=== PATIENT | male | born 1940 | race Caucasian/White ===

== ENCOUNTER → 2016-11-14 | Outpatient (CLI) | payer BC ==
--- NOTE | 2016-11-14 16:01 | DIAGNOSTIC IMAGING REPORT ---
RIGHT KNEE 3 VIEWS CLINICAL HISTORY: Right knee pain. FINDINGS: AP, crosstable lateral, and sunrise views of the right knee are obtained. No prior studies are available for comparison at the time of dictation. The skeletal structures are osteopenic. No fracture is seen. There is moderate tricompartmental degenerative joint space narrowing. This is greatest the medial and patellofemoral compartments. There are marginal osteophytes, degenerative beaking of the tibial spine, and large patellar enthesophytes. A small joint effusion is noted. Soft tissue edema is present around the knee. There is atherosclerotic calcification of the popliteal artery. IMPRESSION: 1. Soft tissue swelling and joint effusion. No fracture is seen. 2. Osteopenia and arthritic change as above. Electronically signed by: Colby Mcmahon M.D. 11/14/2016 3:59 PM Dictated Date/Time: 11/14/2016 3:58 PM
--- NOTE | 2016-11-14 16:01 | DIAGNOSTIC IMAGING REPORT ---
LEFT HAND MIN 3 VIEWS ROUTINE CLINICAL HISTORY: RHEUM ARTHRITIS pain COMPARISON: None DISCUSSION: Findings consistent with her erosive or rheumatoid change throughout the wrist and hand. A metallic foreign body adjacent to the distal aspect third metacarpal. This appears be a nonacute finding. Findings suggesting old trauma and associated deformity proximal interphalangeal joint fifth finger. Marginal erosive changes throughout There is no evidence for soft tissue swelling. IMPRESSION: Findings consistent with erosive rheumatoid arthritic changes throughout the hand and wrist. Electronically signed by: Jericho Dawn M.D. 11/14/2016 3:59 PM Dictated Date/Time: 11/14/2016 3:59 PM
--- NOTE | 2016-11-14 16:06 | DIAGNOSTIC IMAGING REPORT ---
RIGHT HAND MIN 3 VIEWS ROUTINE CLINICAL HISTORY: Rheumatoid arthritis COMPARISON STUDY: None. FINDINGS: Bone mineralization is intact. No fractures identified. Erosive changes seen at the wrist. Mild diffuse soft tissue swelling within the hand and wrist. There are also erosive changes seen at the second and third MCP joints with superimposed osteoarthritis. There is [id number]: Within the DIP and PIP joints with associated marginal osteophytes. This also favors osteoarthritis. There are a few small erosive changes within the DIP and PIP joints which may also represent areas of rheumatoid arthritis. No subluxations. IMPRESSION: 1. Multifocal periarticular erosions seen within the hand and wrist consistent with the patient's history of rheumatoid arthritis. 2. There is diffuse soft tissue swelling within the hand and wrist. 3. There are superimposed osteoarthritis within the hand and wrist. Electronically signed by: Eddie Orona M.D. 11/14/2016 4:05 PM Dictated Date/Time: 11/14/2016 3:59 PM
[2016-11-14 16:27] LABS: BASO % 0.4 %; BASO ABS # 0.03 K/uL (0-0.2); HEMATOCRIT 29.1 % (42-52); IG% 2.5 %; LYMPH % 14.5 %; LYMPH ABS # 1.21 K/uL (1.2-3.4); MEAN CELL VOLUME 85.1 fL (80-100); MEAN CORPUSCULAR HGB CONC 30.6 g/dl (32-36); MONO % 5.9 %; NEUT % 75.7 %; PLATELET COUNT 397 K/uL (130-400); RED BLOOD COUNT 3.42 M/uL (4.7-6.1); WHITE BLOOD COUNT 8.35 K/uL (4.8-10.8)
[2016-11-14 16:58] LABS: ALT/SGPT 23 U/L (12-78)
[2016-11-14 17:07] LABS: ALKALINE PHOSPHATASE 80 U/L (45-117); AST/SGOT 15 U/L (15-37)
[2016-11-14 17:11] LABS: ANISOCYTOSIS PRESENT; COMPLETE YES; POLYCHROMASIA 1+
== END | disposition home or self-care (01) ==
LOC: C.RAD1850 15:15
PROVIDERS: ATTEND Internal Medicine Rheumatology
DX: M06.9 Rheumatoid arthritis, unspecified (principal); M25.561 Pain in right knee; M79.643 Pain in unspecified hand; Z79.899 Other long term (current) drug therapy; M19.031 Primary osteoarthritis, right wrist; M19.041 Primary osteoarthritis, right hand; M85.80 Other specified disorders of bone density and structure, unspecified site; M79.89 Other specified soft tissue disorders; M25.461 Effusion, right knee

== ENCOUNTER 2018-04-30 12:22 | Inpatient (IN) | payer MEDICARE, OTHER ==
[~2018-04-30] VITALS: Ht 170.2 cm; Wt 101.8 kg
[~2018-04-30 12:22] MED LIST: AMLO5TAB3 PO; ASPECOTC PO; LISI20TA3 PO; PRED10TA PO
[2018-04-30] MEDS ORDERED: WARF3TAB6 PO (13:18)
[2018-04-30] MEDS ORDERED: DOCU-94 PO (13:18)
[2018-04-30] MEDS ORDERED: PRAV20TA PO (13:18)
[2018-04-30] MEDS ORDERED: SODI325T9 PO (13:18)
[2018-04-30] MEDS ORDERED: AMLO10TA3 PO (13:18)
[2018-04-30] MEDS ORDERED: LEFL20TA PO (13:18)
[2018-04-30] MEDS ORDERED: ACET-1256 PO (13:18)
[2018-04-30] MEDS ORDERED: ONDANSETRON INJ 2 MG/ML 2 ML VIAL IV STA (13:42)
[2018-04-30] MEDS ORDERED: MoRPHine SULFATE 10 MG/ML CARP/VIAL IV STA (13:42)
[2018-04-30] MEDS ORDERED: MoRPHine SULFATE 4 MG/ML 1 ML CARP\\VIAL ONE (14:24)
--- NOTE | 2018-04-30 14:29 | DIAGNOSTIC IMAGING REPORT ---
CHEST ONE VIEW PORTABLE HISTORY: 77 years-old Male sob eval for pna acute shortness of breath COMPARISON: Chest CT 03/16/2018 TECHNIQUE: Portable AP view of the chest FINDINGS: Cardiac silhouette is mildly enlarged. Calcification of the aorta. No pneumothorax or overt pulmonary edema. Calcified pleural plaques redemonstrated. Chronic mild blunting of the costophrenic angles without large pleural effusion. Patchy alveolar opacities about the right lung base. Degenerative changes of the shoulders and spine with chronic posttraumatic deformity of the distal left clavicle. IMPRESSION: 1. Patchy alveolar opacities of the right lung base are suspicious for pneumonia in the appropriate clinical setting. Follow-up imaging to document resolution is recommended. 2. Bilateral calcified pleural plaques. The above report was generated using voice recognition software. It may contain grammatical, syntax or spelling errors. Electronically signed by: Mahesh Abraham M.D. 04/30/2018 2:27 PM Dictated Date/Time: 04/30/2018 2:25 PM
[2018-04-30 14:41] LABS: HEMATOCRIT 29.8 % (42-52); HEMOGLOBIN 9.6 g/dL (14.0-18.0); MEAN CELL VOLUME 87.9 fL (80-100); MEAN CORPUSCULAR HEMOGLOBIN 28.3 pg (25-34); MEAN CORPUSCULAR HGB CONC 32.2 g/dl (32-36); MEAN PLATELET VOLUME 9.4 fL (7.4-10.4); PLATELET COUNT 362 K/uL (130-400); RED CELL DISTRIBUTION WIDTH CV 16.9 % (11.5-14.5); RED CELL DISTRIBUTION WIDTH SD 54.4 fL (36.4-46.3); WHITE BLOOD COUNT 16.13 K/uL (4.8-10.8)
[2018-04-30 15:04] LABS: ALBUMIN 1.6 gm/dl (3.4-5.0); CALCIUM 8.4 mg/dl (8.5-10.1); CREATININE 2.01 mg/dl (0.60-1.40); POTASSIUM 6.4 mmol/L (3.5-5.1)
[2018-04-30 15:07] LABS: TOTAL PROTEIN 6.8 gm/dl (6.4-8.2)
[2018-04-30 15:20] LABS: BASO % 0.2 %; BASO ABS # 0.03 K/uL (0-0.2); EOS % 0.1 %; EOS ABS # 0.01 K/uL (0-0.5); IG# 0.79 K/uL (0.00-0.02); LYMPH % 5.4 %; LYMPH ABS # 0.87 K/uL (1.2-3.4); MONO % 2.2 %; MONO ABS # 0.35 K/uL (0.11-0.59); NEUT % 87.2 %; NEUT ABS # 14.08 K/uL (1.4-6.5)
[2018-04-30] MEDS ORDERED: CALCIUM GLUCONATE 10% 10 ML VIAL IV STA (15:34)
[2018-04-30] MEDS ORDERED: NovoLIN-R INSULIN PER UNIT CHARGE IV STA (15:34)
[2018-04-30] MEDS ORDERED: ALBUTEROL 0.5% NEB SOLN 2.5 MG/0.5 ML VIAL INH STA (15:34)
[2018-04-30] MEDS ORDERED: DEXTROSE 50% 50 ML SYR IV STA (15:34)
--- NOTE | 2018-04-30 15:47 | DIAGNOSTIC IMAGING REPORT ---
ULTRASOUND R VENOUS DOPP LOWER EXT UNILAT CLINICAL HISTORY: Right leg swelling COMPARISON STUDY: No previous studies for comparison. FINDINGS: Real-time and color flow Doppler imaging were performed. Flow was seen within the femoral, popliteal and calf veins with no intraluminal thrombus demonstrated. The saphenous vein is patent. IMPRESSION: No evidence of right lower extremity DVT. Electronically signed by: Noe Shepard M.D. 04/30/2018 3:46 PM Dictated Date/Time: 04/30/2018 3:46 PM
[2018-04-30] MEDS ORDERED: PIPERACILLIN/TAZOBACTAM 4.5 GM/100ML D5W IV STA (15:49)
[2018-04-30 16:05] LABS: ISTAT IONIZED CALCIUM 0.98 mmol/l (1.12-1.32); ISTAT POTASSIUM 6.5 mEq/L (3.3-5.0)
[2018-04-30 16:17] LABS: INR 6.9 (0.9-1.1); PTT PATIENT 79.4 SECONDS (21.0-31.0)
[2018-04-30] MEDS ORDERED: SODIUM POLYST. SULF SUSP 15G/60ML PO STA (16:29)
[2018-04-30] MEDS ORDERED: VANCOMYCIN CONSULT ACTIVE PRN (16:29)
[2018-04-30] MEDS ORDERED: PHYTONADIONE INJ 10 MG in SODIUM CHLORIDE 0.9% 50ML 50 ML IV ONE (16:30)
[2018-04-30] MEDS ORDERED: POLYETHYLENE (MIRALAX) 17 GM PACK PO PRN ×2 (16:30→16:45)
[2018-04-30] MEDS ORDERED: ONDANSETRON INJ 2 MG/ML 2 ML VIAL IV PRN (16:30)
[2018-04-30] MEDS ORDERED: PHYTONADIONE 10 MG/ML AMP ONE ×2 (16:30→17:08)
[2018-04-30] MEDS ORDERED: MAGNESIUM HYDROXIDE SUSP 30 ML UDC PO PRN (16:30)
[2018-04-30] MEDS ORDERED: ALUMINUM/MAGNESIUM/SIMETH (MAALOX MAX) 30 ML UDC PO PRN (16:30)
[2018-04-30] MEDS ORDERED: ZOLPIDEM TARTRATE 5 MG TAB PO PRN (16:30)
[2018-04-30] MEDS ORDERED: PANTOprazole SOD 40 MG TAB PO STA (16:40)
[2018-04-30] MEDS ORDERED: DOCUSATE SODIUM 100 MG CAP PO PRN (16:45)
[2018-04-30] MEDS ORDERED: HydrALAZINE HCL 20 MG/ML VIAL IV. PRN (16:45)
--- NOTE | 2018-04-30 16:57 | History and Physical ---
History & Physical Date of Service Apr 30, 2018. History & Physical pna, hyperkalemia [id number]
[2018-04-30 17:06] VITALS: O2SAT 90; Ht 170.2 cm; Wt 101.8 kg
--- NOTE | 2018-04-30 17:16 | EMERGENCY ROOM VISIT NOTE ---
History Report prepared by Anyi: Beatriz Fermin Under the Supervision of: Dr. Al Erazo M.D. First contact with patient: 13:29 Chief Complaint: OTHER COMPLAINT Stated Complaint: KNEE PAIN History of Present Illness The patient is a 77 year old male who presents to the Emergency Room with complaints of persistent right knee pain that started 4-5 days ago. The patient rates his pain a 9/10 in severity. The patient states he has pain from his right knee downward. He denies any recent injury. He also has pain in his right wrist. The patient notes he has a history of rheumatoid arthritis. He states his knee and wrist pain are similar to the pain he normally has with his arthritis. The patient is on 10mg of Prednisone and Arava. He has taken Methotrexate before but was taken off of it. For the past 4-5 days he has been more short of breath with exertion, has chest congestion, a low grade fever of 99.2, poor appetite, and increased weakness. The patient reports he does not normally wear oxygen. For the last 48 hours he has had trouble ambulating. He denies chest pain. The patient was seen in the ED on March 16 and they found a possible tumor on his left lung. The daughter states they do not have any answers yet because he was supposed to go to [place] 2 days ago but she was unable to get him out of the house. The patient was put on Coumadin for possible Afib but he denies having any heart palpitations. He reports he has a history of blood clots in his lungs in 2011 with one in the left lung and one in the right. He denies a history of blood clots in his legs. The patient has bilateral leg swelling with the right one bigger than the left but reports this is normal for him for years. 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 He saw Dr. Alexander of [facility] and was told the 4x6 aneurysm needs to be repaired. Source of History: patient, family Onset: 4-5 days ago Position: knee (right) Symptom Intensity: 9/10 Timing: other (persistent) Modifying Factors (Worsening): movement Associated Symptoms: + fevers, + SOB, + weakness, No chest pain Note: Additional symptoms: bilateral leg swelling, poor appetite. Review of Systems See HPI for pertinent positives & negatives. A total of 10 systems reviewed and were otherwise negative. Past Medical & Surgical Medical Problems: (1) Heart disease (2) Hypertension (3) Kidney disease (4) pna, hyperkalemia (5) Pneumonia Family History Cancer Diabetes mellitus Heart disease Hypertension Lung disease Social History Smoking Status: Former Smoker Marital Status: Housing Status: lives alone Occupation Status: retired Current/Historical Medications Scheduled Amlodipine (Norvasc), 10 MG PO QAM Leflunomide (Arava), 20 MG PO QAM Lisinopril (Prinivil), 20 MG PO QAM Pravastatin (Pravachol ), 10 MG PO QAM Sodium Bicarbonate (Antacid) (Sodium Bicarbonate), 650 MG PO TID Warfarin Sod (Jantoven), 3 MG PO 2100 Scheduled PRN Acetaminophen (Tylenol), 1,000 MG PO Q8 PRN for Pain Docusate Sodium (Colace), 1 CAP PO BID PRN for Constipation Prednisone (Prednisone), 10 MG PO QAM PRN for . Allergies Coded Allergies: No Known Allergies (Unverified , 04/30/18) Physical Exam Vital Signs Date Time Temp Pulse Resp B/P (MAP) Pulse Ox O2 Delivery O2 Flow Rate FiO2 04/30/18 16:53 123 22 90 04/30/18 16:47 104/ 04/30/18 16:38 121 17 90 04/30/18 16:31 107/78 04/30/18 16:23 115 20 96 04/30/18 16:16 116/102 04/30/18 16:08 111 22 95 04/30/18 16:05 108/72 04/30/18 15:08 106 18 93 04/30/18 15:03 106 18 93 Nasal Cannula 2.0 04/30/18 15:02 103 18 93 Nasal Cannula 2.0 04/30/18 15:01 104 22 98/65 89 Room Air 04/30/18 15:01 98/65 04/30/18 15:00 105 18 91 04/30/18 15:00 108 19 98/65 88 Room Air 04/30/18 14:59 120/72 04/30/18 14:52 110 21 91 Nasal Cannula 2.0 04/30/18 14:37 108 04/30/18 14:33 108 19 107/68 95 Nasal Cannula 2.0 04/30/18 14:33 107/68 04/30/18 12:22 37.3 111 18 121/73 91 Room Air 04/30/18 12:22 37.3 111 18 91 Room Air Physical Exam Constitutional: Vital signs reviewed. Low O2 saturation. Eyes: Pupils are equal round reactive to light. Conjunctiva are noninjected. ENT: Pharynx is clear without erythema or exudate. Mucous membranes are moist. Neck supple without meningeal signs. Respiratory: Clear to auscultation bilaterally. Breath sounds are equal bilaterally. Cardiovascular: Regular rate and rhythm. No rubs or gallops. GI: Soft, nondistended and nontender. Bowel sounds are present. Musculoskeletal: Right leg diffuse swelling compared to left side, slight increased warmth to both wrists and hands and right knee with swelling, no erythema. Integumentary: No cyanosis. Neurological: The patient is awake and alert. No focal deficits. Psychiatric: Normal affect. Medical Decision & Procedures ER Provider Diagnostic Interpretation: Radiology results as stated below per my review and the radiologist's interpretation: CHEST ONE VIEW PORTABLE HISTORY: 77 years-old Male sob eval for pna acute shortness of breath COMPARISON: Chest CT 03/16/2018 TECHNIQUE: Portable AP view of the chest FINDINGS: Cardiac silhouette is mildly enlarged. Calcification of the aorta. No pneumothorax or overt pulmonary edema. Calcified pleural plaques redemonstrated. Chronic mild blunting of the costophrenic angles without large pleural effusion. Patchy alveolar opacities about the right lung base. Degenerative changes of the shoulders and spine with chronic posttraumatic deformity of the distal left clavicle. IMPRESSION: 1. Patchy alveolar opacities of the right lung base are suspicious for pneumonia in the appropriate clinical setting. Follow-up imaging to document resolution is recommended. 2. Bilateral calcified pleural plaques. The above report was generated using voice recognition software. It may contain grammatical, syntax or spelling errors. Electronically signed by: Mahesh Abraham M.D. 04/30/2018 2:27 PM Dictated Date/Time: 04/30/2018 2:25 PM ULTRASOUND R VENOUS DOPP LOWER EXT UNILAT CLINICAL HISTORY: Right leg swelling COMPARISON STUDY: No previous studies for comparison. FINDINGS: Real-time and color flow Doppler imaging were performed. Flow was seen within the femoral, popliteal and calf veins with no intraluminal thrombus demonstrated. The saphenous vein is patent. IMPRESSION: No evidence of right lower extremity DVT. Electronically signed by: Noe Shepard M.D. 04/30/2018 3:46 PM Dictated Date/Time: 04/30/2018 3:46 PM Laboratory Results 04/30/18 14:27 Red Blood Count 3.39, Mean Corpuscular Volume 87.9, Mean Corpuscular Hemoglobin 28.3, Mean Corpuscular Hemoglobin Concent 32.2, Mean Platelet Volume 9.4, Neutrophils (%) (Auto) 87.2, Lymphocytes (%) (Auto) 5.4, Monocytes (%) (Auto) 2.2, Eosinophils (%) (Auto) 0.1, Basophils (%) (Auto) 0.2, Neutrophils # (Auto) 14.08, Lymphocytes # (Auto) 0.87, Monocytes # (Auto) 0.35, Eosinophils # (Auto) 0.01, Basophils # (Auto) 0.03 Test 04/30/18 14:27 04/30/18 14:31 04/30/18 14:42 04/30/18 15:56 White Blood Count 16.13 K/uL (4.8-10.8) Red Blood Count 3.39 M/uL (4.7-6.1) Hemoglobin 9.6 g/dL (14.0-18.0) Hematocrit 29.8 % (42-52) Mean Corpuscular Volume 87.9 fL (80-100) Mean Corpuscular Hemoglobin 28.3 pg (25-34) Mean Corpuscular Hemoglobin Concent 32.2 g/dl (32-36) Platelet Count 362 K/uL (130-400) Mean Platelet Volume 9.4 fL (7.4-10.4) Neutrophils (%) (Auto) 87.2 % Lymphocytes (%) (Auto) 5.4 % Monocytes (%) (Auto) 2.2 % Eosinophils (%) (Auto) 0.1 % Basophils (%) (Auto) 0.2 % Neutrophils # (Auto) 14.08 K/uL (1.4-6.5) Lymphocytes # (Auto) 0.87 K/uL (1.2-3.4) Monocytes # (Auto) 0.35 K/uL (0.11-0.59) Eosinophils # (Auto) 0.01 K/uL (0-0.5) Basophils # (Auto) 0.03 K/uL (0-0.2) RDW Standard Deviation 54.4 fL (36.4-46.3) RDW Coefficient of Variation 16.9 % (11.5-14.5) Immature Granulocyte % (Auto) 4.9 % Immature Granulocyte # (Auto) 0.79 K/uL (0.00-0.02) Ovalocytes 1+ Echinocytes 1+ Est Creatinine Clear Calc Drug Dose 33.9 ml/min Total Bilirubin 0.6 mg/dl (0.2-1) Aspartate Amino Transf (AST/SGOT) 14 U/L (15-37) Alanine Aminotransferase (ALT/SGPT) 33 U/L (12-78) Alkaline Phosphatase 102 U/L (45-117) Total Protein 6.8 gm/dl (6.4-8.2) Albumin 1.6 gm/dl (3.4-5.0) Globulin 5.2 gm/dl (2.5-4.0) Albumin/Globulin Ratio 0.3 (0.9-2) Prothrombin Time 69.5 SECONDS (9.0-12.0) Prothromb Time International Ratio 6.9 (0.9-1.1) Activated Partial Thromboplast Time 79.4 SECONDS (21.0-31.0) Partial Thromboplastin Ratio 3.1 Bedside Troponin I < 0.030 ng/ml (0-0.045) Bedside Hemoglobin 9.2 g/dl (14.0-18.0) Bedside Hematocrit 27 % (42-52) Bedside Sodium 134 mEq/L (135-144) Bedside Potassium 6.5 mEq/L (3.3-5.0) Bedside Chloride 105 mEq/L (101-112) Bedside Total CO2 21 mEq/l (24-31) Bedside Blood Urea Nitrogen 60 mg/dl (7-18) Bedside Creatinine 2.0 mg/dl (0.6-1.3) Bedside Glucose (other) 120 mg/dl (70-99) Bedside Ionized Calcium (Berhane) 0.98 mmol/l (1.12-1.32) Test 04/30/18 16:38 Laboratory results as reviewed by me. Medications Administered Medications (Trade) Dose Ordered Sig/Sascha Route Start Time Stop Time Status Last Admin Dose Admin Ondansetron HCl (Zofran Inj) 4 mg NOW STAT IV 04/30/18 13:42 04/30/18 13:45 DC 04/30/18 14:25 4 MG Morphine Sulfate (MoRPHine SULFATE INJ) 4 mg STK-MED ONCE .ROUTE 04/30/18 14:24 04/30/18 14:25 DC 04/30/18 14:29 4 MG Insulin Human Regular (novoLIN-R U-100 PER UNIT) 10 units NOW STAT IV 04/30/18 15:34 04/30/18 15:36 DC 04/30/18 16:16 10 UNITS Dextrose (Dextrose 50% 50ML Syringe) 50 ml NOW STAT IV 04/30/18 15:34 04/30/18 15:36 DC 04/30/18 16:11 50 ML Calcium Gluconate (Calcium Gluconate 10%) 1,000 mg NOW STAT IV 04/30/18 15:34 04/30/18 15:36 DC 04/30/18 16:08 1,000 MG Albuterol Sulfate (Ventolin 0.5% 2.5MG/0.5ML Neb) 2.5 mg NOW STAT INH 04/30/18 15:34 04/30/18 15:36 DC 04/30/18 16:16 2.5 MG Piperacillin Sod/ Tazobactam Sod (Zosyn Iv) 4.5 gm NOW STAT IV 04/30/18 15:49 04/30/18 15:52 DC 04/30/18 16:41 4.5 GM ECG Per My Interpretation Indication: SOB/dyspnea Rate (beats per minute): 107 Rhythm: sinus tachycardia Findings: other (hyperacute T wave in lead 2 and lead 3, no PVC, no ST elevation) ED Course 1329: The patient was evaluated in room C12B. A complete history and physical exam was performed. 1342: Ordered Zofran Inj 4 mg IV, Morphine Sulfate 4 mg IV. 1424: Ordered Morphine Sulfate 4 mg .ROUTE. 1534: Ordered Albuterol Sulfate 2.5 mg INH, Calcium Gluconate 1000 mg IV, Dextrose 50 ml IV, Insulin Human Regular 10 units IV. 1535: When the patient went to ultrasound, they noticed lab showed a potassium of 6.4. The nurse was told to do an iStat. There was no hemolysis in ultrasound. The charge nurse states she tried call me earlier but my phone was busy so she did not let me now. 1538: I informed the family about what was going on with the patient at this time. 1542: Per the nurse, the patient's pulse ox dropped into the high 80s when taken off of O2. 1549: Ordered Zosyn Iv 4.5 gm IV. 1550: I spoke with Dr. Wakefield, [facility] Hospitalist. She agrees to evaluate the patient for further management. 1600: The iStat confirmed hyperkalemia and he is being given medications at this time. 1620: I informed the patient on his elevated INR. 1630: Ordered Phytonadione 10 mg .ROUTE, Phytonadione 10 mg/Sodium Chloride 51 ml @ 102 mls/hr Protocol IV. 1655: The patient repeat EKG indicated by hyperkalemia shows sinus tachycardia with a rate of 118, persistent peaked T waves in precordial leads, no QT prolongation. Medical Decision This is a 77-year-old male who presents with joint pain and shortness of breath with generalized weakness. Differential diagnosis includes rheumatoid arthritis , pneumonia, pleural effusion, acute coronary syndrome, pulmonary embolism. I did perform a limited focused review of portions of the patient's old chart on the electronic medical record. The patient was seen in February for stroke symptoms and was diagnosed with a right MCA stroke as well as several cerebral aneurysms and a pulmonary mass. He was transferred to [facility]. I did evaluate the patient as noted above. The patient is presenting with chief complaint of joint pain which she describes as a flare of his rheumatoid arthritis. He also notes that he has been increasingly weak and has had shortness of breath on exertion which is worse than normal for him. IV access was established. The patient was placed on a continuous patient monitor. I did order and personally review the patient's 12-lead EKG and chest x-ray as described above. He does have hyperacute T waves on twelve-lead EKG. His chest x-ray demonstrates a right lower lobe infiltrate. I did order and review the patient's blood work as noted in the electronic medical record. His INR is supratherapeutic at 6.9. His creatinine is actually decreased from normal but his potassium is 6.4. I did order a i-STAT to confirm this. He was then given IV calcium gluconate. He was also given IV insulin and glucose. He was given an albuterol nebulizer. Blood cultures were obtained and he was given Zosyn IV for his pneumonia. He was also placed on supplemental oxygen due to his hypoxemia. I did order a Doppler ultrasound of the right leg. I did review the images myself as well as the radiology report as described above. This did not show any evidence of DVT. I did reassess the patient. I did discuss the test results with the patient and his family. He was given vitamin K 10 mg IV because of his supratherapeutic INR. I did discuss the case with the hospitalist and correctional casework specialist. Medication Reconcilliation Current Medication List: was personally reviewed by me Blood Pressure Screening Patient's blood pressure: Normal blood pressure Consults Time Called: 1545 Consulting Physician: Dr. Wkaefield, [facility] Hospitalist Returned Call: [address] Wakefield [facility] Hospitalist. She agrees to evaluate the patient for further management. Impression Primary Impression: Hyperkalemia Additional Impressions: Hypoxemia Right lower lobe pneumonia Chronic kidney disease Chronic anemia Supratherapeutic INR Rheumatoid arthritis Critical Care I have personally spent 40 minutes of critical care time in the direct management of this patient. This includes bedside care, interpretation of diagnostic studies, and testing, discussion with consultants, patient, and family members, and other required patient management activities. This 40 minutes is in excess of all separately billable procedures. Scribe Attestation The scribe's documentation has been prepared under my direct and personally reviewed by me in its entirety. I confirm that the note above accurately reflects all work, treatment, procedures, and medical decision making performed by me. Departure Information Dispostion Being Evaluated By Hospitalist Referrals Emery Dash D.O. (PCP) Patient Instructions My [facility] Problem Qualifiers Additional Impressions: Right lower lobe pneumonia Pneumonia type: due to unspecified organism Qualified Codes: J18.1 - Lobar pneumonia, unspecified organism Chronic kidney disease Chronic kidney disease stage: unspecified stage Qualified Codes: N18.9 - Chronic kidney disease, unspecified Rheumatoid arthritis Rheumatoid arthritis location: multiple sites Rheumatoid factor presence: unspecified presence Qualified Codes: M06.9 - Rheumatoid arthritis, unspecified
[2018-04-30] MEDS ORDERED: PIPERACILL/TAZOBAC CONSULT ACTIVE PRN (17:24)
[2018-04-30] MEDS ORDERED: DOCUSATE SODIUM 100 MG CAP PO STA (17:28)
[2018-04-30 17:41] LABS: CALCIUM 9.2 mg/dl (8.5-10.1); CREATININE 1.97 mg/dl (0.60-1.40); POTASSIUM 6.2 mmol/L (3.5-5.1)
[2018-04-30] MEDS: MoRPHine SULFATE 4 MG/ML 1 ML CARP\\VIAL IV PRN (17:44)
[2018-04-30] MEDS ORDERED: ALBUT/IPRATROP 3MG/0.5MG NEB 3 ML VIAL INH STA (17:56)
[2018-04-30] MEDS ORDERED: INSULIN HUMAN REGULAR SC STA (17:56)
[2018-04-30 18:00] VITALS: BP 128/69; PULSE 118; TEMP 37.5; O2SAT 93
[2018-04-30] MEDS ORDERED: VANCOMYCIN IV 2,250 MG in SODIUM CHLORIDE 0.9% 500ML 500 ML IV ONE (18:00)
[2018-04-30] MEDS: SODIUM CHLORIDE 0.9% 1000ML 1,000 ML IV SCH (18:15)
[2018-04-30] MEDS ORDERED: CALCIUM GLUCONATE 10% 1,000 MG in SODIUM CHLORIDE 0.9% 50ML 50 ML IV ONE (18:15)
[2018-04-30] MEDS ORDERED: DEXTROSE 50% 50 ML SYR IV ONE (18:15)
[2018-04-30] MEDS ORDERED: INSULIN HUMAN REGULAR PER UNIT 10 UNITS in SYRINGE 9.9 ML IV ONE (18:15)
--- NOTE | 2018-04-30 18:31 | HISTORY & PHYSICAL EXAMINATION ---
DATE OF ADMISSION: 04/30/2018 This is level 3 inpatient admission. CHIEF COMPLAINT: Knee pain, cough, difficulty breathing and decreased appetite. HISTORY OF PRESENT ILLNESS: Patient is a 77-year-old white male with a significant past medical history of hypertension, rheumatoid disease, history of blood clot on Coumadin, coming to the hospital Emergency Department because of the above chief complaint. He reported about persistent right knee pain for 4-5 days, pain was 9/10. He has been having chronic right knee pain, following up with [facility], Dr. Ireland, Dr. Hensley, is on oral prednisone, he also reported right wrist pain. In addition to taking prednisone, he was taking Arava. He has taken methotrexate before but was taken off of it. Associated dyspnea on exertion for 4 or 5 days with chest congestion, lower-grade fever, poor appetite, increased weakness. Normally not wear oxygen. He was found to have possible lung tumors in February 2018, was referred to [facility]. Patient is on Coumadin for the Afib hx stroke prevention. Has history of blood clot in the lungs in 2011. In the Emergency Room, he was found to have a pneumonia, possible sepsis, severe hyperkalemia, chronic kidney failure. Because of hyperkalemia, he got medicines of nebulizer treatment, D50 and insulin. He was found to be hypoxic in the Emergency Room as well. Pulse ox was at 88% in room air. When I interviewed with the patient, he looked chronically ill looking, confirmed me the above information, mild fever, denied chills, mild cough and congestion, denied productive cough or hemoptysis, denied nausea, vomiting, abdominal pain. However, he has significant constipation. Denied dysuria, urgency and frequencies. Denied lower extremity swelling. Denied chest pain, palpitation. Denied facial droop, slurry speeches. However, he has history of CVA with left sided residual weakness. Skin has no rashes. PAST MEDICAL HISTORY: 1. Like I mentioned in the above which include a CVA with left sided residual weakness 2. Rheumatoid arthritis. 3. Pulmonary embolization in the lung. 4. AFib on Coumadin. 5. Hypertension. 6. Rheumatoid arthritis. 7. Dyslipidemia. PAST SURGICAL HISTORY: Otherwise unremarkable, SOCIAL HISTORY: Former smoker, quit a couple years ago. Lives alone. Patient is a , has 2 children at the bedside. FAMILY HISTORY: Includes cancer, diabetic, heart disease, hypertension, lung disease. MEDICATIONS: Taking at home include [id number] mg p.o. q.a.m., Arava 20 mg p.o. q.a.m., lisinopril 20 mg p.o. q.a.m., Pravachol 10 mg p.o. q.a.m., bicarbonate 650 mg p.o. t.i.d., warfarin 3 mg p.o. q. 9 p.m. As needed medications include Colace 1 tab p.o. b.i.d. p.r.n. for constipation, prednisone 10 mg p.o. q.a.m. p.r.n. for the pain, Tylenol 1000 mg p.o. q. 8-hour p.r.n. for the pain or fever. ALLERGIES: No known drug allergy. REVIEW OF SYSTEMS: Please see HPI, otherwise 14-point organ system review were negative. PHYSICAL EXAMINATION: VITAL SIGNS: Temperature is 37.3, pulse highest was up to 110. Respiratory rate 21. Blood pressure highest was up to 120/72. Pulse lowest at 88. GENERAL: Patient is a white male, chronically ill looking, awake, alert and orientated, no acute distress. HEAD: Normocephalic. EYES: Pupils equal, round, responds to light. EARS: Ear was normal. NOSE: Normal. NECK: Supple. Thyroid no enlargement. Trachea midline. HEART: Regular rhythm. S1, S2. LUNGS: Decreased breathing sounds. There were no wheezing, rhonchi or crackles. ABDOMEN: Soft, nontender. Bowel sound was positive. GENITOURINARY AND RECTAL: Deferred. BILATERAL LOWER EXTREMITIES: Bilateral CVA was nontender. Homans' sign was negative. There was no clubbing, no cyanosis. Left side decreased muscle strains, 5- in the left upper extremity and left lower extremities. PSYCHIATRY: Normal. SKIN: Has no rashes. LABORATORY STUDIES: WBC 16, hemoglobin 9, platelet 362. PT 69. INR 6.9. Sodium 134, potassium 6.5, chloride 105. BUN 60, creatinine 2.0. Blood glucose 120. AST 14, ALT 33, alkaline phosphate 103. Total protein 6.8, albumin 1.6. UA is pending. IMAGING STUDIES: Chest x-ray studies in the Emergency Room shows patchy alveolar opacities in the right lower lung, suspicious of pneumonia. Bilateral lower extremity has no DVT. EKG shows normal sinus tachycardia, no ST-T phase changes. ASSESSMENT AND PLAN: A 77-year-old white male with conditions as below: 1. Likely pneumonia 2. Severe hyperkalemia. 3. Chronic kidney disease stage III. 4. Mild tachycardia. 5. Hypertherapeutic INR. 6. History of pulmonary embolism. 7. History of atrial fibrillation, on Coumadin. 8. Rheumatoid arthritis, is on oral steroid. 9. Because of the patient's above conditions, will need a tele monitor. We will closely monitor of the potassium level. We will give Kayexalate 1 dose now, check a lab in 6 o'clock and we will treat for the hyperkalemia. Kayexalate will have for the hyperkalemia; however, we will order Colace and MiraLax for the constipation. Will need to have tele admission because of pneumonia and hyperkalemia. We will give vancomycin and Zosyn coverage because of patient on chronic prednisone for the treatment of rheumatoid arthritis, he possibly is immunocompromised. We will give hydrocortisone IV 100 at q. 8h which will help for the treatment of pneumonia and at the same time treatment for the right knee pain secondary to rheumatoid arthritis. 10. Like I mentioned, we will follow up potassium level for hyperkalemia. We will follow up renal functions for the chronic kidney disease stage III. Hold lisinopril for now because creatinine is more than 2. We will order hydralazine p.r.n. for accelerated hypertension. Blood cultures sent. We will continue to follow up. 11. Gastrointestinal and deep vein thrombosis prophylaxis is covered. Discussed with patient and family about the care plan. I answered all the questions. Patient is do not resuscitation. MTDD
[2018-04-30] MEDS: ALBUT/IPRATROP 3MG/0.5MG NEB 3 ML VIAL INH SCH (18:54)
[2018-04-30 18:55] VITALS: PULSE 118; O2SAT 90
[2018-04-30] MEDS ORDERED: MoRPHine SULFATE 4 MG/ML 1 ML CARP\\VIAL IV STA (19:43)
[2018-04-30 19:55] VITALS: BP 103/65; PULSE 119; TEMP 37.3; O2SAT 91
[2018-04-30] MEDS: DOCUSATE SODIUM 100 MG CAP PO SCH (20:54)
[2018-04-30] MEDS: HYDROCORTISONE IV 100 MG in SYRINGE 0 ML IV SCH (20:56)
[2018-04-30] MEDS: SODIUM BICARBONATE 650 MG TAB PO SCH (20:56)
[2018-04-30] MEDS ORDERED: HEPARIN SOD 5000 UNIT/0.5 ML CARP SQ SCH (21:00)
--- NOTE | 2018-04-30 21:03 | Pharmacy Progress Note ---
Pharmacy Abx Dose Short Note Date of Service Apr 30, 2018. Assessment & Plan Assessment 77 year old male receiving Vancomycin and Zosyn for treatment of possible pneumonia. Day # 1 of antimicrobial therapy. PMH of CKD stage 3, A.fib, HTN, RA, and h/o CVA. * Takes prednisone PRN, admitted with INR of 6.9 * Admitted in February with CVA * Blood cultures pending. * Unsure of renal baseline. Plan Vancomycin * Loading dose of 2250mg (~24mg/kg) x 1 * Goal trough level for pneumonia : 15 to 20 mcg/mL * Random level ordered for: 2 with am labs Zosyn * 4.5 gm given in ED * 3.375mg (EI) q 8 hours Pharmacy will continue to follow and will adjust dose/frequency as necessary. Thank you.
[2018-04-30 21:53] LABS: CALCIUM 9.1 mg/dl (8.5-10.1); CREATININE 2.03 mg/dl (0.60-1.40); POTASSIUM 6.6 mmol/L (3.5-5.1)
[2018-04-30] MEDS: PIPERACILL/TAZOBAC IV 3.375 GM in D5W 100ML IV SCH (22:35)
[2018-04-30] MEDS ORDERED: CALCIUM GLUCONATE 10% 1,000 MG in SODIUM CHLORIDE 0.9% 50ML 50 ML IV STA (23:28)
[2018-04-30 23:30] VITALS: BP 134/74; PULSE 121; TEMP 37.5; O2SAT 91
[2018-04-30] MEDS ORDERED: INSULIN HUMAN REGULAR IV ONE (23:45)
[2018-04-30] MEDS ORDERED: INSULIN HUMAN REGULAR PER UNIT 8 UNITS in SYRINGE 7.92 ML IV SCH (23:45)
[2018-04-30] MEDS ORDERED: FUROSEMIDE INJ 20 MG in SYRINGE 0 ML IV ONE (23:45)
[2018-04-30] MEDS ORDERED: DEXTROSE 50% 50 ML SYR IV SCH (23:45)
[2018-05-01] VITALS (10 sets, daily range): BP systolic 112–135; BP diastolic 67–88; PULSE 96–113; TEMP 36.3–37.1; O2SAT 91–97
[2018-05-01] MEDS: SODIUM CHLORIDE 0.9% 1000ML 1,000 ML IV SCH ×4 (04:05→21:21)
[2018-05-01] MEDS: ALBUT/IPRATROP 3MG/0.5MG NEB 3 ML VIAL INH SCH ×4 (06:53→19:36)
[2018-05-01 07:02] LABS: CALCIUM 8.3 mg/dl (8.5-10.1); CREATININE 2.11 mg/dl (0.60-1.40); POTASSIUM 5.5 mmol/L (3.5-5.1)
[2018-05-01] MEDS: HYDROCORTISONE IV 100 MG in SYRINGE 0 ML IV SCH ×3 (07:41→21:24)
[2018-05-01] MEDS: PIPERACILL/TAZOBAC IV 3.375 GM in D5W 100ML IV SCH (07:45)
[2018-05-01] MEDS: MoRPHine SULFATE 4 MG/ML 1 ML CARP\\VIAL IV PRN ×2 (07:45→13:59)
[2018-05-01] MEDS: LEFLUNOMIDE 10 MG TAB PO SCH (07:49)
[2018-05-01] MEDS: DOCUSATE SODIUM 100 MG CAP PO SCH ×2 (07:50→21:22)
[2018-05-01] MEDS: PRAVASTATIN SOD 10 MG TAB PO SCH (07:50)
[2018-05-01] MEDS: SODIUM BICARBONATE 650 MG TAB PO SCH ×3 (07:50→21:24)
[2018-05-01] MEDS: POLYETHYLENE (MIRALAX) 17 GM PACK PO SCH (07:50)
[2018-05-01] MEDS: AMLODIPINE BESYLATE 5 MG TAB PO SCH (07:50)
[2018-05-01] MEDS: PANTOprazole SOD 40 MG TAB PO SCH (07:52)
[2018-05-01] MEDS ORDERED: SODIUM POLYST. SULF SUSP 15G/60ML PO STA (08:20)
[2018-05-01] MEDS ORDERED: POLYETHYLENE (MIRALAX) 17 GM PACK PO STA (08:23)
--- NOTE | 2018-05-01 08:23 | Clinical Documentation Query ---
ERASMO Pan : CLINICAL DOCUMENTATION QUERY Patient is a 77 year old male admitted for evaluation and treatment of pneumonia. Documentation includes the following: "We will give vancomycin and Zosyn coverage because of patient on chronic prednisone for the treatment of rheumatoid arthritis, he possibly is immunocompromised". As appropriate, consider documentation as suggested below as this impacts accurate DRG assignment. Thank you. In your clinical opinion is this patient being managed for: ( x) Possible MRSA pneumonia ( ) Not Agree ( ) Other explanation of clinical findings (No explanation is considered a No Response) ( ) Unable to determine ( ) Need to Discuss (Phone CDS or qliq) (No discussion is considered a No Response) The medical record reflects the following clinical findings, treatment, and risk factors. Clinical Indicators: As above Treatment: IV Vancomycin, IV Zosyn Risk Factors: Immunocompromised. Prednisone therapy Please clarify and document your clinical opinion in the progress notes and discharge summary. Terms such as "probable", "suspected", "likely", "questionable", "possible", or "still to be ruled out" are acceptable. IF IN AGREEMENT, YOU MUST DOCUMENT ABOVE DIAGNOSTIC STATEMENT IN DAILY PROGRESS NOTES AND DISCHARGE SUMMARY. This document is not part of the patient's record. Thank You, Denis Vo, RN [phone]
[2018-05-01] MEDS ORDERED: POLYETHYLENE (MIRALAX) 17 GM PACK PO PRN (08:30)
[2018-05-01] MEDS: VANCOMYCIN IV 1,250 MG in SODIUM CHLORIDE 0.9% 250ML 250 ML IV SCH ×2 (09:41→21:36)
[2018-05-01 10:31] LABS: INR 1.1 (0.9-1.1)
[2018-05-01] MEDS ORDERED: WARFARIN SOD 3 MG TAB PO SCH (11:00)
--- NOTE | 2018-05-01 12:32 | Nephrology Consultation ---
Nephrology Consultation Date & Providers Date of Consultation: May 01, 2018. Primary Care Provider: Emery Dash D.O. Referring Provider: Reason for Consultation GIANCARLO / CKD History of Present Illness Mr. Davis is a 77 year old white male who is seen at the request of Dr. Brooks for evaluation of acute on chronic kidney injury. Medical records in the hospital EMR were reviewed today and are summarized as follows: Mr. Davis has CKD w/ baseline creatinine 1.5. He has not undergone outpatient nephrology in the past. His medical history is also significant for RA (Prednisone + Arava therapy), DVT and chronic atrial fibrillation on Warfarin therapy, cerebral aneurysms and possible lung mass. He presented to the ED for evaluation of progressive fatigue. Evaluation revealed the presence of a RLL pneumonia, GIANCARLO / CKD with serum creatinine 2.0 and hyperkalemia. Mr. aDvis has been admitted for IV antibiotic therapy and correction of hyperkalemia. Past Medical/Surgical History Medical: # RA managed by [facility] # Chronic atrial fibrillation - on Warfarin therapy # h/o DVT # Cerebral aneurysms Allergies Coded Allergies: No Known Allergies (Unverified , 04/30/18) Inpatient Medications Current Inpatient Medications Medications (Trade) Dose Ordered Sig/Sascha Route Start Time Stop Time Status Last Admin Dose Admin Sodium Chloride 1,000 ml @ 150 mls/hr Q6H40M IV 04/30/18 16:29 05/30/18 16:28 05/01/18 04:05 150 MLS/HR Acetaminophen (Tylenol Tab) 650 mg Q4H PRN PO 04/30/18 16:30 05/30/18 16:29 Al Hydrox/Mg Hydrox/Simethicone (Maalox Max Susp) 15 ml Q4H PRN PO 04/30/18 16:30 05/30/18 16:29 Magnesium Hydroxide (Milk Of Magnesia Susp) 30 ml Q12H PRN PO 04/30/18 16:30 05/30/18 16:29 Zolpidem Tartrate (Ambien Tab) 5 mg HSZ PRN PO 04/30/18 16:30 05/30/18 16:29 Ondansetron HCl (Zofran Inj) 4 mg Q6H PRN IV 04/30/18 16:30 05/30/18 16:29 Polyethylene (Miralax Powder Packet) 17 gm DAILY PRN PO 04/30/18 16:30 05/30/18 16:29 Vancomycin HCl (Consult) 1 ea UD PRN N/A 04/30/18 16:29 05/30/18 16:28 Hydrocortisone Sodium Succinate 100 mg/Syringe 2 ml @ 4 mls/min Q8 IV 04/30/18 22:00 05/30/18 21:59 05/01/18 07:41 4 MLS/MIN Miscellaneous Information (Consult) 1 ea UD PRN N/A 04/30/18 17:24 05/30/18 17:23 Amlodipine Besylate (Norvasc Tab) 10 mg QAM PO 05/01/18 09:00 05/31/18 08:59 05/01/18 07:50 10 MG Docusate Sodium (coLACE CAP) 100 mg BID PRN PO 04/30/18 16:45 05/30/18 16:44 Pravastatin Sodium (Pravachol Tab) 10 mg QAM PO 05/01/18 09:00 05/31/18 08:59 05/01/18 07:50 10 MG Leflunomide (Arava) 20 mg QAM PO 05/01/18 09:00 05/31/18 08:59 05/01/18 07:49 20 MG Sodium Bicarbonate (Sodium Bicarbonate Tab) 650 mg TID PO 04/30/18 21:00 05/30/18 20:59 05/01/18 07:50 650 MG Hydralazine HCl (HydrALAZINE INJ) 20 mg Q4 PRN IV. 04/30/18 16:45 05/30/18 16:44 Albuterol/ Ipratropium (Duoneb) 3 ml QIDR INH 04/30/18 20:00 05/30/18 19:59 05/01/18 11:10 3 ML Morphine Sulfate (MoRPHine SULFATE INJ) 4 mg Q6 PRN IV 04/30/18 16:45 05/14/18 16:44 05/01/18 07:45 4 MG Docusate Sodium (coLACE CAP) 100 mg BID PO 04/30/18 21:00 05/30/18 20:59 05/01/18 07:50 100 MG Polyethylene (Miralax Powder Packet) 17 gm DAILY PO 05/01/18 09:00 05/31/18 08:59 05/01/18 07:50 17 GM Pantoprazole Sodium (Protonix Tab) 40 mg QAM PO 05/01/18 09:00 05/04/18 09:01 05/01/18 07:52 40 MG Piperacillin Sod/ Tazobactam Sod 3.375 gm/Dextrose 115 ml @ 28.75 mls/ hr Q8H IV 04/30/18 22:00 05/07/18 15:59 05/01/18 07:45 28.75 MLS/HR Vancomycin HCl 1250 mg/Sodium Chloride 275 ml @ 125 mls/hr Q12H IV 05/01/18 10:00 05/08/18 09:59 05/01/18 09:41 125 MLS/HR Warfarin Sodium (Coumadin Tab) 3 mg DAILY@1600 PO 05/01/18 11:00 05/31/18 10:59 05/01/18 11:41 3 MG Family History Cancer Diabetes mellitus Heart disease Hypertension Lung disease Negative for CKD / ESRD Social History Smoking Status: Former Smoker Marital Status: Occupation: retired . Retired. Former smoker. Review of Systems Constitutional: No fever Respiratory: No cough, No sputum Cardiovascular: No chest pain Abdomen: No pain, No nausea, No vomiting Integumentary: No rash A complete review of systems was performed. Pertinent positives are noted above. All other systems are negative. Physical Exam Date Time Temp Pulse Resp B/P (MAP) Pulse Ox O2 Delivery O2 Flow Rate FiO2 05/01/18 11:51 36.7 96 18 113/73 (86) 91 Nasal Cannula 05/01/18 11:11 103 20 93 Nasal Cannula 3.0 05/01/18 08:00 Nasal Cannula 2.0 05/01/18 07:59 37.1 102 18 135/88 (104) 97 Nasal Cannula 05/01/18 06:53 100 20 95 Nasal Cannula 3.0 05/01/18 03:23 37.0 112 18 112/72 (85) 93 Nasal Cannula 3.0 04/30/18 23:30 37.5 121 22 134/74 (94) 91 Nasal Cannula 3.0 04/30/18 20:00 Nasal Cannula 2.0 04/30/18 19:55 37.3 119 21 103/65 (78) 91 Nasal Cannula 2.0 04/30/18 18:55 118 22 90 Nasal Cannula 2.0 04/30/18 18:00 Nasal Cannula 2.0 04/30/18 18:00 37.5 118 20 128/69 (88) 93 Nasal Cannula 2.0 04/30/18 17:33 112 18 121/74 93 04/30/18 17:28 115 20 91 04/30/18 17:28 115 20 91 04/30/18 17:16 121/74 04/30/18 17:16 121/74 04/30/18 17:13 112 19 93 04/30/18 17:06 90 Nasal Cannula 2.0 04/30/18 17:01 110/83 04/30/18 17:01 110/83 04/30/18 16:58 121 23 90 04/30/18 16:58 121 23 90 04/30/18 16:53 123 22 90 04/30/18 16:47 104/ 04/30/18 16:38 121 17 90 04/30/18 16:31 107/78 04/30/18 16:23 115 20 96 04/30/18 16:16 116/102 04/30/18 16:08 111 22 95 04/30/18 16:05 108/72 04/30/18 15:08 106 18 93 04/30/18 15:03 106 18 93 Nasal Cannula 2.0 04/30/18 15:02 103 18 93 Nasal Cannula 2.0 04/30/18 15:01 104 22 98/65 89 Room Air 04/30/18 15:01 98/65 04/30/18 15:00 105 18 91 04/30/18 15:00 108 19 98/65 88 Room Air 04/30/18 14:59 120/72 04/30/18 14:52 110 21 91 Nasal Cannula 2.0 04/30/18 14:37 108 04/30/18 14:33 108 19 107/68 95 Nasal Cannula 2.0 04/30/18 14:33 107/68 04/30/18 12:22 37.3 111 18 121/73 91 Room Air 04/30/18 12:22 37.3 111 18 91 Room Air General Appearance: no apparent distress Head: atraumatic Eyes: PERRL, EOMI Neck: no adenopathy Respiratory/Chest: + crackles (R base) Cardiovascular: regular rate, rhythm Abdomen/GI: normal bowel sounds, non tender, soft Extremities/Musculoskelatal: no calf tenderness, no pedal edema Neurologic/Psych: alert Laboratory Results Last 24 Hours Test 04/30/18 14:27 04/30/18 14:31 04/30/18 14:42 04/30/18 15:56 White Blood Count 16.13 K/uL Red Blood Count 3.39 M/uL Hemoglobin 9.6 g/dL Hematocrit 29.8 % Mean Corpuscular Volume 87.9 fL Mean Corpuscular Hemoglobin 28.3 pg Mean Corpuscular Hemoglobin Concent 32.2 g/dl Platelet Count 362 K/uL Mean Platelet Volume 9.4 fL Neutrophils (%) (Auto) 87.2 % Lymphocytes (%) (Auto) 5.4 % Monocytes (%) (Auto) 2.2 % Eosinophils (%) (Auto) 0.1 % Basophils (%) (Auto) 0.2 % Neutrophils # (Auto) 14.08 K/uL Lymphocytes # (Auto) 0.87 K/uL Monocytes # (Auto) 0.35 K/uL Eosinophils # (Auto) 0.01 K/uL Basophils # (Auto) 0.03 K/uL RDW Standard Deviation 54.4 fL RDW Coefficient of Variation 16.9 % Immature Granulocyte % (Auto) 4.9 % Immature Granulocyte # (Auto) 0.79 K/uL Ovalocytes 1+ Echinocytes 1+ Sodium Level 132 mmol/L Potassium Level 6.4 mmol/L Chloride Level 104 mmol/L Carbon Dioxide Level 20 mmol/L Anion Gap 8.0 mmol/L 16.0 mmol/L Blood Urea Nitrogen 71 mg/dl Creatinine 2.01 mg/dl Est Creatinine Clear Calc Drug Dose 33.9 ml/min Estimated GFR () 36.0 Estimated GFR (Non- 31.1 BUN/Creatinine Ratio 35.5 Random Glucose 122 mg/dl Calcium Level 8.4 mg/dl Total Bilirubin 0.6 mg/dl Aspartate Amino Transf (AST/SGOT) 14 U/L Alanine Aminotransferase (ALT/SGPT) 33 U/L Alkaline Phosphatase 102 U/L Total Protein 6.8 gm/dl Albumin 1.6 gm/dl Globulin 5.2 gm/dl Albumin/Globulin Ratio 0.3 Erythrocyte Sedimentation Rate 90 mm/hr Prothrombin Time 69.5 SECONDS Prothromb Time International Ratio 6.9 Activated Partial Thromboplast Time 79.4 SECONDS Partial Thromboplastin Ratio 3.1 C-Reactive Protein 35.20 mg/dl Procalcitonin 2.43 ng/ml Bedside Troponin I < 0.030 ng/ml Bedside Hemoglobin 9.2 g/dl Bedside Hematocrit 27 % Bedside Sodium 134 mEq/L Bedside Potassium 6.5 mEq/L Bedside Chloride 105 mEq/L Bedside Total CO2 21 mEq/l Bedside Blood Urea Nitrogen 60 mg/dl Bedside Creatinine 2.0 mg/dl Bedside Glucose (other) 120 mg/dl Bedside Ionized Calcium ([place]) 0.98 mmol/l Test 04/30/18 16:38 04/30/18 18:38 04/30/18 21:04 05/01/18 02:03 Sodium Level 133 mmol/L 134 mmol/L Potassium Level 6.2 mmol/L 6.6 mmol/L 5.6 mmol/L Chloride Level 105 mmol/L 106 mmol/L Carbon Dioxide Level 22 mmol/L 20 mmol/L Anion Gap 6.0 mmol/L 8.0 mmol/L Blood Urea Nitrogen 71 mg/dl 69 mg/dl Creatinine 1.97 mg/dl 2.03 mg/dl Est Creatinine Clear Calc Drug Dose 34.6 ml/min 33.6 ml/min Estimated GFR () 36.9 35.6 Estimated GFR (Non- 31.8 30.7 BUN/Creatinine Ratio 36.1 34.2 Random Glucose 215 mg/dl 138 mg/dl Calcium Level 9.2 mg/dl 9.1 mg/dl Phosphorus Level 4.0 mg/dl Magnesium Level 2.5 mg/dl Prealbumin 13.9 mg/dl Bedside Glucose 107 mg/dl Test 05/01/18 06:06 05/01/18 09:49 Sodium Level 135 mmol/L Potassium Level 5.5 mmol/L Chloride Level 108 mmol/L Carbon Dioxide Level 21 mmol/L Anion Gap 6.0 mmol/L Blood Urea Nitrogen 67 mg/dl Creatinine 2.11 mg/dl Est Creatinine Clear Calc Drug Dose 32.3 ml/min Estimated GFR () 34.0 Estimated GFR (Non- 29.3 BUN/Creatinine Ratio 31.9 Random Glucose 180 mg/dl Calcium Level 8.3 mg/dl Phosphorus Level 5.0 mg/dl Magnesium Level 2.5 mg/dl Random Vancomycin Level 18.0 mcg/ml Prothrombin Time 11.5 SECONDS Prothromb Time International Ratio 1.1 Impression (1) Acute kidney injury (2) Chronic kidney disease, stage III (moderate) (3) Hypertension (4) Hyperkalemia (5) Right lower lobe pneumonia (6) Rheumatoid arthritis Recommendations ACUTE KIDNEY INJURY: -- Hold Lisinopril -- Provide gentle hydration w/ 0.9 NS -- Patient is nonoliguric. Serum Potassium is trending down -- Will order urinalysis and renal US -- Monitor serial PRP CHRONIC KIDNEY DISEASE: -- Baseline creatinine 1.5 (2017 outpatient records) HYPERTENSION: -- Blood pressure is relatively low at this time. Hold JUAN inhibitor ID: -- On empiric IV Zosyn w/ dosing as per pharmacy -- Recommend holding Vancomycin unless MRSA +
[2018-05-01] MEDS ORDERED: NURSING VERBAL MED ORDER ONE (12:45)
[2018-05-01] MEDS ORDERED: SOD PHOSPHATE/SOD BIPHOSPHATE ENEMA 132 ML BTL PR STA (12:55)
[2018-05-01] MEDS ORDERED: BISACODYL 10 MG SUPP PR STA (12:55)
[2018-05-01] MEDS ORDERED: SOD PHOSPHATE/SOD BIPHOSPHATE ENEMA 132 ML BTL PR PRN (13:00)
[2018-05-01] MEDS ORDERED: BISACODYL 10 MG SUPP PR PRN (13:00)
--- NOTE | 2018-05-01 13:00 | Pharmacy Progress Note ---
Pharmacy Abx Dose Short Note Date of Service May 01, 2018. Assessment & Plan Item Value Date Time Random Vancomycin Level 18.0 mcg/ml 05/01/18 0606 Assessment 77 year old male receiving Vancomycin and Zosyn for treatment of pneumonia Day # 2 of antimicrobial therapy. Blood culture shows Gram + cocci Plan Vancomycin * Random level drawn at 0600 with a level of 18.0 mcg/mL- this was 10 hours after the initial dose * Patient's estimated Pharmacokinetics was ke=0.038 and t1/2=21 hours, but after assessing the random level this morning, the patient seems to have a half life closer to 8 hours * Based upon the random level of 18 mcg/mL, dose at 1250 mg IV every 12 hours * Goal trough level for Pneumonia : 15 to 20 mcg/mL * Trough level ordered for: 05/02/18 at 0930 Pharmacy will continue to follow and will adjust dose/frequency as necessary. Thank you.
--- NOTE | 2018-05-01 13:14 | Progress Note ---
Subjective Date of Service: May 01, 2018. Subjective Pt evaluation today including: conversation w/ patient, conversation w/ family , physical exam, chart review, lab review, review of studies, conversation w/ wardrobe consultant, review of inpatient medication list Still feeling tired, right knee pain, no bowel movement yet, generalized weakness, blood culture 2 out of 2 positive gram positive Problem List Medical Problems: (1) Acute right MCA stroke Status: Acute (2) Aneurysm, cerebral, nonruptured Status: Acute (3) CHI (closed head injury) Status: Acute (4) Chronic anemia Status: Acute (5) Chronic kidney disease Status: Acute (6) Chronic renal failure Status: Acute (7) Hyperkalemia Status: Acute (8) Hypoxemia Status: Acute (9) Pulmonary mass Status: Acute (10) Rheumatoid arthritis Status: Acute (11) Right lower lobe pneumonia Status: Acute (12) Scalp hematoma Status: Acute (13) Scalp laceration Status: Acute (14) Supratherapeutic INR Status: Acute Review of Systems Constitutional: + weakness, + fatigue, No fever, No chills, No sweats, No weight loss, No problem reported Eyes: No worsening of vision, No eye pain, No redness, No discharge, No diplopia ENT: No hearing loss, No unusual epistaxis, No nasal symptoms, No sore throat, No tinnitus, No dental problems, No trouble swallowing Respiratory: + cough, No sputum, No wheezing, No shortness of breath, No dyspnea on exertion, No dyspnea at rest, No hemoptysis Cardiac: No chest pain, No orthopnea, No PND, No edema, No claudication, No palpitations Abdomen: + constipation, No pain, No nausea, No vomiting, No diarrhea Musculoskeletal: + joint pain, No muscle pain, No swelling, No calf pain Male : No dysuria, No urinary frequency, No incontinence, No nocturia more than once/night, No slowing stream, No hematuria Neurologic: No memory loss, No paralysis, No weakness, No numbness/tingling, No vertigo, No balance problems Psychiatric: No depression symptoms, No anhedonism, No anxiety, No insomnia, No substance abuse Heme: No abnormal bleeding/bruising, No clotting problems, No swollen lymph nodes, No night sweats Endo: No fatigue, No excessive thirst, No excessive urination Skin: + problem reported (In bilateral elbow superficial skin breakdown no local signs of infection), No rash, No itch, No new/changing skin lesions, No color change, No bleeding Objective Vital Signs Date Time Temp Pulse Resp B/P (MAP) Pulse Ox O2 Delivery O2 Flow Rate FiO2 05/01/18 11:51 36.7 96 18 113/73 (86) 91 Nasal Cannula 05/01/18 11:11 103 20 93 Nasal Cannula 3.0 05/01/18 08:00 Nasal Cannula 2.0 05/01/18 07:59 37.1 102 18 135/88 (104) 97 Nasal Cannula 05/01/18 06:53 100 20 95 Nasal Cannula 3.0 05/01/18 03:23 37.0 112 18 112/72 (85) 93 Nasal Cannula 3.0 04/30/18 23:30 37.5 121 22 134/74 (94) 91 Nasal Cannula 3.0 04/30/18 20:00 Nasal Cannula 2.0 04/30/18 19:55 37.3 119 21 103/65 (78) 91 Nasal Cannula 2.0 04/30/18 18:55 118 22 90 Nasal Cannula 2.0 04/30/18 18:00 Nasal Cannula 2.0 04/30/18 18:00 37.5 118 20 128/69 (88) 93 Nasal Cannula 2.0 04/30/18 17:33 112 18 121/74 93 04/30/18 17:28 115 20 91 04/30/18 17:28 115 20 91 04/30/18 17:16 121/74 04/30/18 17:16 121/74 04/30/18 17:13 112 19 93 04/30/18 17:06 90 Nasal Cannula 2.0 04/30/18 17:01 110/83 04/30/18 17:01 110/83 04/30/18 16:58 121 23 90 04/30/18 16:58 121 23 90 04/30/18 16:53 123 22 90 04/30/18 16:47 104/ 04/30/18 16:38 121 17 90 04/30/18 16:31 107/78 04/30/18 16:23 115 20 96 04/30/18 16:16 116/102 04/30/18 16:08 111 22 95 04/30/18 16:05 108/72 04/30/18 15:08 106 18 93 04/30/18 15:03 106 18 93 Nasal Cannula 2.0 04/30/18 15:02 103 18 93 Nasal Cannula 2.0 04/30/18 15:01 104 22 98/65 89 Room Air 04/30/18 15:01 98/65 04/30/18 15:00 105 18 91 04/30/18 15:00 108 19 98/65 88 Room Air 04/30/18 14:59 120/72 04/30/18 14:52 110 21 91 Nasal Cannula 2.0 04/30/18 14:37 108 04/30/18 14:33 108 19 107/68 95 Nasal Cannula 2.0 04/30/18 14:33 107/68 Physical Exam General Appearance: WD/WN, no apparent distress, + pertinent finding (Looks tired,) Eyes: normal inspection, PERRL, EOMI, sclerae normal ENT: normal ENT inspection, hearing grossly normal, pharynx normal Neck: supple, no adenopathy, thyroid normal, no JVD, no carotid bruits, trachea midline Respiratory/Chest: chest non-tender, normal breath sounds, no respiratory distress, no accessory muscle use, + decreased breath sounds Cardiovascular: regular rate, rhythm, no edema, no gallop, no JVD, no murmur Abdomen: normal bowel sounds, non tender, soft, no organomegaly, no pulsatile mass Extremities: non-tender, normal inspection, no pedal edema, no calf tenderness , normal capillary refill, pelvis stable, + pertinent finding (Right knee mild tender, no swelling, no erythema, no limited range of motion, no fluid signs) Neurologic/Psychiatric: partner management consultant II-XII nml as tested, no motor/sensory deficits, alert, normal mood/affect, oriented x 3, + abnormal cerebellar tests Skin: normal color, warm/dry, no rash Lymphatic: no adenopathy Laboratory Results Last 24 Hours Test 04/30/18 14:27 04/30/18 14:31 04/30/18 14:42 04/30/18 15:56 White Blood Count 16.13 K/uL Red Blood Count 3.39 M/uL Hemoglobin 9.6 g/dL Hematocrit 29.8 % Mean Corpuscular Volume 87.9 fL Mean Corpuscular Hemoglobin 28.3 pg Mean Corpuscular Hemoglobin Concent 32.2 g/dl Platelet Count 362 K/uL Mean Platelet Volume 9.4 fL Neutrophils (%) (Auto) 87.2 % Lymphocytes (%) (Auto) 5.4 % Monocytes (%) (Auto) 2.2 % Eosinophils (%) (Auto) 0.1 % Basophils (%) (Auto) 0.2 % Neutrophils # (Auto) 14.08 K/uL Lymphocytes # (Auto) 0.87 K/uL Monocytes # (Auto) 0.35 K/uL Eosinophils # (Auto) 0.01 K/uL Basophils # (Auto) 0.03 K/uL RDW Standard Deviation 54.4 fL RDW Coefficient of Variation 16.9 % Immature Granulocyte % (Auto) 4.9 % Immature Granulocyte # (Auto) 0.79 K/uL Ovalocytes 1+ Echinocytes 1+ Sodium Level 132 mmol/L Potassium Level 6.4 mmol/L Chloride Level 104 mmol/L Carbon Dioxide Level 20 mmol/L Anion Gap 8.0 mmol/L 16.0 mmol/L Blood Urea Nitrogen 71 mg/dl Creatinine 2.01 mg/dl Est Creatinine Clear Calc Drug Dose 33.9 ml/min Estimated GFR () 36.0 Estimated GFR (Non- 31.1 BUN/Creatinine Ratio 35.5 Random Glucose 122 mg/dl Calcium Level 8.4 mg/dl Total Bilirubin 0.6 mg/dl Aspartate Amino Transf (AST/SGOT) 14 U/L Alanine Aminotransferase (ALT/SGPT) 33 U/L Alkaline Phosphatase 102 U/L Total Protein 6.8 gm/dl Albumin 1.6 gm/dl Globulin 5.2 gm/dl Albumin/Globulin Ratio 0.3 Erythrocyte Sedimentation Rate 90 mm/hr Prothrombin Time 69.5 SECONDS Prothromb Time International Ratio 6.9 Activated Partial Thromboplast Time 79.4 SECONDS Partial Thromboplastin Ratio 3.1 C-Reactive Protein 35.20 mg/dl Procalcitonin 2.43 ng/ml Bedside Troponin I < 0.030 ng/ml Bedside Hemoglobin 9.2 g/dl Bedside Hematocrit 27 % Bedside Sodium 134 mEq/L Bedside Potassium 6.5 mEq/L Bedside Chloride 105 mEq/L Bedside Total CO2 21 mEq/l Bedside Blood Urea Nitrogen 60 mg/dl Bedside Creatinine 2.0 mg/dl Bedside Glucose (other) 120 mg/dl Bedside Ionized Calcium ([place]) 0.98 mmol/l Test 04/30/18 16:38 8/2/18 18:38 04/30/18 21:04 05/01/18 02:03 Sodium Level 133 mmol/L 134 mmol/L Potassium Level 6.2 mmol/L 6.6 mmol/L 5.6 mmol/L Chloride Level 105 mmol/L 106 mmol/L Carbon Dioxide Level 22 mmol/L 20 mmol/L Anion Gap 6.0 mmol/L 8.0 mmol/L Blood Urea Nitrogen 71 mg/dl 69 mg/dl Creatinine 1.97 mg/dl 2.03 mg/dl Est Creatinine Clear Calc Drug Dose 34.6 ml/min 33.6 ml/min Estimated GFR () 36.9 35.6 Estimated GFR (Non- 31.8 30.7 BUN/Creatinine Ratio 36.1 34.2 Random Glucose 215 mg/dl 138 mg/dl Calcium Level 9.2 mg/dl 9.1 mg/dl Phosphorus Level 4.0 mg/dl Magnesium Level 2.5 mg/dl Prealbumin 13.9 mg/dl Bedside Glucose 107 mg/dl Test 05/01/18 06:06 05/01/18 09:49 05/01/18 12:20 05/01/18 12:55 Sodium Level 135 mmol/L Potassium Level 5.5 mmol/L Chloride Level 108 mmol/L Carbon Dioxide Level 21 mmol/L Anion Gap 6.0 mmol/L Blood Urea Nitrogen 67 mg/dl Creatinine 2.11 mg/dl Est Creatinine Clear Calc Drug Dose 32.3 ml/min Estimated GFR () 34.0 Estimated GFR (Non- 29.3 BUN/Creatinine Ratio 31.9 Random Glucose 180 mg/dl Calcium Level 8.3 mg/dl Phosphorus Level 5.0 mg/dl Magnesium Level 2.5 mg/dl Random Vancomycin Level 18.0 mcg/ml Prothrombin Time 11.5 SECONDS Prothromb Time International Ratio 1.1 Urine Color YELLOW Urine Appearance CLEAR Urine pH 5.0 Urine Specific Brogan 1.019 Urine Protein NEG Urine Glucose (UA) NEG Urine Ketones NEG Urine Occult Blood NEG Urine Nitrite NEG Urine Bilirubin NEG Urine Urobilinogen NEG Urine Leukocyte Esterase NEG Assessment and Plan 77-year-old white male admitted on April 30, 2018 with pneumonia possible sepsis and severe hyperkalemia, Possible hospital-acquired pneumonia patient stating [facility] and was discharged on April 05, 2018 Gram-positive bacteremia, 2 out of 2, possible from pneumonia Severe hyperkalemia on admission, improved after nebulizer treatment insulin, however patient has no bowel movement since admission Acute on chronic kidney disease stage III. Mild tachycardia. Hypertherapeutic INR is 6.9 upon admission, got 1 dose of vitamin K, and this morning is 1.1, restart oral Coumadin History of pulmonary embolism. History of atrial fibrillation, on Coumadin. Currently is sinus tachycardia, restarted Coumadin, do not feel the need to have bridging for anticoagulation Right knee pain, no obvious signs of infection, check x-ray, orthopedic consultation, pain control, topical Lidoderm ointment application hx of Rheumatoid arthritis, is on oral steroid prior to admission, continue hydrocortisone IV for now Severe constipation, will order suppository and enema cont tele Follow-up hyperkalemia, as ordered lab in 6000 Because of gram-positive bacteremia, likely from lung, continue vancomycin and discontinue Zosyn , infectious disease consultation requested Continue hydrocortisone IV abnormal renal function, retroperitoneal ultrasound for kidney, avoid renal offensive medication hydralazine p.r.n. for accelerated hypertension. Gastrointestinal and deep vein thrombosis prophylaxis is covered. Discussed with patient and family about her condition and care plan, multiple medical conditions prognosis is guarded Continued [facility] stay due to: multiple IV medications needed Discharge planning: uncertain
[2018-05-01] MEDS ORDERED: LIDOCAINE 4% CREAM 15 GM TUBE EXT PRN (13:15)
[2018-05-01] MEDS ORDERED: OXYCODONE HCL IR 5 MG TAB (IMMEDIATE RELEASE) PO PRN (13:15)
--- NOTE | 2018-05-01 13:46 | DIAGNOSTIC IMAGING REPORT ---
EXAMINATION: RENAL ULTRASOUND CLINICAL HISTORY: Chronic renal disease COMPARISON STUDY: CT scan performed March 16, 2018 FINDINGS: The right kidney measures 9.2 cm. The left kidney measures 10 cm. There is no evidence of hydronephrosis. There are 2 hypoechoic lower pole right renal lesions consistent with the patient's known cysts. The largest measures 27 mm. The left cyst described in the prior CT scan was not visualized. No bladder masses were visualized. Neither ureteral jet was identified. IMPRESSION : 1. Symmetric renal size and cortical thickness 2. No evidence of hydronephrosis 3. Right renal cysts Electronically signed by: Noe Shepard M.D. 05/01/2018 1:45 PM Dictated Date/Time: 05/01/2018 1:43 PM
--- NOTE | 2018-05-01 13:47 | DIAGNOSTIC IMAGING REPORT ---
R KNEE 3 VIEWS CLINICAL HISTORY: Right knee pain. History of trauma. COMPARISON: 11/14/2016 DISCUSSION: There are advanced osteoarthritic changes with marked medial and lateral joint space narrowing. Findings are progressive. There are no acute fractures. IMPRESSION: 1. No acute fractures 2. Progressive advanced osteoarthritic change Electronically signed by: Noe Shepard M.D. 05/01/2018 1:46 PM Dictated Date/Time: 05/01/2018 1:45 PM
[2018-05-01] MEDS: OXYCODONE HCL IR 5 MG TAB (IMMEDIATE RELEASE) PO PRN (14:15)
[2018-05-01 14:39] LABS: CREATININE 2.13 mg/dl (0.60-1.40); PHOSPHORUS 4.6 mg/dl (2.5-4.9); POTASSIUM 5.1 mmol/L (3.5-5.1)
--- NOTE | 2018-05-01 15:08 | Progress Note ---
Progress Note Date of Service May 01, 2018. Progress Note ID Consult Dictated #[id number] A/P: 1. GPC sepsis 2. CAP 3. Leukocytosis -Continue vanco -Follow cultures, will repeat -Suggest echo -will follow, thank you
--- NOTE | 2018-05-01 15:31 | INFECT. DISEASE CONSULTATION ---
DATE OF CONSULTATION: 05/01/2018 HISTORY OF PRESENT ILLNESS: This is a 77-year-old gentleman who was admitted to the hospital with a fever and shortness of breath. He does have a history of rheumatoid arthritis and is on medication for this. He is on chronic prednisone as well. In the ER, he did undergo a significant infectious workup and was found to have a right lower lobe infiltrate on x-ray. He was started on empiric antibiotics. He currently is on vancomycin. Blood cultures in the ER were obtained and are growing gram-positive cocci. The patient has been afebrile since admission. His sed rate is elevated at 90. His creatinine is elevated at 2.1. His white blood cell count is elevated at 16. He also was found to be hyperkalemic. His procalcitonin is elevated. No repeat blood cultures have been obtained. He is tolerating antibiotics well. He does have a nonproductive cough. He denies any purulent sputum or hemoptysis. He denies any pleuritic chest pain. He is currently on nasal cannula oxygen and does not normally need this at home. He denies any shortness of breath or wheezing. He denies any abdominal pain, nausea, vomiting or diarrhea. His family is present during my examination. REVIEW OF SYSTEMS: His remaining review of systems is reviewed and is unremarkable. PAST MEDICAL HISTORY: Significant for rheumatoid arthritis, history of CVA, hypertension, history of blood clots, recently diagnosed lung tumors which are in the process of being worked up, chronic kidney disease, hyperkalemia, history of PE and high cholesterol. PAST SURGICAL HISTORY: Unremarkable. FAMILY HISTORY: Noncontributory. SOCIAL HISTORY: Significant for history of tobacco use. He denies any alcohol or drug use. ALLERGIES: He has no known drug allergies. MEDICATIONS: Roxicodone, lidocaine cream, Dulcolax, Fleet enemas, Coumadin, vancomycin, Norvasc, Pravachol, Arava, MiraLax, Protonix, hydrocortisone, Colace, DuoNebs, morphine, hydralazine, Tylenol, Maalox, milk of magnesia, Ambien, Zofran, MiraLax. PHYSICAL EXAMINATION: VITAL SIGNS: He is afebrile, pulse 102, respiratory rate 18, blood pressure 113/73, oxygen saturation is 93% on 2 liters nasal cannula. GENERAL: He is awake, alert and oriented x3. He is in no acute distress. HEENT: Mucous membranes are moist. Extraocular muscles are intact. HEART: Regular. LUNGS: Decreased bilaterally. ABDOMEN: Soft, nontender, nondistended. There is no edema. SKIN: Without rash. LABORATORY STUDIES: CBC in the ER: White blood cell count 16.1, hemoglobin 9.6, platelets 362. Sed rate 90. Chemistry panel: Sodium 137, potassium 5.1, chloride 109, bicarbonate 20, BUN 68, creatinine 2.1, glucose 211. UA negative. Vancomycin level today is 18. Blood cultures from the 2nd are growing gram-positive cocci in 2/2 sets. MRSA swab is negative. Chest x-ray as above. A lower extremity ultrasound was unremarkable. ASSESSMENT AND PLAN: 1. Gram-positive septicemia. 2. Community acquired pneumonia. He will remain on antibiotics. Repeat blood cultures will be obtained. Final recommendations will be made when sensitivities are returned. An echocardiogram should be done to rule out endocarditis. We will follow along with you. Thank you for this consultation.
[2018-05-01] MEDS ORDERED: ETHYL CHLORIDE AER SPR 100 ML CAN EXT ONE (16:00)
--- NOTE | 2018-05-01 17:48 | ORTHOPEDIC CONSULTATION ---
DATE OF CONSULTATION: 05/01/2018 HISTORY OF PRESENT ILLNESS: This is a 77-year-old gentleman seen at the request of Dr. Jai Brooks for right knee pain superimposed on a new diagnosis of bacteremia/septicemia. Patient has persistent knee pain on the right side for approximately 4-5 days, pain 9/10. He admitted to riding his 4-ashton for several miles and has had a history of chronic knee pain. He has a history of rheumatoid arthritis and osteoarthritis in the right knee, and he has been under the care of Dr. Knox and Dr. Machuca. He is on oral prednisone. He also had right wrist pain. He was taking methotrexate at some point, but he was taken off it. He had dyspnea on exertion for 4-5 days with chest congestion, low grade fever, poor appetite, increased weakness, and then presented to [facility]. He was admitted to the hospital for multiple diagnoses including pneumonia, hyperkalemia, chronic kidney disease stage III, mild tachycardia among other diagnoses. He states that his knee pain has not significantly worsened now compared to before. He denies any fevers or chills. No nausea, vomiting, or chest pain. Right knee pain is moderate with motion, nonpainful at rest. PAST MEDICAL HISTORY: Hypertension, rheumatoid arthritis, DJD, DVT, on chronic Coumadin, degenerative arthritis, possible lung neoplasm, CVA with residual left weakness, chronic atrial fibrillation, dyslipidemia. PAST SURGICAL HISTORY: Pulmonary embolization. ALLERGIES: No known drug allergies. MEDICATIONS: Amlodipine 10 mg p.o. q.a.m., Arava 20 mg p.o. q.a.m., lisinopril 20 mg p.o. q.a.m., Pravachol 10 mg p.o. q.a.m., bicarbonate 650 mg p.o. t.i.d., warfarin 3 mg p.o. every 9 p.m., Colace 1 tablet p.o. b.i.d. p.r.n., prednisone 10 mg p.o. q.a.m., Tylenol 1000 mg p.o. q.8 h. p.r.n. SOCIAL HISTORY: Former smoker, quit 2-3 years ago. Lives alone. He is . 2 children. He is retired. PHYSICAL EXAMINATION: Exam of the right knee demonstrates skin warm, dry, and intact. Capillary refill less than 2 seconds. Dorsalis pedis and posterior tibial pulses are palpable. He has mild effusion of the right knee. He has diffuse tenderness to palpation of the right knee. He has pain with passive flexion and passive extension. Ligamentous exam is stable. No instability. Range of motion is 0 to approximately 45 degrees with discomfort in the right knee. IMAGING: Radiographs of the knee demonstrate severe degenerative changes with symmetric joint space loss, both medially and laterally consistent with rheumatoid arthritis, early marginal osteophytes, and subchondral sclerosis is noted. No significant effusion is noted. No obvious fractures. LABORATORY DATA: Reviewed. IMPRESSION: Right knee pain, mild right knee effusion, rheumatoid arthritis, degenerative joint disease, bacteremia/septicemia, possible septic arthritis, right knee. RECOMMENDATIONS: After examination and discussion with patient, explained to the patient that in the face of gram-positive cocci bacteremia with no clear identifiable source, his best interest is to aspirate the knee. Therefore, recommended aspiration of the right knee and then evaluation of fluid for specimen, aerobic and anaerobic, Gram stain, evaluation with cell count with manual differential, Lyme titer, and assessment for crystals. PROCEDURE NOTE: After obtaining verbal consent from the patient, sterilely prepped the right knee with Betadine and alcohol and using ethyl chloride as a skin refrigerant. Aspirated approximately 6 mL of purulent appearing thickened yellowish aspirate from the right knee using an 18-gauge needle and 60 mL syringe. A sterile Band-Aid was applied to the site. Patient tolerated the procedure well. The specimen was then sent to laboratory for cell count with manual differential, aerobic, anaerobic, Gram stain, sampling, assessment for crystal analysis, and Lyme titer. Patient will be made n.p.o. for arthroscopic irrigation and debridement of the right knee to be performed tomorrow. Discussed the care plan with the nurse at bedside and booked the patient with surgical scheduling. Thank you for the opportunity to consult in the care of this patient.
[2018-05-02] VITALS (12 sets, daily range): BP systolic 119–168; BP diastolic 69–92; PULSE 80–105; TEMP 36.6–36.8; O2SAT 91–96
[2018-05-02] MEDS: HYDROCORTISONE IV 100 MG in SYRINGE 0 ML IV SCH (05:04)
[2018-05-02] MEDS: SODIUM CHLORIDE 0.9% 1000ML 1,000 ML IV SCH ×4 (05:06→23:09)
[2018-05-02 07:00] LABS: INR 1.4 (0.9-1.1)
[2018-05-02] MEDS: ALBUT/IPRATROP 3MG/0.5MG NEB 3 ML VIAL INH SCH ×4 (07:03→19:05)
[2018-05-02 07:33] LABS: CALCIUM 8.2 mg/dl (8.5-10.1); CREATININE 1.72 mg/dl (0.60-1.40); POTASSIUM 3.8 mmol/L (3.5-5.1)
[2018-05-02 07:36] LABS: PHOSPHORUS 5.1 mg/dl (2.5-4.9)
[2018-05-02] MEDS: DOCUSATE SODIUM 100 MG CAP PO SCH ×2 (07:44→20:47)
[2018-05-02] MEDS: LEFLUNOMIDE 10 MG TAB PO SCH (07:44)
[2018-05-02] MEDS: POLYETHYLENE (MIRALAX) 17 GM PACK PO SCH (07:44)
[2018-05-02] MEDS: SODIUM BICARBONATE 650 MG TAB PO SCH ×3 (07:45→20:49)
[2018-05-02] MEDS: PANTOprazole SOD 40 MG TAB PO SCH (07:45)
[2018-05-02] MEDS: AMLODIPINE BESYLATE 5 MG TAB PO SCH (07:45)
[2018-05-02] MEDS: PRAVASTATIN SOD 10 MG TAB PO SCH (07:45)
[2018-05-02] MEDS ORDERED: CONSULT PHARMACY STA (08:02)
[2018-05-02 08:28] LABS: HEMATOCRIT 23.6 % (42-52); HEMOGLOBIN 7.5 g/dL (14.0-18.0); MEAN CELL VOLUME 88.4 fL (80-100); MEAN CORPUSCULAR HEMOGLOBIN 28.1 pg (25-34); MEAN CORPUSCULAR HGB CONC 31.8 g/dl (32-36); MEAN PLATELET VOLUME 9.5 fL (7.4-10.4); PLATELET COUNT 332 K/uL (130-400); RED CELL DISTRIBUTION WIDTH CV 16.6 % (11.5-14.5); RED CELL DISTRIBUTION WIDTH SD 53.3 fL (36.4-46.3); WHITE BLOOD COUNT 18.21 K/uL (4.8-10.8)
[2018-05-02] MEDS ORDERED: LEVOFLOXACIN CONSULT ACTIVE PRN (08:30)
[2018-05-02] MEDS: METOPROLOL TARTRATE 25 MG TAB PO SCH ×2 (08:45→20:48)
[2018-05-02] MEDS ORDERED: LEVOFLOXACIN 750MG / D5W IV SCH (09:00)
[2018-05-02 09:03] LABS: BASO % 0.2 %; BASO ABS # 0.04 K/uL (0-0.2); IG# 1.09 K/uL (0.00-0.02); LYMPH % 2.8 %; LYMPH ABS # 0.51 K/uL (1.2-3.4); MONO % 4.6 %; MONO ABS # 0.83 K/uL (0.11-0.59); NEUT % 86.4 %; NEUT ABS # 15.74 K/uL (1.4-6.5)
[2018-05-02] MEDS ORDERED: DEXAMETHASONE SOD INJ 4 MG/ML VIAL ONE (09:04)
[2018-05-02] MEDS ORDERED: ONDANSETRON INJ 2 MG/ML 2 ML VIAL ONE (09:04)
[2018-05-02] MEDS ORDERED: PROPOFOL IV EMULSION 10 MG/ML 20 ML VIAL ONE (09:04)
[2018-05-02] MEDS ORDERED: MIDAZOLAM HCL 1 MG/ML 2ML VIAL ONE (09:04)
[2018-05-02] MEDS ORDERED: FENTANYL CITRATE INJ 50 MCG/1 ML 2 ML VIAL ONE ×2 (09:04→12:11)
[2018-05-02] MEDS ORDERED: LIDOCAINE HCL 2% 2 ML VIAL (20MG/ML) ONE (09:04)
[2018-05-02] MEDS ORDERED: ATROPINE SULFATE 0.1 MG/ML 5ML SYR IV PRN (09:15)
[2018-05-02] MEDS ORDERED: EpHEDrine SULFATE INJ 50 MG/ML AMP IV PRN (09:15)
[2018-05-02] MEDS ORDERED: ONDANSETRON INJ 2 MG/ML 2 ML VIAL IV PRN (09:15)
[2018-05-02] MEDS ORDERED: VANCOMYCIN TROUGH ONE (09:30)
[2018-05-02] MEDS ORDERED: BACITRACIN 50000 UNIT VIAL ONE ×3 (09:47→11:31)
--- NOTE | 2018-05-02 10:37 | History & Physical Bridge Note ---
H&P Re-Evaluation Bridge Note: I have examined the patient, reviewed the History & Physical and in the interval since the performance of the History & Physical I have noted the following changes of clinical significance: No changes noted
--- NOTE | 2018-05-02 10:40 | Pharmacy Progress Note ---
Pharmacy Abx Dose Short Note Date of Service May 02, 2018. Assessment & Plan Assessment * 77 year old male receiving VANCOMYCIN + LEVOFLOXACIN for treatment of CAP, staph aureus bacteremia, possible endocarditis, in the setting of immunocompromise (DMARD + steroid use prior to admission for RA) * Day # 3 of antimicrobial therapy * Staph aureus in both sets of BLCX's drawn 04/30, sensitivities pending, repeat BLCX's from 05/01 are also growing GPC * CXR: read as RLL infiltrate * Renal fxn improving SCr 2.11 -->1.72, U.O. 1825cc last 24 hrs * Pt remains tachycardic but stable, no hypotension noted, sat well on 2L NC Plan Vancomycin * Trough level of 24.6 mcg/mL is supratherapeutic. This level was obtained after only 2 maintenance doses and is not reflective of steady-state. Prior doses hung according to schedule * Change to 1250 mg (12.7mg/kg) IV every 18 hours * Goal trough level for bacteremia/pulm infxn : 15 to 20 mcg/mL * Trough level ordered for: 05/04/18 w/ 3rd dose of new regimen Levofloxacin * Added today by hospitalist * eCrCl < 50cc/min, therefore continue 750mg IV Q 48 hrs for pulm indication * QTc 413 Pharmacy will continue to follow and will adjust dose/frequency as necessary. Thank you.
[2018-05-02] MEDS ORDERED: BUPIVACAINE/EPINEPHRINE 0.5% MPF 1:200,000 30 ML VIAL ONE (10:43)
--- NOTE | 2018-05-02 11:38 | Nephrology Progress Note ---
Nephrology Progress Note Date of Service May 02, 2018. Chief Complaint GIANCARLO / CKD Subjective Mr. Davis was seen & examined in his hospital room this morning. He reports that his R knee was painful yesterday. He underwent joint aspiration and purulent fluid was obtained. He is scheduled for Orthopedic wash out of his joint and echocardiogram today. Mr. Davis relates a h/o a lung nodule. He was to be seen at [facility] soon but now requests Thoracic Surgery evaluation during this hospitalization. Review of Systems Constitutional: No fever Cardiovascular: No chest pain Respiratory: No dyspnea at rest Abdomen: No pain, No nausea, No vomiting Extremities: + leg edema Musculoskeletal: + joint pain (R knee is swollen and painful) A complete review of systems was performed. Pertinent positives are noted above. All other systems are negative. Vital Signs Last 8 Hrs Date Time Temp Pulse Resp B/P (MAP) Pulse Ox O2 Delivery O2 Flow Rate FiO2 05/02/18 08:00 95 Room Air 05/02/18 07:47 36.6 101 18 167/83 (111) 94 Nasal Cannula 2.0 05/02/18 07:03 101 18 94 Nasal Cannula 2.0 05/02/18 04:11 36.7 105 18 168/79 (108) 93 Nasal Cannula 2.5 Last Recorded Weight Weight (Kilograms): 98.500 Physical Exam General Appearance: no apparent distress Head: atraumatic Eyes: PERRL, EOMI Neck: no adenopathy Respiratory/Chest: lungs clear, no respiratory distress Cardiovascular: regular rate, rhythm Abdomen/GI: normal bowel sounds, non tender, soft Extremities/Musculoskelatal: no calf tenderness, + pertinent finding (R knee is swollen and painful to palpation) Neurologic/Psych: alert, oriented x 3 Family History Cancer Diabetes mellitus Heart disease Hypertension Lung disease Negative for CKD / ESRD Social History Marital Status: Occupation: retired . Retired. Former smoker. Laboratory Results Past 24 Hours 05/02/18 06:32 Red Blood Count 2.67, Mean Corpuscular Volume 88.4, Mean Corpuscular Hemoglobin 28.1, Mean Corpuscular Hemoglobin Concent 31.8, Mean Platelet Volume 9.5, Neutrophils (%) (Auto) 86.4, Lymphocytes (%) (Auto) 2.8, Monocytes (%) (Auto) 4.6, Eosinophils (%) (Auto) 0.0, Basophils (%) (Auto) 0.2, Neutrophils # (Auto) 15.74, Lymphocytes # (Auto) 0.51, Monocytes # (Auto) 0.83, Eosinophils # (Auto) 0.00, Basophils # (Auto) 0.04 05/01/18 14:12 05/02/18 06:32 Test 05/01/18 12:20 05/01/18 14:12 05/01/18 16:15 05/02/18 06:32 Urine Color YELLOW Urine Appearance CLEAR (CLEAR) Urine pH 5.0 (4.5-7.5) Urine Specific Greig 1.019 (1.000-1.030) Urine Protein NEG (NEG) Urine Glucose (UA) NEG (NEG) Urine Ketones NEG (NEG) Urine Occult Blood NEG (NEG) Urine Nitrite NEG (NEG) Urine Bilirubin NEG (NEG) Urine Urobilinogen NEG (NEG) Urine Leukocyte Esterase NEG (NEG) Anion Gap 8.0 mmol/L (3-11) 10.0 mmol/L (3-11) Est Creatinine Clear Calc Drug Dose 32.0 ml/min 40.2 ml/min Estimated GFR () 33.6 43.5 Estimated GFR (Non- 29.0 37.5 BUN/Creatinine Ratio 32.0 (10-20) 39.3 (10-20) Calcium Level 8.0 mg/dl (8.5-10.1) 8.2 mg/dl (8.5-10.1) Phosphorus Level 4.6 mg/dl (2.5-4.9) 5.1 mg/dl (2.5-4.9) Magnesium Level 2.4 mg/dl (1.8-2.4) 2.4 mg/dl (1.8-2.4) Synovial Fluid Source KNEE Synovial Fluid Color PALE YELLOW Synovial Fluid Appearance TURBID Synovial Fluid WBC 3877 /uL (0-200) Synovial Fluid RBC < 3000 /uL Synovial Fluid Polynuclear WBCs % 96.2 % Synovial Fluid Mononuclear WBCs % 3.8 % Synovial Fluid Crystals White Blood Count 18.21 K/uL (4.8-10.8) Red Blood Count 2.67 M/uL (4.7-6.1) Hemoglobin 7.5 g/dL (14.0-18.0) Hematocrit 23.6 % (42-52) Mean Corpuscular Volume 88.4 fL (80-100) Mean Corpuscular Hemoglobin 28.1 pg (25-34) Mean Corpuscular Hemoglobin Concent 31.8 g/dl (32-36) Platelet Count 332 K/uL (130-400) Mean Platelet Volume 9.5 fL (7.4-10.4) Neutrophils (%) (Auto) 86.4 % Lymphocytes (%) (Auto) 2.8 % Monocytes (%) (Auto) 4.6 % Eosinophils (%) (Auto) 0.0 % Basophils (%) (Auto) 0.2 % Neutrophils # (Auto) 15.74 K/uL (1.4-6.5) Lymphocytes # (Auto) 0.51 K/uL (1.2-3.4) Monocytes # (Auto) 0.83 K/uL (0.11-0.59) Eosinophils # (Auto) 0.00 K/uL (0-0.5) Basophils # (Auto) 0.04 K/uL (0-0.2) RDW Standard Deviation 53.3 fL (36.4-46.3) RDW Coefficient of Variation 16.6 % (11.5-14.5) Immature Granulocyte % (Auto) 6.0 % Immature Granulocyte # (Auto) 1.09 K/uL (0.00-0.02) Hypochromasia PRESENT Echinocytes 1+ Prothrombin Time 14.2 SECONDS (9.0-12.0) Prothromb Time International Ratio 1.4 (0.9-1.1) Pro-B-Type Natriuretic Peptide 716 pg/ml (0-1800) Test 05/02/18 09:24 Vancomycin Level Trough 24.6 mcg/ml (SEE COMMENT) Allergies Coded Allergies: No Known Allergies (Unverified , 04/30/18) Medications Current Inpatient Medications Medications (Trade) Dose Ordered Sig/Sascha Route Start Time Stop Time Status Last Admin Dose Admin Sodium Chloride 1,000 ml @ 150 mls/hr Q6H40M IV 04/30/18 16:29 05/30/18 16:28 05/02/18 07:44 150 MLS/HR Acetaminophen (Tylenol Tab) 650 mg Q4H PRN PO 04/30/18 16:30 05/30/18 16:29 Al Hydrox/Mg Hydrox/Simethicone (Maalox Max Susp) 15 ml Q4H PRN PO 04/30/18 16:30 05/30/18 16:29 Magnesium Hydroxide (Milk Of Magnesia Susp) 30 ml Q12H PRN PO 04/30/18 16:30 05/30/18 16:29 Zolpidem Tartrate (Ambien Tab) 5 mg HSZ PRN PO 04/30/18 16:30 05/30/18 16:29 Ondansetron HCl (Zofran Inj) 4 mg Q6H PRN IV 04/30/18 16:30 05/30/18 16:29 Polyethylene (Miralax Powder Packet) 17 gm DAILY PRN PO 04/30/18 16:30 05/30/18 16:29 Vancomycin HCl (Consult) 1 ea UD PRN N/A 04/30/18 16:29 05/30/18 16:28 Amlodipine Besylate (Norvasc Tab) 10 mg QAM PO 05/01/18 09:00 05/31/18 08:59 05/02/18 07:45 10 MG Docusate Sodium (coLACE CAP) 100 mg BID PRN PO 04/30/18 16:45 05/30/18 16:44 Pravastatin Sodium (Pravachol Tab) 10 mg QAM PO 05/01/18 09:00 05/31/18 08:59 05/02/18 07:45 10 MG Leflunomide (Arava) 20 mg QAM PO 05/01/18 09:00 05/31/18 08:59 05/02/18 07:44 20 MG Sodium Bicarbonate (Sodium Bicarbonate Tab) 650 mg TID PO 04/30/18 21:00 05/30/18 20:59 05/02/18 07:45 650 MG Hydralazine HCl (HydrALAZINE INJ) 20 mg Q4 PRN IV. 04/30/18 16:45 05/30/18 16:44 Albuterol/ Ipratropium (Duoneb) 3 ml QIDR INH 04/30/18 20:00 05/30/18 19:59 05/02/18 07:03 3 ML Morphine Sulfate (MoRPHine SULFATE INJ) 4 mg Q6 PRN IV 04/30/18 16:45 05/14/18 16:44 83/18 13:59 4 MG Docusate Sodium (coLACE CAP) 100 mg BID PO 04/30/18 21:00 05/30/18 20:59 05/01/18 21:22 100 MG Polyethylene (Miralax Powder Packet) 17 gm DAILY PO 05/01/18 09:00 05/31/18 08:59 05/01/18 07:50 17 GM Pantoprazole Sodium (Protonix Tab) 40 mg QAM PO 05/01/18 09:00 05/04/18 09:01 05/02/18 07:45 40 MG Bisacodyl (Dulcolax Supp) 10 mg DAILY PRN NE 05/01/18 13:00 05/31/18 12:59 Sodium Biphosphate/ Sodium Phosphate (Fleet Enema) 132 ml DAILY PRN NE 05/01/18 13:00 05/31/18 12:59 05/02/18 05:00 132 ML Lidocaine (AneCream 4%) 1 appln Q12 PRN EXT 05/01/18 13:15 05/31/18 13:14 05/01/18 13:59 1 APPLN Oxycodone HCl (Roxicodone Immediate Rel Tab) `1-2 tabs for pain 1 tab ... Q4H PRN PO 05/01/18 14:00 05/15/18 13:59 05/01/18 14:15 10 MG Metoprolol Tartrate (Lopressor Tab) 12.5 mg BID PO 05/02/18 09:00 06/01/18 08:59 05/02/18 08:45 12.5 MG Hydrocortisone Sodium Succinate 50 mg/Syringe 1 ml @ 4 mls/min Q8 IV 05/02/18 14:00 06/01/18 13:59 Levofloxacin 750 mg/Prmx 150 ml @ 100 mls/hr Q48H IV 05/02/18 09:00 05/09/18 08:59 05/02/18 08:45 100 MLS/HR Levofloxacin (Consult) 1 ea UD PRN N/A 05/02/18 08:30 06/01/18 08:29 Fentanyl Citrate (Fentanyl Inj) 50 mcg Q5M PRN IV 05/02/18 09:15 05/02/18 13:15 Ondansetron HCl (Zofran Inj) 4 mg ONE PRN IV 05/02/18 09:15 05/02/18 13:15 Ephedrine Sulfate (EpHEDrine SULFATE INJ) 5 mg Q5M PRN IV 05/02/18 09:15 05/02/18 13:15 Atropine Sulfate (Atropine Sulfate 0.1mg/ml Inj) 0.5 mg Q1M PRN IV 05/02/18 09:15 05/02/18 13:15 Vancomycin HCl 1250 mg/Sodium Chloride 275 ml @ 125 mls/hr Q18H IV 05/02/18 16:00 05/08/18 09:59 Impression (1) Acute kidney injury (2) Chronic kidney disease, stage III (moderate) (3) Hypertension (4) Hyperkalemia (5) Right lower lobe pneumonia (6) Rheumatoid arthritis Recommendations ACUTE KIDNEY INJURY: -- Continue to hold Lisinopril -- Provide gentle hydration w/ 0.9 NS -- Patient is nonoliguric. -- Urinalysis is negative for blood or protein. Renal US was negative for obstruction -- Monitor serial PRP CHRONIC KIDNEY DISEASE: -- Baseline creatinine 1.5 (2017 outpatient records) HYPERTENSION: -- Blood pressure is acceptable. Will monitor ID: -- On empiric IV Zosyn & Vanco w/ dosing as per pharmacy -- Blood cultures + for Staph Aureus -- R knee washout scheduled for today -- Await TTE results OTHER: -- Will request consultation w/ Dr. Paul to eval lung nodule (Nonemergent - Friday)
--- NOTE | 2018-05-02 12:09 | [facility] Post Operative Brief Note ---
Immediate Operative Summary Operative Date May 02, 2018. Pre-Operative Diagnosis Right knee septic arthritis Post-Operative Diagnosis Right knee septic arthritis, lateral and medial meniscus tears, synovitis, partial anterior cruciate ligament tear Procedure(s) Performed Right Knee Arthroscopic Irrigation and Debridement, partial medial and lateral menisectomy, debridement ACL, synovectomy Surgeon Dr. Bertha Ellison Research Quality Assurance Specialist Surgeon(s) none Estimated Blood Loss 2 cc Findings Consistent with Post-Op Diagnosis Specimens none, as per surgeon, Aspirate collected at bedside 8/3 Drains HV x 2 Anesthesia Type General (with local) Complication(s) none Disposition Accompanied Pt To Recover: no Disposition: Recovery Room / PACU
[2018-05-02] MEDS: FENTANYL CITRATE INJ 50 MCG/1 ML 2 ML VIAL IV PRN ×4 (12:13→12:37)
--- NOTE | 2018-05-02 12:46 | Anesthesiology Progress Note ---
Anesthesia Post Op Note Date & Time May 02, 2018 at 12:46 Vital Signs Vital Signs Past 12 Hours Date Time Temp Pulse Resp B/P (MAP) Pulse Ox O2 Delivery O2 Flow Rate FiO2 05/02/18 12:35 96 15 139/79 96 Nasal Cannula 4 05/02/18 12:25 90 15 141/84 95 Oxymask 10 05/02/18 12:15 92 17 139/85 96 Oxymask 10 05/02/18 12:05 36.3 94 14 145/87 94 Oxymask 10 05/02/18 08:00 95 Room Air 05/02/18 07:47 36.6 101 18 167/83 (111) 94 Nasal Cannula 2.0 05/02/18 07:03 101 18 94 Nasal Cannula 2.0 05/02/18 04:11 36.7 105 18 168/79 (108) 93 Nasal Cannula 2.5 Notes Mental Status: alert / awake / arousable, participated in evaluation Pt Amnestic to Procedure: Yes Nausea / Vomiting: adequately controlled Pain: adequately controlled Airway Patency, RR, SpO2: stable & adequate BP & HR: stable & adequate Hydration State: stable & adequate Anesthetic Complications: no major complications apparent
[2018-05-02] MEDS: HYDROCORTISONE IV 50 MG in SYRINGE 0 ML IV SCH (13:32)
[2018-05-02] MEDS: MoRPHine SULFATE 4 MG/ML 1 ML CARP\\VIAL IV PRN (13:34)
--- NOTE | 2018-05-02 13:56 | ECHOCARDIOGRAM REPORT ---
*NOTICE TO RECEIVING DEMOCRAT AGENCY This information is strictly Confidential and protected under [place] law. [place] law prohibits you from making any further disclosure of this information unless further disclosure is expressly permitted by the written consent of the person to whom it pertains or is authorized by law. A general authorization for the release of medical or other information is not sufficient for this purpose. Hospital accepts no responsibility if the information is made available to any other person, INCLUDING THE PATIENT. Interpretation Summary * Name: DENIS PEÑA Study Date: 05/02/2018 09:27 AM BP: 167/83 mmHg * Patient Location: C.2E\S\E211\S\1 HR: 94 * : 1940 (M/d/yyyy) Gender: Male Height: 67 in * Age: 77 yrs Ethnicity: CA Weight: 217 lb * Ordering Physician: Jai Brooks * Referring Physician: Self, Referred * Performed By: Kierra Aviles RDCS * * Reason For Study: R/O ENDOCARDITIS * BSA: 2.1 m2 * -- Conclusions -- * 1. Normal LV size, mild concentric LVH. * 2. LVEF 55-60%. No regional wall motion abnormalities. * 3. Normal RV size and function. * 4. Grade I diastolic dysfunction. * 5. No significant valvular pathology. * 6. Normal estimated RA and PA pressures. * 7. No prior studies for comparison. Procedure Details * A complete two-dimensional transthoracic echocardiogram was performed (2D, M-mode, Doppler and color flow Doppler). Left Ventricle * The left ventricle is grossly normal size. * There is mild concentric left ventricular hypertrophy. * Ejection Fraction = 55-60%. * No regional wall motion abnormalities noted. Right Ventricle * The right ventricle is grossly normal size. * The right ventricular systolic function is normal as assessed by tricuspid annular plane systolic excursion (TAPSE) (normal >1.5 cm). Mitral Valve * The mitral valve leaflets appear thickened, but open well. * There is no mitral valve stenosis. * Significant mitral regurgitation is absent. Tricuspid Valve * There is trace tricuspid regurgitation. * Right ventricular systolic pressure is normal. Aortic Valve * The aortic valve opens well. * The aortic valve is trileaflet. * Aortic stenosis is absent. Pulmonic Valve * The pulmonary valve is not well seen, but the Doppler examination is normal without significant regurgitation or stenosis. * Pulmonic stenosis is absent. * There is no significant pulmonary regurgitation. Great Vessels * The aortic root and proximal ascending aorta are normal sized. * Normal inferior vena cava size and collapsability with sniff indicates a normal right atrial pressure of 3 mmHg Left Ventricular Diastolic Function * Grade I diastolic dysfunction, (abnormal relaxation pattern). MMode 2D Measurements and Calculations IVSd 1.4 cm IVSs 1.7 cm LVIDd 5.4 cm LVIDs 3.9 cm LVPWd 1.3 cm LVPWs 1.8 cm IVS/LVPW 1.0 FS 28.0 % EDV(Teich) 143.4 ml ESV(Teich) 66.5 ml EF(Teich) 53.7 % EDV(cubed) 160.5 ml ESV(cubed) 59.9 ml EF(cubed) 62.6 % % IVS thick 18.7 % % LVPW thick 36.5 % LV mass(C)d 321.7 grams LV mass(C)dI 153.7 grams/m\S\2 LV mass(C)s 288.9 grams LV mass(C)sI 138.0 grams/m\S\2 SV(Teich) 76.9 ml SI(Teich) 36.7 ml/m\S\2 SV(cubed) 100.5 ml SI(cubed) 48.0 ml/m\S\2 Ao root diam 3.7 cm Ao root area 11.0 cm\S\2 LA dimension 3.8 cm LA/Ao 1.0 LVAd ap4 30.8 cm\S\2 LVLd ap4 9.3 cm EDV(MOD-sp4) 85.3 ml EDV(sp4-el) 86.7 ml LVAs ap4 19.5 cm\S\2 LVLs ap4 8.4 cm ESV(MOD-sp4) 44.3 ml ESV(sp4-el) 38.5 ml EF(MOD-sp4) 48.1 % EF(sp4-el) 55.6 % LVAd ap2 29.0 cm\S\2 LVLd ap2 10.6 cm EDV(MOD-sp2) 68.4 ml EDV(sp2-el) 67.2 ml LVAs ap2 17.0 cm\S\2 LVLs ap2 8.9 cm ESV(MOD-sp2) 30.3 ml ESV(sp2-el) 27.5 ml EF(MOD-sp2) 55.7 % EF(sp2-el) 59.1 % LVLd %diff 12.7 % EDV(MOD-bp) 80.9 ml LVLs %diff 5.5 % ESV(MOD-bp) 37.4 ml EF(MOD-bp) 53.7 % SV(MOD-sp4) 41.0 ml SI(MOD-sp4) 19.6 ml/m\S\2 SV(MOD-sp2) 38.1 ml SI(MOD-sp2) 18.2 ml/m\S\2 SV(MOD-bp) 43.5 ml SI(MOD-bp) 20.8 ml/m\S\2 SV(sp4-el) 48.2 ml SI(sp4-el) 23.0 ml/m\S\2 SV(sp2-el) 39.7 ml SI(sp2-el) 19.0 ml/m\S\2 Doppler Measurements and Calculations MV E max israel 71.6 cm/sec MV A max israel 85.5 cm/sec MV E/A 0.84 MV dec time 0.21 sec Ao V2 max 124.3 cm/sec Ao max PG 6.2 mmHg Ao max PG (full) 2.4 mmHg LV V1 max PG 3.8 mmHg LV V1 max 97.5 cm/sec TR max israel 242.7 cm/sec
--- NOTE | 2018-05-02 14:43 | Progress Note ---
Subjective Date of Service: May 02, 2018. Subjective Pt evaluation today including: conversation w/ patient, conversation w/ family , physical exam, chart review, lab review, review of studies, conversation w/ work and family life consultant, review of inpatient medication list Possible septic right knee, S/P procedure of "Right Knee Arthroscopic Irrigation and Debridement, partial medial and lateral menisectomy, debridement ACL, synovectomy" Doing well, no complaints, denies fever and chill, has good urine output, however bilateral hands moderate swelling, Problem List Medical Problems: (1) Acute right MCA stroke Status: Acute (2) Aneurysm, cerebral, nonruptured Status: Acute (3) CHI (closed head injury) Status: Acute (4) Chronic anemia Status: Acute (5) Chronic kidney disease Status: Acute (6) Chronic renal failure Status: Acute (7) Hyperkalemia Status: Acute (8) Hypoxemia Status: Acute (9) Pulmonary mass Status: Acute (10) Rheumatoid arthritis Status: Acute (11) Right lower lobe pneumonia Status: Acute (12) Scalp hematoma Status: Acute (13) Scalp laceration Status: Acute (14) Supratherapeutic INR Status: Acute Review of Systems Constitutional: + weakness, + fatigue, No fever, No chills, No sweats, No weight loss, No problem reported Eyes: No worsening of vision, No eye pain, No redness, No discharge, No diplopia ENT: No hearing loss, No unusual epistaxis, No nasal symptoms, No sore throat, No tinnitus, No dental problems, No trouble swallowing Respiratory: No cough, No sputum, No wheezing, No shortness of breath, No dyspnea on exertion, No dyspnea at rest, No hemoptysis Cardiac: No chest pain, No orthopnea, No PND, No edema, No claudication, No palpitations Abdomen: No pain, No nausea, No vomiting, No diarrhea, No constipation Musculoskeletal: No joint pain, No muscle pain, No swelling, No calf pain Male : No dysuria, No urinary frequency, No incontinence, No nocturia more than once/night, No slowing stream, No hematuria Neurologic: No memory loss, No paralysis, No weakness, No numbness/tingling, No vertigo, No balance problems Psychiatric: No depression symptoms, No anhedonism, No anxiety, No insomnia, No substance abuse Heme: No abnormal bleeding/bruising, No clotting problems, No swollen lymph nodes, No night sweats Endo: No fatigue, No excessive thirst, No excessive urination Skin: No rash, No itch, No new/changing skin lesions, No color change, No bleeding Objective Vital Signs Date Time Temp Pulse Resp B/P (MAP) Pulse Ox O2 Delivery O2 Flow Rate FiO2 05/02/18 12:55 36.3 82 14 121/79 95 Nasal Cannula 4 05/02/18 12:45 82 12 141/78 94 Nasal Cannula 4 05/02/18 12:35 96 15 139/79 96 Nasal Cannula 4 05/02/18 12:25 90 15 141/84 95 Oxymask 10 05/02/18 12:15 92 17 139/85 96 Oxymask 10 05/02/18 12:05 36.3 94 14 145/87 94 Oxymask 10 05/02/18 08:00 95 Room Air 05/02/18 07:47 36.6 101 18 167/83 (111) 94 Nasal Cannula 2.0 05/02/18 07:03 101 18 94 Nasal Cannula 2.0 05/02/18 04:11 36.7 105 18 168/79 (108) 93 Nasal Cannula 2.5 05/02/18 00:29 36.8 102 18 142/92 (109) 94 Nasal Cannula 2.5 05/02/18 00:00 94 Nasal Cannula 2.0 05/01/18 20:01 36.3 113 18 122/67 (85) 91 05/01/18 20:00 94 Nasal Cannula 2.0 05/01/18 19:36 98 18 94 Nasal Cannula 2.0 05/01/18 16:20 36.6 100 18 125/72 (89) 91 Room Air Physical Exam General Appearance: WD/WN, no apparent distress, + obese Eyes: normal inspection, PERRL, EOMI, sclerae normal ENT: normal ENT inspection, hearing grossly normal, pharynx normal Neck: supple, no adenopathy, thyroid normal, no JVD, no carotid bruits, trachea midline Respiratory/Chest: chest non-tender, lungs clear, normal breath sounds, no respiratory distress, no accessory muscle use Cardiovascular: regular rate, rhythm, no edema, no gallop, no JVD, no murmur Abdomen: normal bowel sounds, non tender, soft, no organomegaly, no pulsatile mass Extremities: normal range of motion, non-tender, normal inspection, no pedal edema, no calf tenderness, normal capillary refill, pelvis stable, + swelling ( Bilateral hand swelling), + pertinent finding Neurologic/Psychiatric: pct II-XII nml as tested, no motor/sensory deficits, alert, normal mood/affect, oriented x 3 Skin: normal color, warm/dry, no rash Lymphatic: no adenopathy Laboratory Results Last 24 Hours Test 05/01/18 16:15 05/02/18 06:32 05/02/18 09:24 Synovial Fluid Source KNEE Synovial Fluid Color PALE YELLOW Synovial Fluid Appearance TURBID Synovial Fluid WBC 3877 /uL Synovial Fluid RBC < 3000 /uL Synovial Fluid Polynuclear WBCs % 96.2 % Synovial Fluid Mononuclear WBCs % 3.8 % Synovial Fluid Crystals White Blood Count 18.21 K/uL Red Blood Count 2.67 M/uL Hemoglobin 7.5 g/dL Hematocrit 23.6 % Mean Corpuscular Volume 88.4 fL Mean Corpuscular Hemoglobin 28.1 pg Mean Corpuscular Hemoglobin Concent 31.8 g/dl Platelet Count 332 K/uL Mean Platelet Volume 9.5 fL Neutrophils (%) (Auto) 86.4 % Lymphocytes (%) (Auto) 2.8 % Monocytes (%) (Auto) 4.6 % Eosinophils (%) (Auto) 0.0 % Basophils (%) (Auto) 0.2 % Neutrophils # (Auto) 15.74 K/uL Lymphocytes # (Auto) 0.51 K/uL Monocytes # (Auto) 0.83 K/uL Eosinophils # (Auto) 0.00 K/uL Basophils # (Auto) 0.04 K/uL RDW Standard Deviation 53.3 fL RDW Coefficient of Variation 16.6 % Immature Granulocyte % (Auto) 6.0 % Immature Granulocyte # (Auto) 1.09 K/uL Hypochromasia PRESENT Echinocytes 1+ Prothrombin Time 14.2 SECONDS Prothromb Time International Ratio 1.4 Sodium Level 142 mmol/L Potassium Level 3.8 mmol/L Chloride Level 110 mmol/L Carbon Dioxide Level 22 mmol/L Anion Gap 10.0 mmol/L Blood Urea Nitrogen 68 mg/dl Creatinine 1.72 mg/dl Est Creatinine Clear Calc Drug Dose 40.2 ml/min Estimated GFR () 43.5 Estimated GFR (Non- 37.5 BUN/Creatinine Ratio 39.3 Random Glucose 175 mg/dl Calcium Level 8.2 mg/dl Phosphorus Level 5.1 mg/dl Magnesium Level 2.4 mg/dl Pro-B-Type Natriuretic Peptide 716 pg/ml Vancomycin Level Trough 24.6 mcg/ml Assessment and Plan 77-year-old white male admitted on April 30, 2018 with pneumonia possible sepsis and severe hyperkalemia, Possible hospital-acquired pneumonia patient stating [facility] and was discharged on April 05, 2018 Right knee septic arthritis, lateral and medial meniscus tears, synovitis, partial anterior cruciate ligament tear s/p Right Knee Arthroscopic Irrigation and Debridement, partial medial and lateral menisectomy, debridement ACL, synovectomy by Dr. Bertha Ellison Gram-positive bacteremia, 2 out of 2, likely from septic knee, aspiration of fluid positive for gram-positive cocci as well, possible MRSA, continue vancomycin, repeat cultures still positive need to repeat in 2 days again Severe hyperkalemia on admission, resolved Possible pneumonia upon admission, patient currently on Neb, and Levaquin Acute on chronic kidney disease stage III. Improving with IV fluid Mild tachycardia. Resolved Hypertherapeutic INR is 6.9 upon admission, got 1 dose of vitamin K, and this morning is 1.1, restarted oral Coumadin, today's INR is 1.4, continue current dose of Coumadin History of pulmonary embolism. History of atrial fibrillation, on Coumadin. Currently is sinus tachycardia, restarted Coumadin, do not feel the need to have bridging for anticoagulation, INR 1.4 today hx of Rheumatoid arthritis, is on oral steroid prior to admission, has been on hydrocortisone IV, will tapering Severe constipation, will order suppository and enema cont tele Follow-up culture and sensitivity, adjust antibiotic if needed, echo was done per recommendation from infectious disease, Continue supportive care, Discussed with patient and family about her condition and care plan, multiple medical conditions prognosis is guarded Continued [facility] stay due to: multiple IV medications needed Discharge planning: uncertain
--- NOTE | 2018-05-02 14:46 | OPERATIVE REPORT ---
DATE OF OPERATION: 05/02/2018 PREOPERATIVE DIAGNOSIS: Right knee septic arthritis. POSTOPERATIVE DIAGNOSES: 1. Right knee septic arthritis 2. Medial meniscus tear. 3. Lateral meniscus tear. 4. Partial tear of the anterior cruciate ligament. 5. Synovitis. PROCEDURES: 1. Right knee arthroscopic irrigation and debridement. 2. Partial medial meniscectomy 3. Partial lateral meniscectomy. 4. Debridement of the ACL. 5. Synovectomy of the knee. SURGEON: Mehrdad Ellison DO ACRYLIC FABRICATOR: None. ANESTHESIA: General LMA with local. SPECIMENS: None obtained today; however, aspirate obtained at bedside yesterday and resulted. DRAINS: Hemovac x2. COMPLICATIONS: None. BLOOD LOSS: 2 mL active. PERTINENT HISTORY: This is a 77-year-old gentleman with a several week history of slightly worsening right knee pain. He presented to [facility] for sepsis and possible pulmonary infection, pneumonia. The medical service requested orthopedic consultation due to the right knee pain. He had an aspiration of the right knee which resulted in a slightly elevated white count, positive for gouty crystals, and gram positive cocci in clusters with a milky yellow consistency. The patient was scheduled for surgery as indicated. All potential risks, benefits, complications, alternatives, rehab, potential for incomplete relief of symptoms, need for further surgery, DVT, PE, , persistent pain, swelling, scarring, weakness, neurovascular injury, wound complications, need for further surgery and possible loss of function were discussed with the patient. The patient decided to proceed with the procedure as indicated. DESCRIPTION OF PROCEDURE: The patient was taken to operative suite, placed supine on the operating room table. I reviewed consent and identification of proper operative site. The patient was anesthetized, LMA was placed. Tourniquet was placed high on the right thigh over cast padding. Right lower extremity was then sterilely prepped and draped in usual fashion, elevated and the tourniquet was inflated to 350 mmHg. There was no exsanguination performed due to the infection. Next, the 11 blade scalpel was used to make an incision in inferolateral aspect of the right knee followed by placement of blunt trocar and sleeve, camera and inflow. On direct visualization, the superomedial portal was established with an 11 blade scalpel incision followed by placement of a blunt trocar sleeve and outflow. Next, sequential diagnostic arthroscopy commenced at the suprapatellar pouch noting significant hypertrophic synovitis with a murky fluid. After this was irrigated clear, significant synovitis was noted throughout the knee. There was also noted to be degenerative arthritis in all 3 compartments. The medial gutter was noted to have no loose bodies; however synovitis was noted. The medial joint space noted to have a grade 3-4 chondromalacia and uniform symmetric loss of joint space. There was noted to be a significant medial meniscus tear with a moderate sized flap. Next, an 11 blade scalpel, incision was made for a medial portal placement and then a 4.5 mm sucker shaver was introduced to perform a partial medial meniscectomy. Irrigation was also performed. The irrigant solution was loaded with bacitracin. The probe was inserted and probed the remaining medial meniscus for stability and it was noted to be stable. Next, attention then directed toward the ACL and PCL. There was noted to be partial tear of the ACL degenerative type with some fibrillation and flaps. A 4.5 mm sucker shaver was then used to debride the ACL. Approximately 65% of the ACL was intact. PCL was noted to be intact. Next, attention then directed toward the lateral compartment, was noted to be tear of the posterior horn and body of the lateral meniscus. A 4.5 mm sucker shaver was then used to perform a partial lateral meniscectomy. Synovectomy was also performed in this compartment and was also noted to be symmetric grade 3-4 chondromalacia of the femur and the tibia. Next, attention then directed toward the lateral gutter. Significant synovitis was noted. No loose bodies. Synovectomy was performed in the lateral gutter. Synovectomy was then performed in the suprapatellar pouch and also in the medial gutter. Once this was completed, a total of 5 x3 L bag with bacitracin had been used to lavage the joint. No evidence of purulent fluid collection. The 10-Danish Hemovac drains x2 were placed in the joint under direct visualization using the arthroscope exiting the superolateral aspect of the knee. Next, the arthroscope was removed. All excess fluid was expressed from the joint and the portal sites were closed using interrupted 3-0 Prolene. The joint was injected with approximately 15 mL of 0.5% Marcaine with epinephrine and then a sterile compressive dressing was applied overwrapped with a double Adam wrap. The tourniquet was released, the patient was awakened and taken to recovery in stable condition. I attest to the content of the Intraoperative Record and any orders documented therein. Any exception s are noted below.
[2018-05-02] MEDS: OXYCODONE HCL IR 5 MG TAB (IMMEDIATE RELEASE) PO PRN (15:37)
[2018-05-02] MEDS: VANCOMYCIN IV 1,250 MG in SODIUM CHLORIDE 0.9% 250ML 250 ML IV SCH (15:37)
[2018-05-03] VITALS (11 sets, daily range): BP systolic 125–162; BP diastolic 68–85; PULSE 86–96; TEMP 36.8–37.1; O2SAT 91–97
[2018-05-03] MEDS: HYDROCORTISONE IV 50 MG in SYRINGE 0 ML IV SCH ×4 (01:31→21:22)
[2018-05-03] MEDS: OXYCODONE HCL IR 5 MG TAB (IMMEDIATE RELEASE) PO PRN ×3 (01:35→21:17)
[2018-05-03 05:44] LABS: HEMATOCRIT 23.6 % (42-52); HEMOGLOBIN 7.7 g/dL (14.0-18.0); MEAN CELL VOLUME 89.4 fL (80-100); MEAN CORPUSCULAR HEMOGLOBIN 29.2 pg (25-34); MEAN CORPUSCULAR HGB CONC 32.6 g/dl (32-36); PLATELET COUNT 300 K/uL (130-400); RED CELL DISTRIBUTION WIDTH CV 16.6 % (11.5-14.5); RED CELL DISTRIBUTION WIDTH SD 53.9 fL (36.4-46.3)
[2018-05-03 06:08] LABS: CALCIUM 7.8 mg/dl (8.5-10.1); CREATININE 1.55 mg/dl (0.60-1.40); POTASSIUM 3.8 mmol/L (3.5-5.1)
[2018-05-03 06:28] LABS: BASO % 0.2 %; BASO ABS # 0.03 K/uL (0-0.2); EOS % 0.1 %; EOS ABS # 0.01 K/uL (0-0.5); IG# 1.02 K/uL (0.00-0.02); LYMPH % 5.1 %; LYMPH ABS # 0.72 K/uL (1.2-3.4); MONO ABS # 0.84 K/uL (0.11-0.59); NEUT % 81.4 %; NEUT ABS # 11.48 K/uL (1.4-6.5)
[2018-05-03] MEDS: ALBUT/IPRATROP 3MG/0.5MG NEB 3 ML VIAL INH SCH ×4 (07:09→19:08)
[2018-05-03] MEDS: POLYETHYLENE (MIRALAX) 17 GM PACK PO SCH (07:54)
[2018-05-03] MEDS: LEFLUNOMIDE 10 MG TAB PO SCH (08:03)
[2018-05-03] MEDS: DOCUSATE SODIUM 100 MG CAP PO SCH ×2 (08:03→21:00)
[2018-05-03] MEDS: METOPROLOL TARTRATE 25 MG TAB PO SCH ×2 (08:04→21:20)
[2018-05-03] MEDS: AMLODIPINE BESYLATE 5 MG TAB PO SCH (08:05)
[2018-05-03] MEDS: SODIUM BICARBONATE 650 MG TAB PO SCH ×3 (08:05→21:18)
[2018-05-03] MEDS: PANTOprazole SOD 40 MG TAB PO SCH (08:05)
[2018-05-03] MEDS: PRAVASTATIN SOD 10 MG TAB PO SCH (08:05)
[2018-05-03] MEDS: VANCOMYCIN IV 1,250 MG in SODIUM CHLORIDE 0.9% 250ML 250 ML IV SCH (09:07)
[2018-05-03] MEDS: MoRPHine SULFATE 4 MG/ML 1 ML CARP\\VIAL IV PRN ×2 (09:08→14:02)
--- NOTE | 2018-05-03 10:49 | Nephrology Progress Note ---
Nephrology Progress Note Date of Service May 03, 2018. Chief Complaint GIANCARLO / CKD Subjective Mr. Davis was seen & examined in his hospital room this morning. He complains of R knee discomfort but denies fever, angina or dyspnea. Review of Systems Constitutional: No fever Cardiovascular: No chest pain Respiratory: No dyspnea at rest Abdomen: No pain, No nausea, No vomiting Endocrine: + fatigue A complete review of systems was performed. Pertinent positives are noted above. All other systems are negative. Vital Signs Last 8 Hrs Date Time Temp Pulse Resp B/P (MAP) Pulse Ox O2 Delivery O2 Flow Rate FiO2 05/03/18 08:00 94 Room Air 05/03/18 07:50 37.1 94 18 155/78 (103) 97 05/03/18 07:09 92 18 92 Room Air 05/03/18 03:49 36.8 93 19 149/85 (106) 95 Room Air Last Recorded Weight Weight (Kilograms): 200.000 Physical Exam General Appearance: no apparent distress Head: atraumatic Eyes: PERRL, EOMI Neck: no adenopathy Respiratory/Chest: lungs clear, no respiratory distress Cardiovascular: regular rate, rhythm Abdomen/GI: normal bowel sounds, non tender, soft Extremities/Musculoskelatal: + pertinent finding (R knee w/ surgical dressing and drain in place) Neurologic/Psych: alert, oriented x 3 Family History Cancer Diabetes mellitus Heart disease Hypertension Lung disease Negative for CKD / ESRD Social History Marital Status: Occupation: retired . Retired. Former smoker. Laboratory Results Past 24 Hours 05/03/18 05:11 Red Blood Count 2.64, Mean Corpuscular Volume 89.4, Mean Corpuscular Hemoglobin 29.2, Mean Corpuscular Hemoglobin Concent 32.6, Mean Platelet Volume 9.0, Neutrophils (%) (Auto) 81.4, Lymphocytes (%) (Auto) 5.1, Monocytes (%) (Auto) 6.0, Eosinophils (%) (Auto) 0.1, Basophils (%) (Auto) 0.2, Neutrophils # (Auto) 11.48, Lymphocytes # (Auto) 0.72, Monocytes # (Auto) 0.84, Eosinophils # (Auto) 0.01, Basophils # (Auto) 0.03 05/03/18 05:11 Test 05/03/18 05:11 05/03/18 07:52 White Blood Count 14.10 K/uL (4.8-10.8) Red Blood Count 2.64 M/uL (4.7-6.1) Hemoglobin 7.7 g/dL (14.0-18.0) Hematocrit 23.6 % (42-52) Mean Corpuscular Volume 89.4 fL (80-100) Mean Corpuscular Hemoglobin 29.2 pg (25-34) Mean Corpuscular Hemoglobin Concent 32.6 g/dl (32-36) Platelet Count 300 K/uL (130-400) Mean Platelet Volume 9.0 fL (7.4-10.4) Neutrophils (%) (Auto) 81.4 % Lymphocytes (%) (Auto) 5.1 % Monocytes (%) (Auto) 6.0 % Eosinophils (%) (Auto) 0.1 % Basophils (%) (Auto) 0.2 % Neutrophils # (Auto) 11.48 K/uL (1.4-6.5) Lymphocytes # (Auto) 0.72 K/uL (1.2-3.4) Monocytes # (Auto) 0.84 K/uL (0.11-0.59) Eosinophils # (Auto) 0.01 K/uL (0-0.5) Basophils # (Auto) 0.03 K/uL (0-0.2) RDW Standard Deviation 53.9 fL (36.4-46.3) RDW Coefficient of Variation 16.6 % (11.5-14.5) Immature Granulocyte % (Auto) 7.2 % Immature Granulocyte # (Auto) 1.02 K/uL (0.00-0.02) Tear Drop Cells 1+ Echinocytes 1+ Anion Gap 8.0 mmol/L (3-11) Est Creatinine Clear Calc Drug Dose 44.6 ml/min Estimated GFR () 49.3 Estimated GFR (Non- 42.5 BUN/Creatinine Ratio 35.2 (10-20) Calcium Level 7.8 mg/dl (8.5-10.1) Prothrombin Time 20.8 SECONDS (9.0-12.0) Prothromb Time International Ratio 2.0 (0.9-1.1) Allergies Coded Allergies: No Known Allergies (Unverified , 04/30/18) Medications Current Inpatient Medications Medications (Trade) Dose Ordered Sig/Sascha Route Start Time Stop Time Status Last Admin Dose Admin Acetaminophen (Tylenol Tab) 650 mg Q4H PRN PO 04/30/18 16:30 05/30/18 16:29 Al Hydrox/Mg Hydrox/Simethicone (Maalox Max Susp) 15 ml Q4H PRN PO 04/30/18 16:30 05/30/18 16:29 Magnesium Hydroxide (Milk Of Magnesia Susp) 30 ml Q12H PRN PO 04/30/18 16:30 05/30/18 16:29 Zolpidem Tartrate (Ambien Tab) 5 mg HSZ PRN PO 04/30/18 16:30 05/30/18 16:29 Ondansetron HCl (Zofran Inj) 4 mg Q6H PRN IV 04/30/18 16:30 05/30/18 16:29 Polyethylene (Miralax Powder Packet) 17 gm DAILY PRN PO 04/30/18 16:30 05/30/18 16:29 Amlodipine Besylate (Norvasc Tab) 10 mg QAM PO 05/01/18 09:00 05/31/18 08:59 05/03/18 08:05 10 MG Docusate Sodium (coLACE CAP) 100 mg BID PRN PO 04/30/18 16:45 05/30/18 16:44 Pravastatin Sodium (Pravachol Tab) 10 mg QAM PO 05/01/18 09:00 05/31/18 08:59 05/03/18 08:05 10 MG Leflunomide (Arava) 20 mg QAM PO 05/01/18 09:00 05/31/18 08:59 05/03/18 08:03 20 MG Sodium Bicarbonate (Sodium Bicarbonate Tab) 650 mg TID PO 04/30/18 21:00 05/30/18 20:59 05/03/18 08:05 650 MG Hydralazine HCl (HydrALAZINE INJ) 20 mg Q4 PRN IV. 04/30/18 16:45 05/30/18 16:44 Albuterol/ Ipratropium (Duoneb) 3 ml QIDR INH 04/30/18 20:00 05/30/18 19:59 05/03/18 07:09 3 ML Morphine Sulfate (MoRPHine SULFATE INJ) 4 mg Q6 PRN IV 04/30/18 16:45 05/14/18 16:44 05/03/18 09:08 4 MG Docusate Sodium (coLACE CAP) 100 mg BID PO 04/30/18 21:00 05/30/18 20:59 05/03/18 08:03 100 MG Polyethylene (Miralax Powder Packet) 17 gm DAILY PO 05/01/18 09:00 05/31/18 08:59 05/01/18 07:50 17 GM Pantoprazole Sodium (Protonix Tab) 40 mg QAM PO 05/01/18 09:00 05/04/18 09:01 05/03/18 08:05 40 MG Bisacodyl (Dulcolax Supp) 10 mg DAILY PRN MN 05/01/18 13:00 05/31/18 12:59 Sodium Biphosphate/ Sodium Phosphate (Fleet Enema) 132 ml DAILY PRN MN 05/01/18 13:00 05/31/18 12:59 05/02/18 05:00 132 ML Lidocaine (AneCream 4%) 1 appln Q12 PRN EXT 05/01/18 13:15 05/31/18 13:14 05/01/18 13:59 1 APPLN Oxycodone HCl (Roxicodone Immediate Rel Tab) `1-2 tabs for pain 1 tab ... Q4H PRN PO 05/01/18 14:00 05/15/18 13:59 05/03/18 09:08 10 MG Metoprolol Tartrate (Lopressor Tab) 12.5 mg BID PO 05/02/18 09:00 06/01/18 08:59 05/03/18 08:04 12.5 MG Hydrocortisone Sodium Succinate 50 mg/Syringe 1 ml @ 4 mls/min Q8 IV 05/02/18 14:00 06/01/18 13:59 05/03/18 06:14 4 MLS/MIN Warfarin Sodium (Coumadin Tab) 3 mg DAILY@1600 PO 05/03/18 16:00 06/02/18 15:59 Ceftriaxone Sodium 1 gm/ Dextrose 50 ml @ 100 mls/hr Q24H IV 05/03/18 14:00 05/13/18 13:59 Levofloxacin (Levaquin Tab) 750 mg Q2D@11 PO 05/04/18 11:00 8/13/18 10:59 Impression (1) Acute kidney injury (2) Chronic kidney disease, stage III (moderate) (3) Hypertension (4) Hyperkalemia (5) Right lower lobe pneumonia (6) Rheumatoid arthritis Recommendations ACUTE KIDNEY INJURY: -- Resolved. -- Heplock IVF. Encourage oral hydration. -- Monitor PRP CHRONIC KIDNEY DISEASE: -- Baseline creatinine 1.5 (2017 outpatient records) HYPERTENSION: -- Blood pressure is acceptable. Will monitor. Continue to hold Lisinopril ID: -- On empiric IV Rocephin & Levaquin w/ dosing as per pharmacy -- Blood cultures + for Staph Aureus -- R knee washout performed 05/02/18 -- TTE report reviewed: No valvular abnormality OTHER: -- Will request consultation w/ Dr. Paul to evaluate lung nodule ( Nonemergent - Friday)
--- NOTE | 2018-05-03 11:10 | Orthopedic Progress Note ---
Orthopedic Progress Note Date of Service May 03, 2018. Subjective Post OP Day: 1 Reports: feeling well, complaints (right knee pain off and on), Denies: chest pain, SOB, nausea / vomiting, light headedness, calf pain Additional Notes: States the knee feels a "a little rough" today but somewhat better than yesterday. Objective calves soft nontender, N/V intact, dressing C/D/I, A&O x3, toes mobile, hemovac drainage (60ml latest shift) Date Time Temp Pulse Resp B/P (MAP) Pulse Ox O2 Delivery O2 Flow Rate FiO2 05/03/18 08:00 94 Room Air 05/03/18 07:50 37.1 94 18 155/78 (103) 97 05/03/18 07:09 92 18 92 Room Air 05/03/18 03:49 36.8 93 19 149/85 (106) 95 Room Air 05/02/18 23:09 36.8 91 18 139/73 (95) 92 Room Air 05/02/18 20:00 91 Room Air 2.0 05/02/18 19:15 36.7 102 18 119/69 (86) 91 Room Air 05/02/18 19:05 80 18 95 Room Air 05/02/18 15:45 36.7 91 18 127/70 (89) 94 Nasal Cannula 2.0 05/02/18 15:15 99 18 96 Nasal Cannula 4.0 05/02/18 12:55 36.3 82 14 121/79 95 Nasal Cannula 4 05/02/18 12:45 82 12 141/78 94 Nasal Cannula 4 05/02/18 12:35 96 15 139/79 96 Nasal Cannula 4 05/02/18 12:25 90 15 141/84 95 Oxymask 10 05/02/18 12:15 92 17 139/85 96 Oxymask 10 05/02/18 12:05 36.3 94 14 145/87 94 Oxymask 10 Laboratory Results 24 Hours: Test 05/03/18 05:11 05/03/18 07:52 White Blood Count 14.10 K/uL Red Blood Count 2.64 M/uL Hemoglobin 7.7 g/dL Hematocrit 23.6 % Mean Corpuscular Volume 89.4 fL Mean Corpuscular Hemoglobin 29.2 pg Mean Corpuscular Hemoglobin Concent 32.6 g/dl Platelet Count 300 K/uL Mean Platelet Volume 9.0 fL Neutrophils (%) (Auto) 81.4 % Lymphocytes (%) (Auto) 5.1 % Monocytes (%) (Auto) 6.0 % Eosinophils (%) (Auto) 0.1 % Basophils (%) (Auto) 0.2 % Neutrophils # (Auto) 11.48 K/uL Lymphocytes # (Auto) 0.72 K/uL Monocytes # (Auto) 0.84 K/uL Eosinophils # (Auto) 0.01 K/uL Basophils # (Auto) 0.03 K/uL Prothromb Time International Ratio 2.0 Prothrombin Time 20.8 SECONDS Assessment & Plan Assessment: POD 1 s/p I&D Right Septic Knee Plan: PT/OT - WBAT RLE; Gentle ROM as tolerated. Continue IV antibx as per ID/Med Team Plan for dressing change possibly tomorrow. If wound drainage remains high, may leave the drain in an additional day. Inhouse Planning Pain Management: Morphine, Oxy IR DVT Prophylaxis: TEDs, SCDs, Coumadin
--- NOTE | 2018-05-03 12:08 | Progress Note ---
Subjective Date of Service: May 03, 2018. Subjective Pt evaluation today including: conversation w/ patient, conversation w/ family , physical exam, chart review, lab review, review of studies, conversation w/ reporting consultant, review of inpatient medication list POD 1 s/p I&D Right Septic Knee, was out of bed to chair, no dizziness, pain fairly controlled, patient is eating lunch now, Problem List Medical Problems: (1) Acute right MCA stroke Status: Acute (2) Aneurysm, cerebral, nonruptured Status: Acute (3) CHI (closed head injury) Status: Acute (4) Chronic anemia Status: Acute (5) Chronic kidney disease Status: Acute (6) Chronic renal failure Status: Acute (7) Hyperkalemia Status: Acute (8) Hypoxemia Status: Acute (9) Pulmonary mass Status: Acute (10) Rheumatoid arthritis Status: Acute (11) Right lower lobe pneumonia Status: Acute (12) Scalp hematoma Status: Acute (13) Scalp laceration Status: Acute (14) Supratherapeutic INR Status: Acute Review of Systems Constitutional: + weakness, + fatigue, No fever, No chills, No sweats, No weight loss, No problem reported Eyes: No worsening of vision, No eye pain, No redness, No discharge, No diplopia ENT: No hearing loss, No unusual epistaxis, No nasal symptoms, No sore throat, No tinnitus, No dental problems, No trouble swallowing Respiratory: No cough, No sputum, No wheezing, No shortness of breath, No dyspnea on exertion, No dyspnea at rest, No hemoptysis Cardiac: No chest pain, No orthopnea, No PND, No edema, No claudication, No palpitations Abdomen: No pain, No nausea, No vomiting, No diarrhea, No constipation Musculoskeletal: + joint pain, No muscle pain, No swelling, No calf pain Male : No dysuria, No urinary frequency, No incontinence, No nocturia more than once/night, No slowing stream, No hematuria Neurologic: No memory loss, No paralysis, No weakness, No numbness/tingling, No vertigo, No balance problems Psychiatric: No depression symptoms, No anhedonism, No anxiety, No insomnia, No substance abuse Heme: No abnormal bleeding/bruising, No clotting problems, No swollen lymph nodes, No night sweats Endo: No fatigue, No excessive thirst, No excessive urination Skin: No rash, No itch, No new/changing skin lesions, No color change, No bleeding Objective Vital Signs Date Time Temp Pulse Resp B/P (MAP) Pulse Ox O2 Delivery O2 Flow Rate FiO2 05/03/18 11:12 86 18 92 Room Air 05/03/18 08:00 94 Room Air 05/03/18 07:50 37.1 94 18 155/78 (103) 97 05/03/18 07:09 92 18 92 Room Air 05/03/18 03:49 36.8 93 19 149/85 (106) 95 Room Air 05/02/18 23:09 36.8 91 18 139/73 (95) 92 Room Air 05/02/18 20:00 91 Room Air 2.0 05/02/18 19:15 36.7 102 18 119/69 (86) 91 Room Air 05/02/18 19:05 80 18 95 Room Air 05/02/18 15:45 36.7 91 18 127/70 (89) 94 Nasal Cannula 2.0 05/02/18 15:15 99 18 96 Nasal Cannula 4.0 05/02/18 12:55 36.3 82 14 121/79 95 Nasal Cannula 4 05/02/18 12:45 82 12 141/78 94 Nasal Cannula 4 05/02/18 12:35 96 15 139/79 96 Nasal Cannula 4 05/02/18 12:25 90 15 141/84 95 Oxymask 10 05/02/18 12:15 92 17 139/85 96 Oxymask 10 05/02/18 12:05 36.3 94 14 145/87 94 Oxymask 10 Physical Exam General Appearance: WD/WN, no apparent distress, + obese Eyes: normal inspection, PERRL, EOMI, sclerae normal ENT: normal ENT inspection, hearing grossly normal, pharynx normal Neck: supple, no adenopathy, thyroid normal, no JVD, no carotid bruits, trachea midline Respiratory/Chest: chest non-tender, normal breath sounds, no respiratory distress, no accessory muscle use, + decreased breath sounds Cardiovascular: regular rate, rhythm, no edema, no gallop, no JVD, no murmur Abdomen: normal bowel sounds, non tender, soft, no organomegaly, no pulsatile mass Extremities: normal range of motion, non-tender, normal inspection, no pedal edema, no calf tenderness, normal capillary refill, pelvis stable, + swelling ( Bilateral lower extremity swelling 1+, bilateral hand swelling 1+) Neurologic/Psychiatric: contact lens assistant II-XII nml as tested, no motor/sensory deficits, alert, normal mood/affect, oriented x 3 Skin: normal color, warm/dry, no rash Lymphatic: no adenopathy Laboratory Results Last 24 Hours Test 05/03/18 05:11 05/03/18 07:52 White Blood Count 14.10 K/uL Red Blood Count 2.64 M/uL Hemoglobin 7.7 g/dL Hematocrit 23.6 % Mean Corpuscular Volume 89.4 fL Mean Corpuscular Hemoglobin 29.2 pg Mean Corpuscular Hemoglobin Concent 32.6 g/dl Platelet Count 300 K/uL Mean Platelet Volume 9.0 fL Neutrophils (%) (Auto) 81.4 % Lymphocytes (%) (Auto) 5.1 % Monocytes (%) (Auto) 6.0 % Eosinophils (%) (Auto) 0.1 % Basophils (%) (Auto) 0.2 % Neutrophils # (Auto) 11.48 K/uL Lymphocytes # (Auto) 0.72 K/uL Monocytes # (Auto) 0.84 K/uL Eosinophils # (Auto) 0.01 K/uL Basophils # (Auto) 0.03 K/uL RDW Standard Deviation 53.9 fL RDW Coefficient of Variation 16.6 % Immature Granulocyte % (Auto) 7.2 % Immature Granulocyte # (Auto) 1.02 K/uL Tear Drop Cells 1+ Echinocytes 1+ Sodium Level 143 mmol/L Potassium Level 3.8 mmol/L Chloride Level 110 mmol/L Carbon Dioxide Level 25 mmol/L Anion Gap 8.0 mmol/L Blood Urea Nitrogen 55 mg/dl Creatinine 1.55 mg/dl Est Creatinine Clear Calc Drug Dose 44.6 ml/min Estimated GFR () 49.3 Estimated GFR (Non- 42.5 BUN/Creatinine Ratio 35.2 Random Glucose 165 mg/dl Calcium Level 7.8 mg/dl Prothrombin Time 20.8 SECONDS Prothromb Time International Ratio 2.0 Assessment and Plan 77-year-old white male admitted on April 30, 2018 with pneumonia possible sepsis , bacteremia possible from right knee infection, and severe hyperkalemia, Possible hospital-acquired pneumonia [facility] and was discharged on April 05, 2018 Right knee septic arthritis, lateral and medial meniscus tears, synovitis, partial anterior cruciate ligament tear s/p Right Knee Arthroscopic Irrigation and Debridement, partial medial and lateral menisectomy, debridement ACL, synovectomy by Dr. Bertha Ellison POD 1 PT/OT - WBAT RLE; Gentle ROM as tolerated. Aspiration culture and blood culture is consistent which is MSSA, dressing change possibly tomorrow. MSSA bacteremia, 2 out of 2, which is in the same identity as from the culture of aspiration of fluid positive, discontinue vancomycin, repeat cultures sent Is on Rocephin IV after discussed with infectious disease, f/u infectious disease input for the length of IV antibiotic for septic arthritis and MSSA bacteremia, may need a PICC line, Severe hyperkalemia on admission, resolved Possible pneumonia upon admission, patient currently on Neb, and Levaquin, 4/7 days Levaquin, Acute on chronic kidney disease stage III. Improving with IV fluid, stopped IV fluid because bilateral lower extremity and bilateral hands mild swelling Mild tachycardia. Resolved Hypertherapeutic INR is 6.9 upon admission, got 1 dose of vitamin K, and this morning is 1.1, restarted oral Coumadin, today's INR is 2, continue current dose of Coumadin History of pulmonary embolism. History of atrial fibrillation, on Coumadin. Currently is sinus tachycardia, restarted Coumadin, do not feel the need to have bridging for anticoagulation hx of Rheumatoid arthritis, is on oral steroid prior to admission, has been on hydrocortisone IV, continue tapering Severe constipation, will order suppository and enema Has been on telemetry, send him to [facility], Patient needs rehab, possible able to discharge to rehab soon if figure out in the names of IV antibiotics, repeated blood culture negative Continued [facility] stay due to: multiple IV medications needed Discharge planning: rehab hospital
[2018-05-03] MEDS: CEFTRIAXONE SOD INJ 1 GM in DEXTROSE 5% ADD-VANTAGE 50ML 50 ML IV SCH (14:25)
[2018-05-03] MEDS: WARFARIN SOD 1 MG TAB PO SCH (16:19)
[2018-05-04] VITALS (7 sets, daily range): BP systolic 143–157; BP diastolic 78–85; PULSE 81–93; TEMP 36.9–37.3; O2SAT 92–95
[2018-05-04] MEDS: OXYCODONE HCL IR 5 MG TAB (IMMEDIATE RELEASE) PO PRN ×4 (03:10→17:44)
[2018-05-04] MEDS ORDERED: VANCOMYCIN CONSULT ACTIVE PRN (03:15)
[2018-05-04] MEDS ORDERED: VANCOMYCIN TROUGH ONE (03:30)
[2018-05-04 04:01] LABS: INR 2.4 (0.9-1.1)
[2018-05-04 04:14] LABS: CALCIUM 7.7 mg/dl (8.5-10.1); CREATININE 1.46 mg/dl (0.60-1.40); PHOSPHORUS 3.1 mg/dl (2.5-4.9); POTASSIUM 4.1 mmol/L (3.5-5.1)
[2018-05-04] MEDS ORDERED: VANCOMYCIN IV 1,250 MG in SODIUM CHLORIDE 0.9% 250ML 250 ML IV SCH (05:00)
[2018-05-04] MEDS: HYDROCORTISONE IV 50 MG in SYRINGE 0 ML IV SCH ×4 (05:01→21:56)
--- NOTE | 2018-05-04 05:05 | Pharmacy Progress Note ---
Pharmacy Abx Dose Progress Nt Date of Service May 04, 2018. Pharmacy Dosing Scope The patient is currently receiving the following antimicrobial agents per Pharmacy consult: Vancomycin 1250mg IV every 18 hours This patients Vancomycin was discontinued yesterday but re-started this AM by Dr. Walter. Coincidently the timing was prior to the plan previously to check a trough level almost to the minute. I ordered a stat random which returned therapeutic and I restarted the old order at 1250mg IV every 18 hours. Objective Height (Feet): 5 Height (Inches): 7.00 Weight (Kilograms): 200.000 Vital Signs (Past 12Hrs) Vital Signs Past 12 Hours Date Time Temp Pulse Resp B/P (MAP) Pulse Ox O2 Delivery O2 Flow Rate FiO2 05/04/18 00:05 Room Air 05/03/18 22:45 37.0 91 16 162/85 (110) 92 Room Air 05/03/18 19:08 94 14 91 Room Air Lab Results (24Hrs) Laboratory Tests (24 Hours) Test 05/03/18 05:11 White Blood Count 14.10 K/uL (4.8-10.8) H Red Blood Count 2.64 M/uL (4.7-6.1) L Hemoglobin 7.7 g/dL (14.0-18.0) L Hematocrit 23.6 % (42-52) L Mean Corpuscular Volume 89.4 fL (80-100) Mean Corpuscular Hemoglobin 29.2 pg (25-34) Mean Corpuscular Hemoglobin Concent 32.6 g/dl (32-36) Platelet Count 300 K/uL (130-400) Mean Platelet Volume 9.0 fL (7.4-10.4) Neutrophils (%) (Auto) 81.4 % Lymphocytes (%) (Auto) 5.1 % Monocytes (%) (Auto) 6.0 % Eosinophils (%) (Auto) 0.1 % Basophils (%) (Auto) 0.2 % Neutrophils # (Auto) 11.48 K/uL (1.4-6.5) H Lymphocytes # (Auto) 0.72 K/uL (1.2-3.4) L Monocytes # (Auto) 0.84 K/uL (0.11-0.59) H Eosinophils # (Auto) 0.01 K/uL (0-0.5) Basophils # (Auto) 0.03 K/uL (0-0.2) Micro Results Date/Time Source Procedure Growth Status 05/03/18 08:12 Blood Blood Culture Pending Received 05/03/18 08:10 Blood Blood Culture - Preliminary Gram Positive Cocci Resulted 05/01/18 15:39 Blood Blood Culture - Preliminary Staphylococcus Aureus Resulted 05/01/18 15:31 Blood Blood Culture - Final Staphylococcus Aureus Complete 04/30/18 16:38 Blood Blood Culture - Final Staphylococcus Aureus Complete 04/30/18 16:34 Blood Blood Culture - Final Staphylococcus Aureus Complete 05/01/18 09:30 Nasal MRSA DNA Surveillance Screen - Final Specimen Negative for MRSA by DNA Probe Complete 05/01/18 16:15 Aspirate - Other Knee Right Gram Stain - Final Resulted 05/01/18 16:15 Bacterial Culture - Preliminary Staphylococcus Aureus Resulted Risk Factors for Resistance * Immunocompromised (chronic steroid therapy, chemotherapy, immunomodulators) Assessment & Plan Assessment 77 year old male receiving Vancomycin for a septic knee (continuation) Day # 5 of antimicrobial therapy Plan Vancomycin IV * Trough (random) level of 17.3 mcg/mL is therapeutic * Continue dose of 1250 mg IV every 18 hours * Goal trough level : 15 to 20 mcg/mL * I did not order the next trough level as Vancomycin had recently been discontinued on day shift Pharmacy will continue to follow and will adjust dose/frequency as necessary. Thank you.
[2018-05-04] MEDS: ALBUT/IPRATROP 3MG/0.5MG NEB 3 ML VIAL INH SCH ×4 (07:28→18:54)
--- NOTE | 2018-05-04 08:10 | Anesthesiology Progress Note ---
Anesthesia Post Op Note Date & Time May 04, 2018 at 08:09 Vital Signs Vital Signs Past 12 Hours Date Time Temp Pulse Resp B/P (MAP) Pulse Ox O2 Delivery O2 Flow Rate FiO2 05/04/18 07:39 Room Air 05/04/18 07:28 83 16 95 Room Air 05/04/18 06:49 37.2 81 18 157/78 (104) 93 Room Air 05/04/18 00:05 Room Air 05/03/18 22:45 37.0 91 16 162/85 (110) 92 Room Air Notes Mental Status: alert / awake / arousable, participated in evaluation Pt Amnestic to Procedure: Yes Nausea / Vomiting: adequately controlled Pain: adequately controlled Airway Patency, RR, SpO2: stable & adequate BP & HR: stable & adequate Hydration State: stable & adequate Anesthetic Complications: no major complications apparent
--- NOTE | 2018-05-04 08:14 | Medical Consult ---
Consultation Note Date of Service May 04, 2018. Consultation Note Consult Dictated #[id number]
[2018-05-04] MEDS: POLYETHYLENE (MIRALAX) 17 GM PACK PO SCH (08:35)
[2018-05-04] MEDS: DOCUSATE SODIUM 100 MG CAP PO SCH ×2 (08:35→20:59)
[2018-05-04] MEDS: PANTOprazole SOD 40 MG TAB PO SCH (08:35)
[2018-05-04] MEDS: METOPROLOL TARTRATE 25 MG TAB PO SCH ×2 (08:35→21:03)
[2018-05-04] MEDS: AMLODIPINE BESYLATE 5 MG TAB PO SCH (08:35)
[2018-05-04] MEDS: SODIUM BICARBONATE 650 MG TAB PO SCH ×3 (08:36→21:01)
[2018-05-04] MEDS: PRAVASTATIN SOD 10 MG TAB PO SCH (08:36)
[2018-05-04] MEDS: LEFLUNOMIDE 10 MG TAB PO SCH (08:36)
[2018-05-04] MEDS: MoRPHine SULFATE 4 MG/ML 1 ML CARP\\VIAL IV PRN ×3 (08:41→20:58)
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
--- NOTE | 2018-05-04 09:53 | Nephrology Progress Note ---
Nephrology Progress Note Date of Service May 04, 2018. Chief Complaint GIANCARLO / CKD Subjective Mr. Davis was seen & examined in his hospital room this morning. He complains of R knee discomfort due to his recent surgery but otherwise voices no new medical concerns. Review of Systems Constitutional: No fever Cardiovascular: No chest pain Respiratory: No dyspnea at rest Abdomen: No pain, No vomiting, No diarrhea Extremities: + problem reported (R knee discomfort due to recent surgery) A complete review of systems was performed. Pertinent positives are noted above. All other systems are negative. Vital Signs Last 8 Hrs Date Time Temp Pulse Resp B/P (MAP) Pulse Ox O2 Delivery O2 Flow Rate FiO2 05/04/18 07:39 Room Air 05/04/18 07:28 83 16 95 Room Air 05/04/18 06:49 37.2 81 18 157/78 (104) 93 Room Air Last Recorded Weight Weight (Kilograms): 200.000 Physical Exam General Appearance: no apparent distress Head: normocephalic, atraumatic Eyes: PERRL, EOMI Neck: no adenopathy Respiratory/Chest: lungs clear, no respiratory distress Cardiovascular: regular rate, rhythm, no murmur Abdomen/GI: normal bowel sounds, non tender, soft Extremities/Musculoskelatal: + pertinent finding (R knee w/ jessica bandage and drain in place) Neurologic/Psych: alert, oriented x 3 Family History Cancer Diabetes mellitus Heart disease Hypertension Lung disease Negative for CKD / ESRD Social History Marital Status: Occupation: retired . Retired. Former smoker. Laboratory Results Past 24 Hours 05/04/18 03:38 Test 05/04/18 03:38 Prothrombin Time 24.7 SECONDS (9.0-12.0) Prothromb Time International Ratio 2.4 (0.9-1.1) Anion Gap 8.0 mmol/L (3-11) Est Creatinine Clear Calc Drug Dose 71.7 ml/min Estimated GFR () 53.0 Estimated GFR (Non- 45.7 BUN/Creatinine Ratio 28.5 (10-20) Calcium Level 7.7 mg/dl (8.5-10.1) Phosphorus Level 3.1 mg/dl (2.5-4.9) Magnesium Level 2.2 mg/dl (1.8-2.4) Random Vancomycin Level 17.3 mcg/ml Allergies Coded Allergies: No Known Allergies (Unverified , 04/30/18) Medications Current Inpatient Medications Medications (Trade) Dose Ordered Sig/Sascha Route Start Time Stop Time Status Last Admin Dose Admin Acetaminophen (Tylenol Tab) 650 mg Q4H PRN PO 04/30/18 16:30 05/30/18 16:29 Al Hydrox/Mg Hydrox/Simethicone (Maalox Max Susp) 15 ml Q4H PRN PO 04/30/18 16:30 05/30/18 16:29 Magnesium Hydroxide (Milk Of Magnesia Susp) 30 ml Q12H PRN PO 04/30/18 16:30 05/30/18 16:29 Zolpidem Tartrate (Ambien Tab) 5 mg HSZ PRN PO 04/30/18 16:30 05/30/18 16:29 Ondansetron HCl (Zofran Inj) 4 mg Q6H PRN IV 04/30/18 16:30 05/30/18 16:29 Polyethylene (Miralax Powder Packet) 17 gm DAILY PRN PO 04/30/18 16:30 05/30/18 16:29 Amlodipine Besylate (Norvasc Tab) 10 mg QAM PO 05/01/18 09:00 05/31/18 08:59 05/04/18 08:35 10 MG Docusate Sodium (coLACE CAP) 100 mg BID PRN PO 04/30/18 16:45 05/30/18 16:44 Pravastatin Sodium (Pravachol Tab) 10 mg QAM PO 05/01/18 09:00 05/31/18 08:59 05/04/18 08:36 10 MG Leflunomide (Arava) 20 mg QAM PO 05/01/18 09:00 05/31/18 08:59 05/04/18 08:36 20 MG Sodium Bicarbonate (Sodium Bicarbonate Tab) 650 mg TID PO 04/30/18 21:00 05/30/18 20:59 05/04/18 08:36 650 MG Hydralazine HCl (HydrALAZINE INJ) 20 mg Q4 PRN IV. 04/30/18 16:45 05/30/18 16:44 Albuterol/ Ipratropium (Duoneb) 3 ml QIDR INH 04/30/18 20:00 05/30/18 19:59 05/04/18 07:28 3 ML Morphine Sulfate (MoRPHine SULFATE INJ) 4 mg Q6 PRN IV 04/30/18 16:45 05/14/18 16:44 05/04/18 08:41 4 MG Docusate Sodium (coLACE CAP) 100 mg BID PO 04/30/18 21:00 05/30/18 20:59 05/03/18 08:03 100 MG Polyethylene (Miralax Powder Packet) 17 gm DAILY PO 05/01/18 09:00 05/31/18 08:59 05/01/18 07:50 17 GM Bisacodyl (Dulcolax Supp) 10 mg DAILY PRN DC 05/01/18 13:00 05/31/18 12:59 Sodium Biphosphate/ Sodium Phosphate (Fleet Enema) 132 ml DAILY PRN DC 05/01/18 13:00 05/31/18 12:59 05/02/18 05:00 132 ML Lidocaine (AneCream 4%) 1 appln Q12 PRN EXT 05/01/18 13:15 05/31/18 13:14 05/01/18 13:59 1 APPLN Oxycodone HCl (Roxicodone Immediate Rel Tab) `1-2 tabs for pain 1 tab ... Q4H PRN PO 05/01/18 14:00 05/15/18 13:59 05/04/18 07:35 10 MG Metoprolol Tartrate (Lopressor Tab) 12.5 mg BID PO 05/02/18 09:00 06/01/18 08:59 05/04/18 08:35 12.5 MG Hydrocortisone Sodium Succinate 50 mg/Syringe 1 ml @ 4 mls/min Q8 IV 05/02/18 14:00 06/01/18 13:59 05/04/18 05:01 4 MLS/MIN Warfarin Sodium (Coumadin Tab) 3 mg DAILY@1600 PO 05/03/18 16:00 06/02/18 15:59 05/03/18 16:19 3 MG Ceftriaxone Sodium 1 gm/ Dextrose 50 ml @ 100 mls/hr Q24H IV 05/03/18 14:00 05/13/18 13:59 05/03/18 14:25 100 MLS/HR Levofloxacin (Levaquin Tab) 750 mg Q2D@11 PO 05/04/18 11:00 05/11/18 10:59 Vancomycin HCl 1250 mg/Sodium Chloride 275 ml @ 125 mls/hr Q18H IV 05/04/18 05:00 06/15/18 04:59 05/04/18 05:01 125 MLS/HR Vancomycin HCl (Consult) 1 ea UD PRN N/A 05/04/18 03:15 06/03/18 03:14 Impression (1) Acute kidney injury (2) Chronic kidney disease, stage III (moderate) (3) Hypertension (4) Hyperkalemia (5) Right lower lobe pneumonia (6) Rheumatoid arthritis Recommendations ACUTE KIDNEY INJURY: -- Resolved. -- Encourage oral hydration. -- Monitor PRP CHRONIC KIDNEY DISEASE: -- Baseline creatinine 1.5 (2017 outpatient records) HYPERTENSION: -- Blood pressure is acceptable at this time. Consider resuming low dose Lisinopril as outpatient ID: -- On empiric IV Rocephin & Levaquin w/ dosing as per pharmacy -- Blood cultures + for Staph Aureus -- R knee washout performed 05/02/18 -- TTE report reviewed: No valvular abnormality OTHER: -- Dr. Paul to assess lung nodule No further Nephrology evaluation indicated at this time. Will sign off. Please call if further assistance is needed.
--- NOTE | 2018-05-04 09:57 | Progress Note ---
Subjective Date of Service: May 04, 2018. Subjective pt undergoing ct chest at time of my exam. off of floor, workup in progress for lung mass. Remains with + blood cultures, 04/30, 05/01, 05/03. on mulitple abx. also found to have septic arthritis knee, s/p washout. cultures with MSSA. Blood cultures all MSSA. Echo negative. afebrile. Remains with leukocytosis but somewhat improved. creat improving. afebrile. Problem List Medical Problems: (1) Acute right MCA stroke Status: Acute (2) Aneurysm, cerebral, nonruptured Status: Acute (3) CHI (closed head injury) Status: Acute (4) Chronic anemia Status: Acute (5) Chronic kidney disease Status: Acute (6) Chronic renal failure Status: Acute (7) Hyperkalemia Status: Acute (8) Hypoxemia Status: Acute (9) Pulmonary mass Status: Acute (10) Rheumatoid arthritis Status: Acute (11) Right lower lobe pneumonia Status: Acute (12) Scalp hematoma Status: Acute (13) Scalp laceration Status: Acute (14) Supratherapeutic INR Status: Acute Objective Vital Signs Date Time Temp Pulse Resp B/P (MAP) Pulse Ox O2 Delivery O2 Flow Rate FiO2 05/04/18 07:39 Room Air 05/04/18 07:28 83 16 95 Room Air 05/04/18 06:49 37.2 81 18 157/78 (104) 93 Room Air 05/04/18 00:05 Room Air 05/03/18 22:45 37.0 91 16 162/85 (110) 92 Room Air 05/03/18 19:08 94 14 91 Room Air 05/03/18 15:56 88 18 94 Room Air 05/03/18 15:27 Room Air 05/03/18 15:10 36.9 96 18 125/85 (98) 92 Room Air 05/03/18 14:22 Room Air 05/03/18 14:10 37.0 93 18 144/69 (94) 92 Room Air 05/03/18 11:59 37.0 86 18 132/68 (89) 92 Room Air 05/03/18 11:12 86 18 92 Room Air Laboratory Results Item Value Date Time Synovial Fluid WBC 3877 /uL H 05/01/18 1615 Synovial Fluid Polynuclear WBCs % 96.2 % 05/01/18 1615 Blood Culture - Preliminary Resulted 05/03/18 0812 Blood Gram Positive Cocci Blood Culture - Preliminary Resulted 05/03/18 0810 Blood Gram Positive Cocci Blood Culture - Preliminary Resulted 05/01/18 1539 Blood Staphylococcus Aureus Blood Culture - Final Complete 05/01/18 1531 Blood Staphylococcus Aureus Blood Culture - Final Complete 04/30/18 1638 Blood Staphylococcus Aureus Blood Culture - Final Complete 04/30/18 1634 Blood Staphylococcus Aureus Last 24 Hours Test 05/04/18 03:38 Prothrombin Time 24.7 SECONDS Prothromb Time International Ratio 2.4 Sodium Level 142 mmol/L Potassium Level 4.1 mmol/L Chloride Level 110 mmol/L Carbon Dioxide Level 24 mmol/L Anion Gap 8.0 mmol/L Blood Urea Nitrogen 42 mg/dl Creatinine 1.46 mg/dl Est Creatinine Clear Calc Drug Dose 71.7 ml/min Estimated GFR () 53.0 Estimated GFR (Non- 45.7 BUN/Creatinine Ratio 28.5 Random Glucose 173 mg/dl Calcium Level 7.7 mg/dl Phosphorus Level 3.1 mg/dl Magnesium Level 2.2 mg/dl Random Vancomycin Level 17.3 mcg/ml Assessment and Plan (1) MSSA (methicillin susceptible Staphylococcus aureus) septicemia Assessment & Plan: pt will continue with rocpehin, stop additional abx. repeat cultures. await ct chest findings (2) Septic arthritis Continued [facility] stay due to: multiple IV medications needed Discharge planning: rehab hospital
--- NOTE | 2018-05-04 10:01 | DIAGNOSTIC IMAGING REPORT ---
CT SCAN OF THE CHEST WITHOUT IV CONTRAST CLINICAL HISTORY: Lung mass. COMPARISON STUDY: Chest x-ray dated 04/30/2018. Chest CT dated 03/16/2018. TECHNIQUE: CT scan of the thorax was performed from the thoracic inlet to the upper abdomen. Images are reviewed in the axial, sagittal, and coronal planes. IV contrast was not administered for this examination as per the referring clinician. A dose lowering technique was utilized adhering to the principles of ALARA. CT DOSE: 527.03 mGy.cm FINDINGS: Thyroid: Imaged portions of the thyroid gland are normal in size and attenuation. Thoracic aorta: There is mild atherosclerotic calcification of the thoracic aorta, which is normal in caliber and demonstrates bovine variant arch anatomy. Heart: The heart is enlarged and without pericardial effusion. The coronary arteries are densely calcified. There is diminished attenuation of the cardiac blood pool as compared to the myocardium suggesting anemia. Lungs and pleural spaces: Evaluation of the lung parenchyma is degraded by motion artifact. Mild emphysema is noted. There is an approximately 6 x 5 x 4 cm focus of masslike consolidation at the posterior left apex seen on image #61. There is an additional nodular component which arises inferiorly from this lesion seen on image #98 which measures 2.3 x 1.1 cm. This has modestly increased in size from 03/16/2018, and the appearance is highly concerning for neoplasm. A 1.8 cm focus of nodularity is seen at the medial right lung base on image #213. Bilateral calcified pleural plaques are unchanged and suggest asbestos-related pleural disease. There is a small right pleural effusion with patchy consolidation at the right lung base. The trachea is clear. Secretions are noted within the mainstem bronchi. Mediastinum: There is no mediastinal lymphadenopathy. Bety: Not well assessed without IV contrast. Axillae: There is no axillary lymphadenopathy. Upper abdomen: A tiny hiatal hernia is noted. A 9 mm low-attenuation nodule in the right adrenal gland meets CT criteria for a fat-containing adenoma. Skeletal structures: The skeletal structures are osteopenic. No lytic or blastic bony lesions are seen. Arthritic change is seen in both shoulders, noting calcified joint bodies on the right. IMPRESSION: 1. There is an approximately 6 x 5 x 4 cm focus of masslike consolidation at the posterior left apex with a small satellite nodule. This has modestly increased in size from 03/16/2018, and this lesion is highly concerning for neoplasm. Consider bronchoscopy for further assessment. An infectious/inflammatory process would be expected to have changed from the prior examination. 2. There is a small right pleural effusion. Patchy consolidation and nodularity at the right lung base is nonspecific and may be on an infectious/inflammatory basis. This is new from 03/16/2018. Clinical correlation will be required and attention at follow-up is recommended. 3. 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 4. No mediastinal adenopathy is identified. 5. Cardiomegaly. 6. Additional findings as above. Electronically signed by: Colby Mcmahon M.D. 05/04/2018 10:00 AM Dictated Date/Time: 05/04/2018 9:47 AM
[2018-05-04] MEDS ORDERED: LEVOFLOXACIN 750 MG TAB PO SCH (11:00)
[2018-05-04] MEDS: CEFTRIAXONE SOD INJ 1 GM in DEXTROSE 5% ADD-VANTAGE 50ML 50 ML IV SCH ×2 (13:36→14:50)
--- NOTE | 2018-05-04 15:07 | Orthopedic Progress Note ---
Orthopedic Progress Note Date of Service May 04, 2018. Subjective Post OP Day: 2 Reports: feeling well Additional Notes: continues to have knee pain but is comfortable at rest. States putting weight on the LE does cause him discomfort. No other complaints. Objective Pt looks better overall compared to the last few days. Dressings are C/D/I . Moving the right toes and ankle without discomfort. Drain continues to put out small amounts of drainage. 40 cc today so far. Date Time Temp Pulse Resp B/P (MAP) Pulse Ox O2 Delivery O2 Flow Rate FiO2 05/04/18 14:46 37.3 89 17 143/80 (101) 92 Room Air 05/04/18 11:07 87 16 93 Room Air 05/04/18 07:39 Room Air 05/04/18 07:28 83 16 95 Room Air 05/04/18 06:49 37.2 81 18 157/78 (104) 93 Room Air 05/04/18 00:05 Room Air 05/03/18 22:45 37.0 91 16 162/85 (110) 92 Room Air 05/03/18 19:08 94 14 91 Room Air 05/03/18 15:56 88 18 94 Room Air 05/03/18 15:27 Room Air 05/03/18 15:10 36.9 96 18 125/85 (98) 92 Room Air Laboratory Results 24 Hours: Test 05/04/18 03:38 Prothromb Time International Ratio 2.4 Prothrombin Time 24.7 SECONDS Additional Notes: RUN DATE: 05/04/18 [facility] [address] LAB PAGE 1 RUN TIME: 1209 Specimen Inquiry PATIENT: DENIS PEÑA LOC: AR U # : [id number] AGE/SX: 77/M ROOM: [facility] REG : 04/30/[address]: Al Salgado M : 1940 BED: 2 DIS : STATUS: ADM IN TLOC: SPEC #: [id number] BE: 05/01/18 STATUS: RES REQ #: [id number] RECD: 05/01/[address] [facility] [address]: Mehrdad Ellison D.O. SOURCE: ASP-OTHER ENTR: 05/01/[address] [facility] DR: Tyler Sethi MD SPDESC: KNEE RIGHT Emery Dash D.O. Donelan, Stephen M., M.D. Lin, Daniel Y., MD , PhD Marily Wakefield MD ORDERED: AER/LENORE CULTSMR COMMENTS: Has Specimen Been Obtained/Collected? Y Procedure Result Verified Site GRAM STAIN Final 05/01/18-1728 RESULT MANY POLYS MODERATE GRAM POSITIVE COCCI IN CLUSTERS OR AER/LENORE CULT Preliminary 05/04/18-1209 Organism 1 STAPHYLOCOCCUS AUREUS QUANITY FEW SENS SENSITIVITY TO FOLLOW ANAS NO ANAEROBES ISOLATED. 1. STAPHYLOCOCCUS AUREUS Target Route Dose RX AB Cost M.I.C. IQ ------ ----- ------ -- ------ -------- - ------ TRIMET/SULFA S <=0.5/ 9.5 * OXACILLIN S 0.5 VANCOMYCIN S 2 ERYTHROMYCIN S <=0.5 TETRACYCLINE S <=4 CLINDAMYCIN S <=0.5 DAPTOMYCIN S 1 S = SENSITIVE I = INTERMEDIATE R = RESISTANT Assessment & Plan Assessment: POD 2 s/p I&D Right Septic Knee Plan: PT/OT - WBAT RLE; Gentle ROM as tolerated. Continue IV antibx as per ID/Med Team Keep dressing/drain intact until tomorrow. Inhouse Planning Pain Management: Morphine, Oxy IR DVT Prophylaxis: TEDs, SCDs, Coumadin
[2018-05-04] MEDS: ACETAMINOPHEN 325 MG TAB PO PRN (15:45)
[2018-05-04] MEDS: WARFARIN SOD 1 MG TAB PO SCH (15:46)
--- NOTE | 2018-05-04 17:35 | Progress Note ---
Subjective Date of Service: May 04, 2018. Subjective pt has no complaints, daughter is at the bedside and questions answered, 25 minutes spent counselling patient and daughter Problem List Medical Problems: (1) Acute right MCA stroke Status: Acute (2) Aneurysm, cerebral, nonruptured Status: Acute (3) CHI (closed head injury) Status: Acute (4) Chronic anemia Status: Acute (5) Chronic kidney disease Status: Acute (6) Chronic renal failure Status: Acute (7) Hyperkalemia Status: Acute (8) Hypoxemia Status: Acute (9) Pulmonary mass Status: Acute (10) Rheumatoid arthritis Status: Acute (11) Right lower lobe pneumonia Status: Acute (12) Scalp hematoma Status: Acute (13) Scalp laceration Status: Acute (14) Supratherapeutic INR Status: Acute Review of Systems Constitutional: + weakness, + fatigue, No fever, No chills Respiratory: No cough, No shortness of breath Cardiac: + edema, No chest pain, No orthopnea Abdomen: No pain, No nausea, No vomiting, No diarrhea Psychiatric: + depression symptoms, No anxiety Objective Vital Signs Date Time Temp Pulse Resp B/P (MAP) Pulse Ox O2 Delivery O2 Flow Rate FiO2 05/04/18 15:29 Room Air 05/04/18 15:23 85 16 93 Room Air 05/04/18 14:46 37.3 89 17 143/80 (101) 92 Room Air 05/04/18 11:07 87 16 93 Room Air 05/04/18 07:39 Room Air 05/04/18 07:28 83 16 95 Room Air 05/04/18 06:49 37.2 81 18 157/78 (104) 93 Room Air 05/04/18 00:05 Room Air 05/03/18 22:45 37.0 91 16 162/85 (110) 92 Room Air 05/03/18 19:08 94 14 91 Room Air Physical Exam General Appearance: WD/WN, + mild distress Eyes: normal inspection, sclerae normal Neck: supple, trachea midline Respiratory/Chest: chest non-tender, lungs clear, normal breath sounds Cardiovascular: + systolic murmur, + irregularly irregular Abdomen: normal bowel sounds, soft Laboratory Results Last 24 Hours Test 05/04/18 03:38 Prothrombin Time 24.7 SECONDS Prothromb Time International Ratio 2.4 Sodium Level 142 mmol/L Potassium Level 4.1 mmol/L Chloride Level 110 mmol/L Carbon Dioxide Level 24 mmol/L Anion Gap 8.0 mmol/L Blood Urea Nitrogen 42 mg/dl Creatinine 1.46 mg/dl Est Creatinine Clear Calc Drug Dose 71.7 ml/min Estimated GFR () 53.0 Estimated GFR (Non- 45.7 BUN/Creatinine Ratio 28.5 Random Glucose 173 mg/dl Calcium Level 7.7 mg/dl Phosphorus Level 3.1 mg/dl Magnesium Level 2.2 mg/dl Random Vancomycin Level 17.3 mcg/ml Assessment and Plan 77-year-old white male admitted on April 30, 2018 with pneumonia possible sepsis , bacteremia possible from right knee infection, and severe hyperkalemia, Possible hospital-acquired pneumonia patient stating [facility] and was discharged on April 05, 2018 Knee and blood cultures are concerning for MSSA, will require 6 weeks of Iv antibiotics once blood cultures are negative will insert PICC line Right knee septic arthritis, lateral and medial meniscus tears, synovitis, partial anterior cruciate ligament tear s/p Right Knee Arthroscopic Irrigation and Debridement, partial medial and lateral menisectomy, debridement ACL, synovectomy by Dr. Bertha Ellison 05/02 WBAT RLE; Gentle ROM as tolerated. MSSA bacteremia, 2 out of 2, which is in the same identity as from the culture of aspiration of fluid positive, discontinue vancomycin, repeat cultures sent Is on Rocephin IV after discussed with infectious disease, f/u infectious disease input for the length of IV antibiotic for septic arthritis and MSSA bacteremia Severe hyperkalemia on admission, resolved Lung Mass with history of previous, Possible pneumonia upon admission, was seen by Ct surgery, Repeat Ct of chest shows some increase since 03/16, Dr Paul will organize care once antibiotic treatment administered and gain tissue biopsy Acute on chronic kidney disease stage III. Improving Coumadin coaulopahty with INR is 6.9 upon admission, s/p 1 dose of vitamin K, restarted oral Coumadin, With history of pulmonary embolism/afib . History of atrial fibrillation, on Coumadin. hx of Rheumatoid arthritis, is on oral steroid prior to admission, has been on hydrocortisone IV, resume po Severe constipation, will order suppository and enema Continued [facility] stay due to: multiple IV medications needed Discharge planning: rehab hospital
--- NOTE | 2018-05-04 19:38 | SURGICAL CONSULTATION ---
DATE OF CONSULTATION: 05/04/2018 Mr. Davis was seen today in consultation. Ms. Davis has a complicated history including a recent cerebrovascular accident. He also has a mass, which was noted in his left upper lobe. I am quite concerned about the appearance of this mass. I believe this probably does represent a malignancy. He had a CT scan performed on 03/16/2018 when he had his cerebrovascular accident. Today, he had a repeat CT scan and this mass-like area in the left apex appears to be not only larger, but there is also an area what appeared to be a small satellite lesion. He really does not have much in the way of lymphadenopathy. The patient presented with a septic arthritis of his right knee. He has been treated with antibiotics and has defervesced. Dr. Ellison took him to the operating room 48 hours ago and performed an arthroscopic irrigation and debridement with partial meniscectomy with debridement of the ACL and synovectomy. It should be noted the patient was septicemic with methicillin-sensitive Staph aureus in his blood, which is similar to the right knee aspirate and are both pansensitive. Unfortunately, another set of blood cultures done 24 hours ago was still positive, although he appears to have defervesced. His is on room air. He did have a mild temperature elevation to 37.3 today. It should be noted that his white count upon presentation was as high as 18,210, which is down to 14,100 yesterday. I discussed his case with Dr. Salgado. 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 He is a complicated patient with a methicillin-sensitive septicemia with septic right knee joint. In addition, he has had a recent cerebrovascular accident. It has been unclear to me exactly what happened in [place] when he was transferred down. He still has some weakness on his left side, but states he is much better. I will discuss this with anesthesia, but I would like to perform an endobronchial ultrasound as well as a navigational bronchoscopy to biopsy these areas. It appears to me that the patient may be resectable, but we still have some workup to do and he has to recover from the recent insults that he has suffered. We will continue to follow along.
[2018-05-05] VITALS (10 sets, daily range): BP systolic 153–162; BP diastolic 78–82; PULSE 80–90; TEMP 36.9–37.1; O2SAT 90–96
[2018-05-05] MEDS: HYDROCORTISONE IV 50 MG in SYRINGE 0 ML IV SCH ×3 (05:31→22:19)
[2018-05-05] MEDS: ALBUT/IPRATROP 3MG/0.5MG NEB 3 ML VIAL INH SCH ×4 (07:13→19:08)
[2018-05-05 07:56] LABS: CALCIUM 8.1 mg/dl (8.5-10.1); CREATININE 1.47 mg/dl (0.60-1.40); POTASSIUM 3.8 mmol/L (3.5-5.1)
--- NOTE | 2018-05-05 08:12 | Progress Note ---
Subjective Date of Service: May 05, 2018. Subjective this pt has no complaints and looks improved, the pt kandace is at bedside and all questions answered Problem List Medical Problems: (1) Acute right MCA stroke Status: Acute (2) Aneurysm, cerebral, nonruptured Status: Acute (3) CHI (closed head injury) Status: Acute (4) Chronic anemia Status: Acute (5) Chronic kidney disease Status: Acute (6) Chronic renal failure Status: Acute (7) Hyperkalemia Status: Acute (8) Hypoxemia Status: Acute (9) Pulmonary mass Status: Acute (10) Rheumatoid arthritis Status: Acute (11) Right lower lobe pneumonia Status: Acute (12) Scalp hematoma Status: Acute (13) Scalp laceration Status: Acute (14) Supratherapeutic INR Status: Acute Review of Systems Constitutional: + weakness, + fatigue, No fever, No chills Respiratory: No cough, No shortness of breath, No dyspnea on exertion Cardiac: No chest pain, No edema Abdomen: No pain, No nausea, No vomiting, No diarrhea Musculoskeletal: No joint pain, No muscle pain Neurologic: + paralysis, + weakness Psychiatric: No depression symptoms, No anhedonism Objective Vital Signs Date Time Temp Pulse Resp B/P (MAP) Pulse Ox O2 Delivery O2 Flow Rate FiO2 05/05/18 07:53 36.9 90 20 162/82 (108) 91 Room Air 05/05/18 07:15 85 16 90 Room Air 05/05/18 00:25 Room Air 05/04/18 23:02 36.9 93 17 150/85 (106) 94 Room Air 05/04/18 18:54 88 16 95 Room Air 05/04/18 15:29 Room Air 05/04/18 15:23 85 16 93 Room Air 05/04/18 14:46 37.3 89 17 143/80 (101) 92 Room Air 05/04/18 11:07 87 16 93 Room Air Physical Exam General Appearance: WD/WN, + mild distress Eyes: normal inspection, sclerae normal Neck: supple, no JVD, no carotid bruits Respiratory/Chest: chest non-tender, lungs clear Cardiovascular: + systolic murmur, + irregularly irregular Abdomen: normal bowel sounds, non tender, soft Neurologic/Psychiatric: alert, oriented x 3 Laboratory Results Last 24 Hours Test 05/05/18 06:41 Sodium Level 141 mmol/L Potassium Level 3.8 mmol/L Chloride Level 106 mmol/L Carbon Dioxide Level 28 mmol/L Anion Gap 7.0 mmol/L Blood Urea Nitrogen 42 mg/dl Creatinine 1.47 mg/dl Est Creatinine Clear Calc Drug Dose 71.2 ml/min Estimated GFR () 52.6 Estimated GFR (Non- 45.4 BUN/Creatinine Ratio 28.2 Random Glucose 129 mg/dl Calcium Level 8.1 mg/dl Assessment and Plan 77-year-old white male admitted on April 30, 2018 with pneumonia possible sepsis , bacteremia possible from right knee infection, and severe hyperkalemia, Possible hospital-acquired pneumonia patient stating [facility] and was discharged on April 05, 2018 Knee and blood cultures are concerning for MSSA, will require 6 weeks of Iv antibiotics once blood cultures are negative will insert PICC line Right knee septic arthritis, lateral and medial meniscus tears, synovitis, partial anterior cruciate ligament tear s/p Right Knee Arthroscopic Irrigation and Debridement, partial medial and lateral meniscectomy, debridement ACL, synovectomy by Dr. Bertha Ellison 05/02 WBAT RLE; Gentle ROM as tolerated. MSSA bacteremia, blood cultures and culture of aspiration of fluid positive, , repeat cultures sent once again Is on Rocephin IV after discussed with infectious disease, infectious disease input feels 6 week total length of IV antibiotic for septic arthritis and MSSA bacteremia, however will need negative cultures to have picc line placed Severe hyperkalemia on admission, resolved Lung Mass with history of previous, Possible pneumonia upon admission, was seen by Ct surgery, Repeat Ct of chest shows some increase since 03/16, Dr Paul will consider bronchoscopy this week to gain tissue biopsy Acute on chronic kidney disease stage III. Continues to be improving Coumadin coagulopathy with INR is 6.9 upon admission, s/p 1 dose of vitamin K, restarted oral Coumadin, With history of pulmonary embolism/afib, now will have ro reduce dose and follow INr . History of atrial fibrillation, on Coumadin. seem to be having paroxysmal runs of afib but is rate controlled and asymptomatic hx of Rheumatoid arthritis, is on oral steroid prior to admission, has been on hydrocortisone IV, resume po Severe constipation, suppository and enema Continued [facility] stay due to: multiple IV medications needed Discharge planning: rehab hospital
[2018-05-05] MEDS: DOCUSATE SODIUM 100 MG CAP PO SCH ×2 (08:46→21:00)
[2018-05-05] MEDS: POLYETHYLENE (MIRALAX) 17 GM PACK PO SCH ×2 (08:46→21:00)
[2018-05-05] MEDS: OXYCODONE HCL IR 5 MG TAB (IMMEDIATE RELEASE) PO PRN ×3 (08:47→18:01)
[2018-05-05] MEDS: METOPROLOL TARTRATE 25 MG TAB PO SCH ×2 (08:48→22:22)
[2018-05-05] MEDS: PRAVASTATIN SOD 10 MG TAB PO SCH (08:49)
[2018-05-05] MEDS: LEFLUNOMIDE 10 MG TAB PO SCH (08:49)
[2018-05-05] MEDS: AMLODIPINE BESYLATE 5 MG TAB PO SCH (08:49)
[2018-05-05] MEDS: SODIUM BICARBONATE 650 MG TAB PO SCH ×3 (08:50→22:19)
--- NOTE | 2018-05-05 10:50 | Orthopedic Progress Note ---
Orthopedic Progress Note Date of Service May 05, 2018. Subjective Post OP Day: 3 Reports: feeling well Additional Notes: Knee pain is about the same. No new complaints. Objective calves soft nontender, N/V intact, A&O x3, toes mobile dressings removed, drain taken out. Small amount of yellow serous drainage after drain removed. No erythema. No overt swelling. Wounds benign. Able to do gentle ROM with the knee with mild pain. Date Time Temp Pulse Resp B/P (MAP) Pulse Ox O2 Delivery O2 Flow Rate FiO2 05/05/18 08:34 91 Room Air 05/05/18 07:53 36.9 90 20 162/82 (108) 91 Room Air 05/05/18 07:15 85 16 90 Room Air 05/05/18 00:25 Room Air 05/04/18 23:02 36.9 93 17 150/85 (106) 94 Room Air 05/04/18 18:54 88 16 95 Room Air 05/04/18 15:29 Room Air 05/04/18 15:23 85 16 93 Room Air 05/04/18 14:46 37.3 89 17 143/80 (101) 92 Room Air 05/04/18 11:07 87 16 93 Room Air Assessment & Plan Assessment: POD 3 s/p I&D Right Septic Knee Plan: PT/OT - WBAT RLE; Gentle ROM as tolerated. Continue IV antibx as per ID/Med Team No further surgery at this time. As per Med Service. Inhouse Planning Pain Management: Morphine, Oxy IR DVT Prophylaxis: TEDs, SCDs, Coumadin
--- NOTE | 2018-05-05 10:54 | Consultant Recommendations ---
Swimming Coach Recommendations Date of Service May 05, 2018. Swimming Coach Recommendations ACTIVITY RECOMMENDATIONS: * You may walk on the leg with or without crutches as comfort permits. * Bending of the knee should start at once. * Do not shower for 48 hours following surgery. SPECIAL CARE INSTRUCTIONS: * You may cleanse the skin adjacent to the small wounds with soap and water at the time of the first dressing change. * The application of an ice bag to the front and sides of the knee will decrease swelling and discomfort for the first 48 hours. * The small incisions may be sore and develop bruising. This bruising does not require any special care. SPECIAL PRECAUTIONS: * If you experience unusual pain unrelieved by prescriptions, temperature elevation (100 degrees F. or above) or progressive swelling or bleeding, you should contact our office at for further evaluation. * You may have been prescribed pain medication. If you experience nausea and/or fine skin rash, discontinue this medication and contact our office at for an alternate medication. DRESSING: * Dressing should be comfortable and absorb any leakage of fluid and/or blood. * The dressing may become moist or bloodstained. Change regularly if this happens. * Once the wounds are dry, bandaids can be placed over the small surgical incisions. * Bandaids may be used over next several days as needed and can be discontinued when there is not further drainage from the wounds. FOLLOW UP VISIT: If appointment is not already scheduled: Please call [facility] [place] to make a follow-up appointment with Dr Ellison in 10-14 days from the day of your surgery at .
[2018-05-05] MEDS: ACETAMINOPHEN 325 MG TAB PO PRN ×2 (12:25→16:46)
--- NOTE | 2018-05-05 13:05 | Progress Note ---
Subjective Date of Service: May 05, 2018. Subjective Pt evaluation today including: conversation w/ patient, conversation w/ family , physical exam, chart review, lab review, conversation w/ agricultural consultant pt seen in followup, family at bedside, scheduled for lung biopsy once infection cleared per family secondary to new lesions. no cough or sob. fever resolved. tolerating abx, all blood cultures remain + MSSA. + knee pain, improving. no n/v/d. eating lunch on my exam. all remaining ros reviewed and are negative. Problem List Medical Problems: (1) Acute right MCA stroke Status: Acute (2) Aneurysm, cerebral, nonruptured Status: Acute (3) CHI (closed head injury) Status: Acute (4) Chronic anemia Status: Acute (5) Chronic kidney disease Status: Acute (6) Chronic renal failure Status: Acute (7) Hyperkalemia Status: Acute (8) Hypoxemia Status: Acute (9) Pulmonary mass Status: Acute (10) Rheumatoid arthritis Status: Acute (11) Right lower lobe pneumonia Status: Acute (12) Scalp hematoma Status: Acute (13) Scalp laceration Status: Acute (14) Supratherapeutic INR Status: Acute Objective Vital Signs Date Time Temp Pulse Resp B/P (MAP) Pulse Ox O2 Delivery O2 Flow Rate FiO2 05/05/18 12:32 37.1 82 20 95 Room Air 05/05/18 11:05 81 16 91 Room Air 05/05/18 08:34 91 Room Air 05/05/18 07:53 36.9 90 20 162/82 (108) 91 Room Air 05/05/18 07:15 85 16 90 Room Air 05/05/18 00:25 Room Air 05/04/18 23:02 36.9 93 17 150/85 (106) 94 Room Air 05/04/18 18:54 88 16 95 Room Air 05/04/18 15:29 Room Air 05/04/18 15:23 85 16 93 Room Air 05/04/18 14:46 37.3 89 17 143/80 (101) 92 Room Air Physical Exam General Appearance: WD/WN, no apparent distress Eyes: normal inspection, EOMI Neck: supple Respiratory/Chest: lungs clear, normal breath sounds, no respiratory distress Cardiovascular: regular rate, rhythm, no edema Abdomen: non tender, soft Extremities: non-tender, no pedal edema Neurologic/Psychiatric: alert, oriented x 3 Skin: normal color Comments: right knee dressing c/d/i, non tender Laboratory Results Item Value Date Time Blood Culture - Preliminary Resulted 05/04/18 1003 Blood Gram Positive Cocci Last 24 Hours Test 05/05/18 06:41 Sodium Level 141 mmol/L Potassium Level 3.8 mmol/L Chloride Level 106 mmol/L Carbon Dioxide Level 28 mmol/L Anion Gap 7.0 mmol/L Blood Urea Nitrogen 42 mg/dl Creatinine 1.47 mg/dl Est Creatinine Clear Calc Drug Dose 71.2 ml/min Estimated GFR () 52.6 Estimated GFR (Non- 45.4 BUN/Creatinine Ratio 28.2 Random Glucose 129 mg/dl Calcium Level 8.1 mg/dl Assessment and Plan (1) MSSA (methicillin susceptible Staphylococcus aureus) septicemia Assessment & Plan: pt will continue with rocpehin, . repeat cultures - remain + await biopsy findings. (2) Septic arthritis Continued [facility] stay due to: multiple IV medications needed Discharge planning: rehab hospital
[2018-05-05] MEDS: CEFTRIAXONE SOD INJ 1 GM in DEXTROSE 5% ADD-VANTAGE 50ML 50 ML IV SCH (13:28)
--- NOTE | 2018-05-05 14:02 | SURGERY PROGRESS NOTE ---
DATE: 05/05/2018 Mr. Davis was seen today with his daughter and family. He is sitting up in a chair. He continues to be awake and alert. He really has had no fevers, with temperature of 37.1; however, his blood cultures continue to be positive and that is concerning. Dr. Gates is following. At this point, I explained to the family that we would like to proceed with a bronchoscopy; however, I need him to be more stable than he is now. I would like for him to have negative blood cultures. We explained that I think we are probably dealing with a malignant process in his left upper lobe, but at this point, he needs to get over this acute process before we proceed with anything definitive. SEVERIANO
[2018-05-05] MEDS: WARFARIN SOD 2.5 MG TAB PO SCH (17:57)
[2018-05-06] VITALS (8 sets, daily range): BP systolic 117–158; BP diastolic 68–84; PULSE 76–91; TEMP 36.6–37; O2SAT 93–97
[2018-05-06] MEDS: OXYCODONE HCL IR 5 MG TAB (IMMEDIATE RELEASE) PO PRN ×2 (05:42→13:37)
[2018-05-06] MEDS: HYDROCORTISONE IV 50 MG in SYRINGE 0 ML IV SCH ×3 (05:42→22:27)
[2018-05-06 06:38] LABS: INR 2.4 (0.9-1.1)
--- NOTE | 2018-05-06 07:47 | DIAGNOSTIC IMAGING REPORT ---
TWO VIEW CHEST CLINICAL HISTORY: Lung mass. FINDINGS: AP and lateral chest radiographs are compared to study dated 04/30/2018 and correlated with chest CT dated 05/04/2018. The AP views degraded by patient rotation. The heart is enlarged and there is atherosclerotic calcification of the thoracic aorta. The pulmonary vasculature is noncongested. Calcified pleural plaques are similar to previous. A left apical pulmonary lesion has not significant changed, and measures at least 5 cm. Chronic interstitial thickening is unchanged. No pleural effusion is seen. There is no pneumothorax. The skeletal structures are osteopenic. The bony thorax appears intact. IMPRESSION: 1. A left apical pulmonary lesion is unchanged from previous and measures at least 5 cm. This remains highly concerning for neoplasm. 2. Calcified pleural plaques are similar to previous. 3. No new focus of airspace consolidation or pleural effusion is identified. Electronically signed by: Colby Mcmahon M.D. 05/06/2018 7:46 AM Dictated Date/Time: 05/06/2018 7:44 AM
[2018-05-06] MEDS: ALBUT/IPRATROP 3MG/0.5MG NEB 3 ML VIAL INH SCH ×4 (08:00→19:49)
[2018-05-06] MEDS: DOCUSATE SODIUM 100 MG CAP PO SCH ×2 (09:00→20:56)
[2018-05-06] MEDS: POLYETHYLENE (MIRALAX) 17 GM PACK PO SCH ×2 (09:00→20:55)
--- NOTE | 2018-05-06 09:50 | Orthopedic Progress Note ---
Orthopedic Progress Note Date of Service May 06, 2018. Subjective Post OP Day: 4 Reports: feeling well, pain controlled w PO medications, Denies: complaints, chest pain, SOB, nausea / vomiting, light headedness, calf pain Objective calves soft nontender, N/V intact, capillary refill less than 2 sec., dressing C /D/I, incision C/D/I, A&O x3, toes mobile portals c/d/i, no drainage, no erythema. sutures in tact. Neg homans, no calf tenderness. Date Time Temp Pulse Resp B/P (MAP) Pulse Ox O2 Delivery O2 Flow Rate FiO2 05/06/18 08:30 93 Room Air 05/06/18 07:10 36.6 76 16 158/84 (108) 93 Room Air 05/05/18 22:52 37.0 89 16 156/81 (106) 96 Room Air 05/05/18 22:15 84 155/79 (104) 05/05/18 19:30 Room Air 05/05/18 19:09 85 16 93 Room Air 05/05/18 15:20 Room Air 05/05/18 15:04 80 16 92 Room Air 05/05/18 14:56 36.9 86 17 153/78 (103) 94 Room Air 05/05/18 12:32 37.1 82 20 95 Room Air 05/05/18 11:05 81 16 91 Room Air Laboratory Results 24 Hours: Test 05/06/18 05:24 Prothromb Time International Ratio 2.4 Prothrombin Time 24.8 SECONDS Assessment & Plan Assessment: POD 4 s/p I&D Right Septic Knee Plan: PT/OT - WBAT RLE; Gentle ROM as tolerated. Continue IV antibx as per ID/Med Team No further surgery at this time. As per Med Service. Disposition rehab likely. Ortho will sign off, please see ortho D/C instructions, thank you. Inhouse Planning Pain Management: Morphine, Oxy IR DVT Prophylaxis: TEDs, SCDs, Coumadin
[2018-05-06] MEDS: SODIUM BICARBONATE 650 MG TAB PO SCH ×3 (09:59→20:55)
[2018-05-06] MEDS: AMLODIPINE BESYLATE 5 MG TAB PO SCH (09:59)
[2018-05-06] MEDS: PRAVASTATIN SOD 10 MG TAB PO SCH (10:00)
[2018-05-06] MEDS: LEFLUNOMIDE 10 MG TAB PO SCH (10:00)
[2018-05-06] MEDS: METOPROLOL TARTRATE 25 MG TAB PO SCH ×2 (10:00→20:55)
[2018-05-06] MEDS: CEFTRIAXONE SOD INJ 1 GM in DEXTROSE 5% ADD-VANTAGE 50ML 50 ML IV SCH (13:16)
--- NOTE | 2018-05-06 13:56 | Progress Note ---
Subjective Date of Service: May 06, 2018. Subjective Pt evaluation today including: conversation w/ patient, physical exam, chart review, lab review pt seen in followup, tolerating abx. repeat blood cultures pending. still with some knee pain ,no f/c. no cough . sob. awaiting bronch with biopsy, concerned for lung malignancy. no abd pain, no n/v/d. all remaining ros reviewed and are negative. Problem List Medical Problems: (1) Acute right MCA stroke Status: Acute (2) Aneurysm, cerebral, nonruptured Status: Acute (3) CHI (closed head injury) Status: Acute (4) Chronic anemia Status: Acute (5) Chronic kidney disease Status: Acute (6) Chronic renal failure Status: Acute (7) Hyperkalemia Status: Acute (8) Hypoxemia Status: Acute (9) Pulmonary mass Status: Acute (10) Rheumatoid arthritis Status: Acute (11) Right lower lobe pneumonia Status: Acute (12) Scalp hematoma Status: Acute (13) Scalp laceration Status: Acute (14) Supratherapeutic INR Status: Acute Objective Vital Signs Date Time Temp Pulse Resp B/P (MAP) Pulse Ox O2 Delivery O2 Flow Rate FiO2 05/06/18 11:13 90 18 93 Room Air 05/06/18 08:30 93 Room Air 05/06/18 08:00 Room Air 05/06/18 07:10 36.6 76 16 158/84 (108) 93 Room Air 05/05/18 22:52 37.0 89 16 156/81 (106) 96 Room Air 05/05/18 22:15 84 155/79 (104) 05/05/18 19:30 Room Air 05/05/18 19:09 85 16 93 Room Air 05/05/18 15:20 Room Air 05/05/18 15:04 80 16 92 Room Air 05/05/18 14:56 36.9 86 17 153/78 (103) 94 Room Air Physical Exam General Appearance: WD/WN, no apparent distress Eyes: normal inspection, EOMI Neck: supple Respiratory/Chest: normal breath sounds, no respiratory distress Cardiovascular: regular rate, rhythm, no edema Abdomen: non tender, soft Extremities: non-tender, no pedal edema Neurologic/Psychiatric: alert, oriented x 3 Skin: normal color Laboratory Results Item Value Date Time Blood Culture - Preliminary Resulted 05/04/18 1003 Blood Staphylococcus Aureus Last 24 Hours Test 8/8/18 05:24 Prothrombin Time 24.8 SECONDS Prothromb Time International Ratio 2.4 Assessment and Plan (1) MSSA (methicillin susceptible Staphylococcus aureus) septicemia Assessment & Plan: pt will continue with rocpehin, . repeat cultures - remain + await biopsy findings. (2) Septic arthritis Continued [facility] stay due to: multiple IV medications needed Discharge planning: rehab hospital
[2018-05-06] MEDS: WARFARIN SOD 2.5 MG TAB PO SCH (15:21)
--- NOTE | 2018-05-06 15:36 | Progress Note ---
Subjective Date of Service: May 06, 2018. Subjective this pt is doing well, likely for bronchoscopy and tissue biopsy this week Problem List Medical Problems: (1) Acute right MCA stroke Status: Acute (2) Aneurysm, cerebral, nonruptured Status: Acute (3) CHI (closed head injury) Status: Acute (4) Chronic anemia Status: Acute (5) Chronic kidney disease Status: Acute (6) Chronic renal failure Status: Acute (7) Hyperkalemia Status: Acute (8) Hypoxemia Status: Acute (9) Pulmonary mass Status: Acute (10) Rheumatoid arthritis Status: Acute (11) Right lower lobe pneumonia Status: Acute (12) Scalp hematoma Status: Acute (13) Scalp laceration Status: Acute (14) Supratherapeutic INR Status: Acute Review of Systems Constitutional: No fever, No chills, No weakness, No fatigue Respiratory: No cough, No wheezing Cardiac: + edema, No chest pain Abdomen: No pain, No nausea, No diarrhea Musculoskeletal: + joint pain, + muscle pain Male : No dysuria, No urinary frequency Neurologic: No memory loss, No paralysis, No weakness Psychiatric: No depression symptoms, No anxiety Objective Vital Signs Date Time Temp Pulse Resp B/P (MAP) Pulse Ox O2 Delivery O2 Flow Rate FiO2 05/06/18 15:08 88 18 97 Room Air 05/06/18 15:02 37.0 91 17 117/68 (84) 94 Room Air 05/06/18 11:13 90 18 93 Room Air 05/06/18 08:30 93 Room Air 05/06/18 08:00 Room Air 05/06/18 07:10 36.6 76 16 158/84 (108) 93 Room Air 05/05/18 22:52 37.0 89 16 156/81 (106) 96 Room Air 05/05/18 22:15 84 155/79 (104) 05/05/18 19:30 Room Air 05/05/18 19:09 85 16 93 Room Air Physical Exam General Appearance: WD/WN, + mild distress Eyes: normal inspection, sclerae normal Neck: supple, no JVD Respiratory/Chest: chest non-tender, lungs clear, normal breath sounds Cardiovascular: regular rate, rhythm, no murmur Abdomen: normal bowel sounds, non tender, soft Extremities: + pedal edema, + swelling Neurologic/Psychiatric: alert, oriented x 3 Laboratory Results Last 24 Hours Test 05/06/18 05:24 Prothrombin Time 24.8 SECONDS Prothromb Time International Ratio 2.4 Assessment and Plan 77-year-old white male admitted on April 30, 2018 with pneumonia possible sepsis , bacteremia possible from right knee infection, and severe hyperkalemia, Possible hospital-acquired pneumonia patient stating [facility] and was discharged on April 05, 2018 Knee and blood cultures are concerning for MSSA, will require 6 weeks of Iv antibiotics once blood cultures are negative will insert PICC line Right knee septic arthritis, lateral and medial meniscus tears, synovitis, partial anterior cruciate ligament tear s/p Right Knee Arthroscopic Irrigation and Debridement, partial medial and lateral meniscectomy, debridement ACL, synovectomy by Dr. Bertha Ellison 05/02 WBAT RLE; MSSA bacteremia, blood cultures and culture of aspiration of fluid positive, , repeat cultures sent once again Is on Rocephin IV after discussed with infectious disease, infectious disease input feels 6 week total length of IV antibiotic for septic arthritis and MSSA bacteremia, however will need negative cultures to have picc line placed Severe hyperkalemia on admission, resolved Lung Mass with history of previous, Possible pneumonia upon admission, was seen by Ct surgery, Repeat Ct of chest shows some increase since 03/16, Dr Paul will consider bronchoscopy this week to gain tissue biopsy. Acute on chronic kidney disease stage III. Continues to be improving Coumadin coagulopathy with INR is 6.9 upon admission, s/p 1 dose of vitamin K, restarted oral Coumadin, With history of pulmonary embolism/afib, now will have ro reduce dose and follow INr . History of atrial fibrillation, on Coumadin. seem to be having paroxysmal runs of afib but is rate controlled and asymptomatic hx of Rheumatoid arthritis, is on oral steroid prior to admission, has been on hydrocortisone IV, resume po Severe constipation, suppository and enema Continued [facility] stay due to: multiple IV medications needed Discharge planning: rehab hospital
--- NOTE | 2018-05-06 17:48 | SURGERY PROGRESS NOTE ---
DATE: 05/06/2018 Mr. Davis was seen today. He looks fine. Unfortunately, he continues to have growth from his blood cultures from as recently as yesterday. He still has blood cultures pending. He has been afebrile. His chest x-ray looks great today and he sounds fine. I am a bit concerned about his blood cultures. I believe we probably have a neoplasm in his left upper lobe. It is important to remember this man had a septic joint in his right knee and also had a recent cerebrovascular accident with a persistent left-sided weakness. I am not eager to offer him an operation; however, it appears that he is probably a surgical candidate radiographically and lung function paez. I am more concerned about his other systems. We will continue to follow him along closely. If his blood cultures have no growth from yesterday then we will offer him a bronchoscopy on Friday.
[2018-05-07] VITALS (9 sets, daily range): BP systolic 120–168; BP diastolic 75–90; PULSE 73–90; TEMP 36.6–37.1; O2SAT 92–94
[2018-05-07] MEDS: HYDROCORTISONE IV 50 MG in SYRINGE 0 ML IV SCH (05:44)
[2018-05-07] MEDS: ALBUT/IPRATROP 3MG/0.5MG NEB 3 ML VIAL INH SCH ×4 (07:08→20:07)
[2018-05-07] MEDS ORDERED: PHYTONADIONE INJ 2.5 MG in SODIUM CHLORIDE 0.9% 50ML 50 ML IV ONE (07:15)
--- NOTE | 2018-05-07 08:06 | SURGERY PROGRESS NOTE ---
DATE: 05/07/2018 Mr. Davis was seen today. He is about the same. He is afebrile. He is on room air. His blood cultures from 2 days ago are negative for growth. One of 2 blood cultures from 72 hours ago is positive. He has multiple issues as stated; however, I believe that performing a bronchoscopy would be helpful for our planning. I discussed this with Dr. Salgado. The patient's INR is 2.4, but we are going to get that reversed today and perform an endobronchial ultrasound with biopsy and a navigational bronchoscopy tomorrow. We had a long discussion about this today, including risks and benefits. He understands.
[2018-05-07] MEDS: POLYETHYLENE (MIRALAX) 17 GM PACK PO SCH ×2 (09:00→20:46)
[2018-05-07] MEDS: DOCUSATE SODIUM 100 MG CAP PO SCH ×2 (09:00→20:48)
[2018-05-07] MEDS: METOPROLOL TARTRATE 25 MG TAB PO SCH ×2 (09:33→20:48)
[2018-05-07] MEDS: LEFLUNOMIDE 10 MG TAB PO SCH (09:33)
[2018-05-07] MEDS: AMLODIPINE BESYLATE 5 MG TAB PO SCH (09:34)
[2018-05-07] MEDS: PRAVASTATIN SOD 10 MG TAB PO SCH (09:34)
[2018-05-07] MEDS: SODIUM BICARBONATE 650 MG TAB PO SCH ×3 (09:34→20:48)
--- NOTE | 2018-05-07 13:55 | Progress Note ---
Subjective Date of Service: May 07, 2018. Subjective this pt is in good spirits, he has agree to picc line placement and to bronchoscopy tomorrow 05/08 Problem List Medical Problems: (1) Acute right MCA stroke Status: Acute (2) Aneurysm, cerebral, nonruptured Status: Acute (3) CHI (closed head injury) Status: Acute (4) Chronic anemia Status: Acute (5) Chronic kidney disease Status: Acute (6) Chronic renal failure Status: Acute (7) Hyperkalemia Status: Acute (8) Hypoxemia Status: Acute (9) Pulmonary mass Status: Acute (10) Rheumatoid arthritis Status: Acute (11) Right lower lobe pneumonia Status: Acute (12) Scalp hematoma Status: Acute (13) Scalp laceration Status: Acute (14) Supratherapeutic INR Status: Acute Review of Systems Constitutional: + weakness, + fatigue, No fever, No chills Respiratory: No cough, No shortness of breath Cardiac: + edema, No chest pain, No PND Abdomen: No pain, No nausea, No vomiting, No diarrhea Male : No dysuria, No incontinence Neurologic: No memory loss, No weakness Psychiatric: No depression symptoms, No anxiety Objective Vital Signs Date Time Temp Pulse Resp B/P (MAP) Pulse Ox O2 Delivery O2 Flow Rate FiO2 05/07/18 07:34 37.0 90 22 168/82 (110) 92 Room Air 05/07/18 07:08 77 18 93 Room Air 05/06/18 23:40 Room Air 05/06/18 23:06 36.9 83 16 147/74 (98) 95 Room Air 05/06/18 20:52 91 118/75 (89) 05/06/18 19:49 81 18 96 Room Air 05/06/18 15:15 Room Air 05/06/18 15:08 88 18 97 Room Air 05/06/18 15:02 37.0 91 17 117/68 (84) 94 Room Air 05/06/18 11:13 90 18 93 Room Air 05/06/18 08:30 93 Room Air Physical Exam General Appearance: WD/WN, + mild distress Eyes: normal inspection, sclerae normal Neck: supple, no JVD Respiratory/Chest: chest non-tender, lungs clear, normal breath sounds Cardiovascular: regular rate, rhythm, no murmur Abdomen: normal bowel sounds, soft Extremities: + pedal edema, + swelling Neurologic/Psychiatric: alert, oriented x 3 Assessment and Plan 77-year-old white male admitted on April 30, 2018 with pneumonia possible sepsis , bacteremia possible from right knee infection, and severe hyperkalemia, Possible hospital-acquired pneumonia patient stating [facility] and was discharged on April 05, 2018 Knee and blood cultures are concerning for MSSA, will require 6 weeks of Iv antibiotics once blood cultures are negative will insert PICC line Right knee septic arthritis, lateral and medial meniscus tears, synovitis, partial anterior cruciate ligament tear s/p Right Knee Arthroscopic Irrigation and Debridement, partial medial and lateral meniscectomy, debridement ACL, synovectomy by Dr. Bertha Ellison 05/02 WBAT RLE; MSSA bacteremia, blood cultures and culture of aspiration of fluid positive, , repeat cultures sent once again and cultures from 05/05 negative Is on Rocephin IV after discussed with infectious disease, infectious disease input feels 6 week total length of IV antibiotic for septic arthritis and MSSA bacteremia, now does havenegative cultures will have picc line placed Severe hyperkalemia on admission, resolved Lung Mass with history of previous, Possible pneumonia upon admission, was seen by Ct surgery, Repeat Ct of chest shows some increase since 03/16, Dr Paul will consider bronchoscopy this week to gain tissue biopsy. Acute on chronic kidney disease stage III. Continues to be improving Coumadin coagulopathy with INR is 6.9 upon admission, s/p 1 dose of vitamin K, restarted oral Coumadin, With history of pulmonary embolism/afib, will need to reduce INR for bronchoscopy and possible biopsy 05/08 . History of atrial fibrillation, on Coumadin. seem to be having paroxysmal runs of afib but is rate controlled and asymptomatic hx of Rheumatoid arthritis, is on oral steroid prior to admission, has been on hydrocortisone IV, resume po Severe constipation, suppository and enema Continued [facility] stay due to: multiple IV medications needed Discharge planning: rehab hospital
--- NOTE | 2018-05-07 14:35 | Progress Note ---
Subjective Date of Service: May 07, 2018. Subjective Pt evaluation today including: conversation w/ patient, physical exam, chart review, lab review pt seen in followup, knee pain improved. afebrile. tolerating abx. no cough, sob , cp. for biopsy lung in am. repeat blood cultures negative to date x 2. all remaining ros reviewed and are negative. Problem List Medical Problems: (1) Acute right MCA stroke Status: Acute (2) Aneurysm, cerebral, nonruptured Status: Acute (3) CHI (closed head injury) Status: Acute (4) Chronic anemia Status: Acute (5) Chronic kidney disease Status: Acute (6) Chronic renal failure Status: Acute (7) Hyperkalemia Status: Acute (8) Hypoxemia Status: Acute (9) Pulmonary mass Status: Acute (10) Rheumatoid arthritis Status: Acute (11) Right lower lobe pneumonia Status: Acute (12) Scalp hematoma Status: Acute (13) Scalp laceration Status: Acute (14) Supratherapeutic INR Status: Acute Objective Vital Signs Date Time Temp Pulse Resp B/P (MAP) Pulse Ox O2 Delivery O2 Flow Rate FiO2 05/07/18 11:28 78 18 94 Room Air 05/07/18 08:35 92 Room Air 05/07/18 08:00 Room Air 05/07/18 07:34 37.0 90 22 168/82 (110) 92 Room Air 05/07/18 07:08 77 18 93 Room Air 05/06/18 23:40 Room Air 05/06/18 23:06 36.9 83 16 147/74 (98) 95 Room Air 05/06/18 20:52 91 118/75 (89) 05/06/18 19:49 81 18 96 Room Air 05/06/18 15:15 Room Air 05/06/18 15:08 88 18 97 Room Air 05/06/18 15:02 37.0 91 17 117/68 (84) 94 Room Air Physical Exam General Appearance: WD/WN, no apparent distress Eyes: normal inspection, EOMI Neck: supple Respiratory/Chest: lungs clear, normal breath sounds, no respiratory distress Cardiovascular: regular rate, rhythm, no edema Abdomen: non tender, soft Extremities: non-tender, no pedal edema Neurologic/Psychiatric: alert, oriented x 3 Skin: normal color Laboratory Results Item Value Date Time Blood Culture - Preliminary Resulted 05/05/18 1359 Blood NO GROWTH TO DATE. Blood Culture - Preliminary Resulted 05/05/18 1346 Blood NO GROWTH TO DATE. Assessment and Plan (1) MSSA (methicillin susceptible Staphylococcus aureus) septicemia Assessment & Plan: pt will continue with rocpehin, . repeat cultures - remain + await biopsy findings. will need 6 weeks IV rocephin - weekly cbc,cmp, esr while on abx. can follow with ID post d/c (2) Septic arthritis Continued [facility] stay due to: multiple IV medications needed Discharge planning: rehab hospital
[2018-05-07] MEDS: CEFTRIAXONE SOD INJ 1 GM in DEXTROSE 5% ADD-VANTAGE 50ML 50 ML IV SCH (14:42)
[2018-05-07 16:38] LABS: INR 1.4 (0.9-1.1)
[2018-05-08] VITALS (14 sets, daily range): BP systolic 106–178; BP diastolic 62–84; PULSE 62–108; TEMP 37–37.7; O2SAT 90–97
[2018-05-08] MEDS: OXYCODONE HCL IR 5 MG TAB (IMMEDIATE RELEASE) PO PRN ×3 (01:19→22:34)
[2018-05-08 06:48] LABS: INR 1.1 (0.9-1.1)
[2018-05-08] MEDS: ALBUT/IPRATROP 3MG/0.5MG NEB 3 ML VIAL INH SCH ×4 (07:19→20:03)
[2018-05-08] MEDS ORDERED: LIDOCAINE HCL 2% 2 ML VIAL (20MG/ML) ONE (07:43)
[2018-05-08] MEDS ORDERED: ONDANSETRON INJ 2 MG/ML 2 ML VIAL ONE (07:43)
[2018-05-08] MEDS ORDERED: FENTANYL CITRATE INJ 50 MCG/1 ML 2 ML VIAL ONE ×2 (07:43→11:26)
[2018-05-08] MEDS ORDERED: PROPOFOL IV EMULSION 10 MG/ML 20 ML VIAL ONE (07:43)
[2018-05-08] MEDS: METOPROLOL TARTRATE 25 MG TAB PO SCH ×2 (08:04→21:00)
[2018-05-08 08:30] LABS: HEMATOCRIT 25.8 % (42-52); HEMOGLOBIN 7.9 g/dL (14.0-18.0); MEAN CELL VOLUME 90.8 fL (80-100); MEAN CORPUSCULAR HEMOGLOBIN 27.8 pg (25-34); MEAN PLATELET VOLUME 9.6 fL (7.4-10.4); PLATELET COUNT 316 K/uL (130-400); RED CELL DISTRIBUTION WIDTH CV 16.4 % (11.5-14.5); RED CELL DISTRIBUTION WIDTH SD 53.8 fL (36.4-46.3); WHITE BLOOD COUNT 12.37 K/uL (4.8-10.8)
[2018-05-08 08:32] LABS: MEAN CORPUSCULAR HGB CONC 30.6 g/dl (32-36)
[2018-05-08] MEDS: POLYETHYLENE (MIRALAX) 17 GM PACK PO SCH ×2 (09:00→21:00)
[2018-05-08] MEDS: AMLODIPINE BESYLATE 5 MG TAB PO SCH (09:00)
[2018-05-08] MEDS: DOCUSATE SODIUM 100 MG CAP PO SCH ×2 (09:00→21:00)
[2018-05-08] MEDS: SODIUM BICARBONATE 650 MG TAB PO SCH ×3 (09:00→21:41)
[2018-05-08] MEDS: PRAVASTATIN SOD 10 MG TAB PO SCH (09:00)
[2018-05-08] MEDS: LEFLUNOMIDE 10 MG TAB PO SCH (09:00)
[2018-05-08] MEDS ORDERED: ROCURONIUM BROMIDE 10 MG/ML 5 ML VIAL ONE (09:56)
--- NOTE | 2018-05-08 11:11 | [facility] Post Operative Brief Note ---
Immediate Operative Summary Operative Date May 08, 2018. Pre-Operative Diagnosis Left upper lobe mass Post-Operative Diagnosis Same as preop Procedure(s) Performed Endobronchial Ultrasound with biopsy; Navigational Bronchoscopy Surgeon Dr. Paul [facility] Surgeon(s) None Estimated Blood Loss 5 ml Findings Consistent with Post-Op Diagnosis Specimens In care of respiratory. Anesthesia Type General
[2018-05-08] MEDS ORDERED: ONDANSETRON INJ 2 MG/ML 2 ML VIAL IV PRN (11:30)
[2018-05-08] MEDS ORDERED: EpHEDrine SULFATE INJ 50 MG/ML AMP IV PRN (11:30)
[2018-05-08] MEDS ORDERED: ATROPINE SULFATE 0.1 MG/ML 5ML SYR IV PRN (11:30)
[2018-05-08] MEDS: FENTANYL CITRATE INJ 50 MCG/1 ML 2 ML VIAL IV PRN ×2 (11:40→11:46)
--- NOTE | 2018-05-08 11:42 | DIAGNOSTIC IMAGING REPORT ---
CHEST ONE VIEW PORTABLE CLINICAL HISTORY: S/P EBUS COMPARISON STUDY: 2017 FINDINGS: Left apical mass is again noted. No evidence pneumothorax. Lungs otherwise are considered clear. Slight chronic interstitial prominence right base. IMPRESSION: No evidence of pneumothorax post procedure. Unchanging left apical mass. The above report was generated using voice recognition software. It may contain grammatical, syntax or spelling errors. Electronically signed by: Jericho Dawn M.D. 05/08/2018 11:41 AM Dictated Date/Time: 05/08/2018 11:40 AM
--- NOTE | 2018-05-08 11:52 | DIAGNOSTIC IMAGING REPORT ---
CHEST 1 VIEW FRONTAL CLINICAL HISTORY: NAVIGATIONAL BRONCH bronchoscopy TECHNIQUE: Image intensifier COMPARISON STUDY: None FINDINGS: 4 minutes 25 seconds image intensifier time. 7 images are acquired. IMPRESSION: Fluoroscopic assistance was provided for navigational bronchoscopy. The above report was generated using voice recognition software. It may contain grammatical, syntax or spelling errors. Electronically signed by: Jericho Dawn M.D. 05/08/2018 11:51 AM Dictated Date/Time: 05/08/2018 11:50 AM
--- NOTE | 2018-05-08 12:35 | Anesthesiology Progress Note ---
Anesthesia Post Op Note Date & Time May 08, 2018 at 12:34 Vital Signs Pain Intensity: 5 Vital Signs Past 12 Hours Date Time Temp Pulse Resp B/P (MAP) Pulse Ox O2 Delivery O2 Flow Rate FiO2 05/08/18 12:05 36.5 92 16 122/74 93 Nasal Cannula 2 05/08/18 11:55 92 16 104/72 93 Nasal Cannula 2 05/08/18 11:45 86 16 119/72 98 Nasal Cannula 2 05/08/18 11:35 87 16 135/85 98 Nasal Cannula 2 05/08/18 11:25 94 16 159/121 98 Nasal Cannula 2 05/08/18 11:19 36.6 102 16 155/93 90 Room Air 05/08/18 09:05 93 Room Air 05/08/18 07:41 37.2 96 20 178/84 (115) 93 Room Air 05/08/18 07:30 Room Air 05/08/18 07:19 79 18 94 Room Air Notes Mental Status: alert / awake / arousable, participated in evaluation Pt Amnestic to Procedure: Yes Nausea / Vomiting: adequately controlled Pain: adequately controlled Airway Patency, RR, SpO2: stable & adequate BP & HR: stable & adequate Hydration State: stable & adequate Anesthetic Complications: no major complications apparent
--- NOTE | 2018-05-08 13:04 | OPERATIVE REPORT ---
DATE OF OPERATION: 05/08/2018 PREOPERATIVE DIAGNOSIS: Enlarging left upper lobe mass. POSTOPERATIVE DIAGNOSIS: Same. PROCEDURES: 1. Endobronchial ultrasound and biopsy. 2. Navigational bronchoscopy with biopsies of the brush, fine needle aspiration needle, and forceps as well as cell washings. SURGEON: Je Paul MD HALL MONITOR: Chance Swift, respiratory therapy. ANESTHESIA: General anesthesia, endotracheal intubation. INDICATIONS FOR PROCEDURE AND FINDINGS: Mr. Davis is a 77-year-old male who suffered a right hemispheric cerebrovascular accident in the last few months. He is found to have a mass in his left upper lobe that had an infiltrative pattern to it. He really had no lymphadenopathy. At this point, patient presented with a septic right knee and underwent a washout by Dr. Mehrdad Ellison. He grew out methicillin sensitive Staphylococcus aureus in his blood. He was found to have this mass, which was enlarging. He really was not sick from this. I am concerned we are dealing with a neoplasm. I felt that a biopsy would be necessary. I had a long discussion with patient and his . His blood cultures finally became sterile. I took him to the operating room today on 05/08/2018 and performed an uncomplicated endobronchial ultrasound biopsy and a navigational bronchoscopy with biopsies. He awakened without difficulty. He tolerated it well. DESCRIPTION OF PROCEDURE: The patient was brought to the operating room and laid in supine position. General anesthesia induced. Endotracheal intubation was performed with an 8.5 endotracheal tube. After appropriate timeout had been called and antibiotics given, the endobronchial ultrasound scope was placed through an adapter through the endotracheal tube. On coming down, I closely evaluated several lymph node stations, and really he had nothing larger than about a 6 mm node. I biopsied right level 4, right level 2, and left level 10 lymph nodes. I really did not get much back. I really could not see any nodes in the level 7 subcarinal area. I then switched over to navigational bronchoscopy. There were actually 2 lesions. There was 1 large medial and superior infiltrated lesion. There was also a smaller one, which was in the upper lobe. I targeted both of these and had mapped this preoperatively. I went after the smaller area first. I did brush biopsies, fine needle aspirations, and forceps biopsy with touch preps and then did washings. We also did washings for culture. I then went up into the large upper lobe lesion. I did brushes, fine needle aspiration, forceps biopsy with touch preps, and washings on the more medial aspect of this large lesion. We did not get a diagnosis. For this reason, I went a bit more lateral after repositioning this under computer guidance and again did needle aspirations, brush biopsies, and forceps biopsies with touch preps. Again, we did not get an obvious answer here. There were multiple cell blocks, which were pending. We really had no bleeding. He tolerated it well. We did specific washings of the left upper lobe. We really got no bleeding. I slowly removed the bronchoscope, and really we had no difficulty in extubating him. I attest to the content of the Intraoperative Record and any orders documented therein. Any exception s are noted below.
--- NOTE | 2018-05-08 13:24 | Progress Note ---
Subjective Date of Service: May 08, 2018. Subjective this pt is doing well, is now s/p bronchoscopy, is slightly groggy, family at the bedside, for subacute rehab at snf, bed may not be available till next week. Problem List Medical Problems: (1) Acute right MCA stroke Status: Acute (2) Aneurysm, cerebral, nonruptured Status: Acute (3) CHI (closed head injury) Status: Acute (4) Chronic anemia Status: Acute (5) Chronic kidney disease Status: Acute (6) Chronic renal failure Status: Acute (7) Hyperkalemia Status: Acute (8) Hypoxemia Status: Acute (9) Pulmonary mass Status: Acute (10) Rheumatoid arthritis Status: Acute (11) Right lower lobe pneumonia Status: Acute (12) Scalp hematoma Status: Acute (13) Scalp laceration Status: Acute (14) Supratherapeutic INR Status: Acute Review of Systems Constitutional: + weakness, + fatigue, No fever, No chills Respiratory: No cough, No sputum, No shortness of breath Cardiac: No chest pain, No orthopnea, No PND Abdomen: No pain, No nausea, No vomiting Male : No dysuria, No urinary frequency, No incontinence Neurologic: No memory loss, No weakness Psychiatric: No depression symptoms, No anhedonism, No anxiety Objective Vital Signs Date Time Temp Pulse Resp B/P (MAP) Pulse Ox O2 Delivery O2 Flow Rate FiO2 05/08/18 13:01 37.2 90 17 115/74 (88) 93 Nasal Cannula 3.0 05/08/18 12:05 36.5 92 16 122/74 93 Nasal Cannula 2 05/08/18 11:55 92 16 104/72 93 Nasal Cannula 2 05/08/18 11:45 86 16 119/72 98 Nasal Cannula 2 05/08/18 11:35 87 16 135/85 98 Nasal Cannula 2 05/08/18 11:25 94 16 159/121 98 Nasal Cannula 2 05/08/18 11:19 36.6 102 16 155/93 90 Room Air 05/08/18 09:05 93 Room Air 05/08/18 07:41 37.2 96 20 178/84 (115) 93 Room Air 05/08/18 07:30 Room Air 05/08/18 07:19 79 18 94 Room Air 05/08/18 00:00 Room Air 05/07/18 22:56 37.1 90 18 160/82 (108) 93 Room Air 05/07/18 20:44 90 154/90 (111) 05/07/18 20:07 89 18 94 Room Air 05/07/18 15:53 73 18 94 Room Air 05/07/18 15:45 Room Air 05/07/18 15:30 36.6 89 17 120/75 (90) 94 Room Air Physical Exam General Appearance: WD/WN, + mild distress Eyes: normal inspection, sclerae normal Neck: supple, no JVD Respiratory/Chest: chest non-tender, lungs clear, normal breath sounds Cardiovascular: regular rate, rhythm, no murmur Abdomen: normal bowel sounds, non tender, soft Extremities: + pedal edema, + swelling Neurologic/Psychiatric: alert, oriented x 3 Skin: normal color, no rash Laboratory Results Last 24 Hours Test 05/07/18 16:25 05/08/18 06:00 05/08/18 06:06 Prothrombin Time 14.3 SECONDS 12.0 SECONDS Prothromb Time International Ratio 1.4 1.1 White Blood Count 12.37 K/uL Red Blood Count 2.84 M/uL Hemoglobin 7.9 g/dL Hematocrit 25.8 % Mean Corpuscular Volume 90.8 fL Mean Corpuscular Hemoglobin 27.8 pg Mean Corpuscular Hemoglobin Concent 30.6 g/dl RDW Standard Deviation 53.8 fL RDW Coefficient of Variation 16.4 % Platelet Count 316 K/uL Mean Platelet Volume 9.6 fL Assessment and Plan 77-year-old white male admitted on April 30, 2018 with pneumonia possible sepsis , bacteremia possible from right knee infection, and severe hyperkalemia, Possible hospital-acquired pneumonia patient stating [facility] and was discharged on April 05, 2018 Knee and blood cultures are concerning for MSSA, will require 6 weeks of Iv antibiotics once blood cultures are negative will insert PICC line Right knee septic arthritis, lateral and medial meniscus tears, synovitis, partial anterior cruciate ligament tear s/p Right Knee Arthroscopic Irrigation and Debridement, partial medial and lateral meniscectomy, debridement ACL, synovectomy by Dr. Bertha Ellison 05/02 WBAT RLE; acute blood loss anemia, will check iron levels and consider transfusion if not improving MSSA bacteremia, blood cultures and culture of aspiration of fluid positive, , repeat cultures sent once again and cultures from 05/05 negative Is on Rocephin IV after discussed with infectious disease, infectious disease input feels 6 week total length of IV antibiotic for septic arthritis and MSSA bacteremia, now does have negative cultures will have picc line placed 05/08 Severe hyperkalemia on admission, resolved Lung Mass with history of previous, Possible pneumonia upon admission, was seen by Ct surgery, Repeat Ct of chest shows some increase since 03/16, Dr Paul will consider bronchoscopy 05/08 for tissue biopsy. Acute on chronic kidney disease stage III. Continues to be improving Coumadin coagulopathy with INR is 6.9 upon admission, s/p 1 dose of vitamin K, restarted oral Coumadin, With history of pulmonary embolism/afib, will need to reduce INR for bronchoscopy and possible biopsy 05/08 . History of atrial fibrillation, on Coumadin. seem to be having paroxysmal runs of afib but is rate controlled and asymptomatic hx of Rheumatoid arthritis, is on oral steroid prior to admission, has been on hydrocortisone IV, resume po Severe constipation, suppository and enema Continued [facility] stay due to: multiple IV medications needed Discharge planning: rehab hospital
--- NOTE | 2018-05-08 15:05 | DIAGNOSTIC IMAGING REPORT ---
CHEST ONE VIEW PORTABLE HISTORY: RIGHT PICC LINE PLACEMENT COMPARISON: Chest 05/08/2018. FINDINGS: No pneumothorax. The right PICC terminates at the proximal SVC. Bilateral calcified pleural plaques and a small right pleural effusion persist. No new focal lung consolidations. The heart remains mildly enlarged. Left apical opacity and left clavicle fracture again noted. IMPRESSION: 1. The right PICC terminates at the proximal SVC. No pneumothorax. 2. Left apical opacity and left clavicle fracture again noted. Electronically signed by: Eddie Orona M.D. 05/08/2018 3:04 PM Dictated Date/Time: 05/08/2018 3:02 PM
[2018-05-08] MEDS: CEFTRIAXONE SOD INJ 1 GM in DEXTROSE 5% ADD-VANTAGE 50ML 50 ML IV SCH (15:08)
[2018-05-09] VITALS (7 sets, daily range): BP systolic 112–130; BP diastolic 68–90; PULSE 90–100; TEMP 36.9–38.2; O2SAT 91–97
[2018-05-09] MEDS: ACETAMINOPHEN 325 MG TAB PO PRN (03:47)
[2018-05-09] MEDS: OXYCODONE HCL IR 5 MG TAB (IMMEDIATE RELEASE) PO PRN ×4 (05:41→22:45)
[2018-05-09 05:57] LABS: HEMATOCRIT 24.1 % (42-52); HEMOGLOBIN 7.3 g/dL (14.0-18.0); MEAN CELL VOLUME 91.6 fL (80-100); MEAN CORPUSCULAR HEMOGLOBIN 27.8 pg (25-34); MEAN CORPUSCULAR HGB CONC 30.3 g/dl (32-36); MEAN PLATELET VOLUME 9.1 fL (7.4-10.4); PLATELET COUNT 246 K/uL (130-400); RED CELL DISTRIBUTION WIDTH CV 16.6 % (11.5-14.5); WHITE BLOOD COUNT 12.92 K/uL (4.8-10.8)
[2018-05-09 06:38] LABS: BASO % 0.2 %; BASO ABS # 0.02 K/uL (0-0.2); EOS % 1.3 %; EOS ABS # 0.17 K/uL (0-0.5); IG# 0.91 K/uL (0.00-0.02); LYMPH % 8.7 %; LYMPH ABS # 1.13 K/uL (1.2-3.4); MONO % 4.5 %; MONO ABS # 0.58 K/uL (0.11-0.59); NEUT % 78.3 %; NEUT ABS # 10.11 K/uL (1.4-6.5)
--- NOTE | 2018-05-09 07:11 | SURGERY PROGRESS NOTE ---
DATE: 05/09/2018 Mr. Davis was seen today on 05/09/2018. I performed an endobronchial ultrasound and navigational bronchoscopy yesterday. I have a high index of suspicion that Mr. Davis has a non-small cell lung carcinoma in his left upper lobe; however, our rapid onsite evaluation of multiple biopsies yesterday did not show obvious malignancy. We did send off multiple cultures also. The Gram stain showed no organisms. The lymph nodes were very small and I really did not feel that we were really getting any of the lymphatic tissue. We will wait for the final pathology. In the meantime, I have ordered labs. His hemoglobin has been running in the 7s and his BUN and creatinine have been elevated, although improving. He may also resume his anticoagulation.
[2018-05-09] MEDS: ALBUT/IPRATROP 3MG/0.5MG NEB 3 ML VIAL INH SCH ×2 (07:33→11:34)
[2018-05-09 07:54] LABS: HEMATOCRIT 22.9 % (42-52); HEMOGLOBIN 7.1 g/dL (14.0-18.0); MEAN CORPUSCULAR HEMOGLOBIN 28.5 pg (25-34); MEAN PLATELET VOLUME 9.1 fL (7.4-10.4); PLATELET COUNT 240 K/uL (130-400); RED CELL DISTRIBUTION WIDTH CV 16.5 % (11.5-14.5); RED CELL DISTRIBUTION WIDTH SD 55.2 fL (36.4-46.3); WHITE BLOOD COUNT 11.83 K/uL (4.8-10.8)
--- NOTE | 2018-05-09 07:55 | Progress Note ---
Subjective Date of Service: May 09, 2018. Subjective this pt is feeling a bit dim, he has no focal complaints. pathology is pending Problem List Medical Problems: (1) Acute right MCA stroke Status: Acute (2) Aneurysm, cerebral, nonruptured Status: Acute (3) CHI (closed head injury) Status: Acute (4) Chronic anemia Status: Acute (5) Chronic kidney disease Status: Acute (6) Chronic renal failure Status: Acute (7) Hyperkalemia Status: Acute (8) Hypoxemia Status: Acute (9) Pulmonary mass Status: Acute (10) Rheumatoid arthritis Status: Acute (11) Right lower lobe pneumonia Status: Acute (12) Scalp hematoma Status: Acute (13) Scalp laceration Status: Acute (14) Supratherapeutic INR Status: Acute Review of Systems Constitutional: No fever, No chills, No weakness Respiratory: No cough, No shortness of breath Cardiac: No chest pain, No orthopnea, No edema Abdomen: No pain, No nausea, No vomiting, No diarrhea Musculoskeletal: + joint pain, + muscle pain, + swelling Psychiatric: No depression symptoms, No anhedonism Objective Vital Signs Date Time Temp Pulse Resp B/P (MAP) Pulse Ox O2 Delivery O2 Flow Rate FiO2 05/09/18 07:33 93 18 93 Nasal Cannula 2.0 05/09/18 03:15 37.9 94 18 115/68 (84) 93 Nasal Cannula 2.0 05/09/18 00:00 Nasal Cannula 2.0 05/08/18 23:28 101 110/71 (84) 05/08/18 23:07 37.7 102 18 106/67 (80) 92 Nasal Cannula 2.0 05/08/18 21:46 108 124/78 (93) 05/08/18 20:04 103 18 93 Nasal Cannula 1.5 05/08/18 19:16 37.0 104 24 110/62 (78) 94 Nasal Cannula 2.0 05/08/18 16:10 Nasal Cannula 2.5 05/08/18 15:35 37.2 83 24 124/72 (89) 90 Nasal Cannula 2.0 05/08/18 15:33 83 18 90 Nasal Cannula 2.5 05/08/18 14:56 37.5 62 18 139/79 (99) 97 Nasal Cannula 3.0 05/08/18 13:45 37.1 86 20 111/72 (85) 95 Nasal Cannula 3.0 05/08/18 13:01 37.2 90 17 115/74 (88) 93 Nasal Cannula 3.0 05/08/18 12:15 37.1 93 16 113/76 (88) 95 Nasal Cannula 2.0 05/08/18 12:15 95 Nasal Cannula 2.0 05/08/18 12:05 36.5 92 16 122/74 93 Nasal Cannula 2 05/08/18 11:55 92 16 104/72 93 Nasal Cannula 2 05/08/18 11:45 86 16 119/72 98 Nasal Cannula 2 05/08/18 11:35 87 16 135/85 98 Nasal Cannula 2 05/08/18 11:25 94 16 159/121 98 Nasal Cannula 2 05/08/18 11:19 36.6 102 16 155/93 90 Room Air 05/08/18 09:05 93 Room Air Physical Exam General Appearance: WD/WN, + mild distress Eyes: normal inspection, sclerae normal Neck: supple, no JVD Respiratory/Chest: chest non-tender, lungs clear, normal breath sounds Cardiovascular: regular rate, rhythm, no murmur Abdomen: normal bowel sounds, non tender, soft Extremities: no pedal edema, no calf tenderness Neurologic/Psychiatric: alert, oriented x 3 Laboratory Results Last 24 Hours Test 05/09/18 05:48 05/09/18 07:32 White Blood Count 12.92 K/uL Red Blood Count 2.63 M/uL Hemoglobin 7.3 g/dL Hematocrit 24.1 % Mean Corpuscular Volume 91.6 fL Mean Corpuscular Hemoglobin 27.8 pg Mean Corpuscular Hemoglobin Concent 30.3 g/dl Platelet Count 246 K/uL Mean Platelet Volume 9.1 fL Neutrophils (%) (Auto) 78.3 % Lymphocytes (%) (Auto) 8.7 % Monocytes (%) (Auto) 4.5 % Eosinophils (%) (Auto) 1.3 % Basophils (%) (Auto) 0.2 % Neutrophils # (Auto) 10.11 K/uL Lymphocytes # (Auto) 1.13 K/uL Monocytes # (Auto) 0.58 K/uL Eosinophils # (Auto) 0.17 K/uL Basophils # (Auto) 0.02 K/uL RDW Standard Deviation 55.0 fL RDW Coefficient of Variation 16.6 % Immature Granulocyte % (Auto) 7.0 % Immature Granulocyte # (Auto) 0.91 K/uL Red Blood Cell Morphology Unremarkable Total Iron Binding Capacity 167 mcg/dl Assessment and Plan 77-year-old white male admitted on April 30, 2018 with pneumonia possible sepsis , bacteremia possible from right knee infection, and severe hyperkalemia, Possible hospital-acquired pneumonia patient was in [facility] and was discharged on April 05, 2018 Knee and blood cultures are concerning for MSSA, will require 6 weeks of Iv antibiotics once blood cultures are negative will insert PICC line Right knee septic arthritis, lateral and medial meniscus tears, synovitis, partial anterior cruciate ligament tear s/p Right Knee Arthroscopic Irrigation and Debridement, partial medial and lateral meniscectomy, debridement ACL, synovectomy by Dr. Bertha Ellison 05/02 WBAT RLE; acute blood loss anemia, will check iron levels and follow after transfusion. MSSA bacteremia, blood cultures and culture of aspiration of fluid positive, , repeat cultures sent once again and cultures from 05/05 negative Is on Rocephin IV after discussed with infectious disease, infectious disease input feels 6 week total length of IV antibiotic for septic arthritis and MSSA bacteremia, now does have negative cultures will have picc line placed 05/08 Severe hyperkalemia on admission, resolved Lung Mass with history of previous, ruled out pneumonia, Ct surgery, Repeat Ct , Dr Paul performed bronchoscopy 05/08 for tissue biopsy, final pathology is pending Acute on chronic kidney disease stage III. Continues to be improving Coumadin coagulopathy with INR is 6.9 upon admission, s/p 1 dose of vitamin K, restarted oral Coumadin, With history of pulmonary embolism/afib, iv vitamin K reduced INR for bronchoscopy and possible biopsy 05/08, restart oral dose . History of atrial fibrillation, on Coumadin. seem to be having paroxysmal runs of afib but is rate controlled and asymptomatic hx of Rheumatoid arthritis, is on oral steroid prior to admission, has been on hydrocortisone IV, resumed po Severe constipation, suppository and enema resolved Continued [facility] stay due to: multiple IV medications needed Discharge planning: rehab hospital
[2018-05-09] MEDS: LEFLUNOMIDE 10 MG TAB PO SCH (08:24)
[2018-05-09] MEDS: DOCUSATE SODIUM 100 MG CAP PO SCH ×2 (08:24→21:00)
[2018-05-09] MEDS: POLYETHYLENE (MIRALAX) 17 GM PACK PO SCH ×2 (08:24→21:00)
[2018-05-09] MEDS: PRAVASTATIN SOD 10 MG TAB PO SCH (08:25)
[2018-05-09] MEDS: AMLODIPINE BESYLATE 5 MG TAB PO SCH (08:25)
[2018-05-09 08:28] LABS: CALCIUM 7.6 mg/dl (8.5-10.1); CREATININE 1.47 mg/dl (0.60-1.40); POTASSIUM 3.5 mmol/L (3.5-5.1)
[2018-05-09] MEDS: SODIUM BICARBONATE 650 MG TAB PO SCH ×3 (09:49→21:04)
[2018-05-09] MEDS: LISINOPRIL 20 MG TAB PO SCH (09:49)
[2018-05-09] MEDS: METOPROLOL TARTRATE 25 MG TAB PO SCH ×2 (09:49→21:03)
[2018-05-09] MEDS ORDERED: ALBUT/IPRATROP 3MG/0.5MG NEB 3 ML VIAL INH PRN (13:30)
[2018-05-09] MEDS: CEFTRIAXONE SOD INJ 1 GM in DEXTROSE 5% ADD-VANTAGE 50ML 50 ML IV SCH (14:10)
[2018-05-09] MEDS ORDERED: WARFARIN SOD 5 MG TAB PO ONE (16:00)
[2018-05-09] MEDS: WARFARIN SOD 2.5 MG TAB PO SCH (16:05)
[2018-05-09] MEDS ORDERED: NURSING VERBAL MED ORDER ONE (16:15)
[2018-05-09] MEDS: PANTOprazole SOD 40 MG TAB PO SCH (21:04)
[2018-05-09] MEDS: ACETAMINOPHEN 500 MG TAB PO PRN (23:12)
[2018-05-10 00:23] VITALS: TEMP 37.6
[2018-05-10] MEDS: OXYCODONE HCL IR 5 MG TAB (IMMEDIATE RELEASE) PO PRN ×2 (03:38→18:08)
[2018-05-10 06:06] LABS: INR 1.2 (0.9-1.1)
[2018-05-10 07:44] VITALS: BP 137/75; PULSE 86; TEMP 37; O2SAT 93
[2018-05-10] MEDS: POLYETHYLENE (MIRALAX) 17 GM PACK PO SCH ×2 (08:37→20:25)
[2018-05-10] MEDS: DOCUSATE SODIUM 100 MG CAP PO SCH ×2 (08:37→20:25)
[2018-05-10] MEDS: AMLODIPINE BESYLATE 5 MG TAB PO SCH (08:38)
[2018-05-10] MEDS: LEFLUNOMIDE 10 MG TAB PO SCH (08:38)
[2018-05-10] MEDS: PRAVASTATIN SOD 10 MG TAB PO SCH (08:39)
[2018-05-10] MEDS: LISINOPRIL 20 MG TAB PO SCH (08:39)
[2018-05-10] MEDS: PANTOprazole SOD 40 MG TAB PO SCH ×2 (08:39→20:27)
[2018-05-10] MEDS: METOPROLOL TARTRATE 25 MG TAB PO SCH ×2 (08:39→20:27)
[2018-05-10] MEDS: SODIUM BICARBONATE 650 MG TAB PO SCH ×3 (08:39→20:27)
--- NOTE | 2018-05-10 11:09 | SURGERY PROGRESS NOTE ---
DATE: 05/10/2018 SUBJECTIVE: Mr. Davis was seen today. He has not really changed much. He is in bed. He is on room air with 93% sats this morning. His labs show his hemoglobin is still low at 7.1. It was 7.5 a week ago. Not really growing anything out of any cultures. He did spike another temp to 38.2. His white count is 11,830 this morning. The multiple biopsies from the endobronchial ultrasound and navigational bronchoscopy from Friday are pending. ASSESSMENT AND PLAN: Multiple problems including recent neurologic event as well as septic joint and anemia. I believe this patient has a left upper lobe cancer and we are awaiting what the cell blocks will show. That will help elucidate this further. YANNICKD
--- NOTE | 2018-05-10 13:09 | Progress Note ---
Subjective Date of Service: May 10, 2018. Subjective pt is slighlty fatigued and did refuse blood on mormonism principles. He understands that low blood counts do impact his healing and rehab potential Problem List Medical Problems: (1) Acute right MCA stroke Status: Acute (2) Aneurysm, cerebral, nonruptured Status: Acute (3) CHI (closed head injury) Status: Acute (4) Chronic anemia Status: Acute (5) Chronic kidney disease Status: Acute (6) Chronic renal failure Status: Acute (7) Hyperkalemia Status: Acute (8) Hypoxemia Status: Acute (9) Pulmonary mass Status: Acute (10) Rheumatoid arthritis Status: Acute (11) Right lower lobe pneumonia Status: Acute (12) Scalp hematoma Status: Acute (13) Scalp laceration Status: Acute (14) Supratherapeutic INR Status: Acute Review of Systems Constitutional: + weakness, + fatigue, No fever, No chills Respiratory: + dyspnea on exertion, No cough, No shortness of breath Cardiac: + edema, No chest pain Abdomen: + constipation, No pain, No nausea Musculoskeletal: + joint pain, + muscle pain Neurologic: + memory loss, + weakness Psychiatric: No depression symptoms, No anxiety Objective Vital Signs Date Time Temp Pulse Resp B/P (MAP) Pulse Ox O2 Delivery O2 Flow Rate FiO2 05/10/18 07:44 37.0 86 16 137/75 (95) 93 Room Air 05/10/18 07:35 Nasal Cannula 2.0 05/10/18 00:23 37.6 05/09/18 23:15 Nasal Cannula 2.0 05/09/18 22:57 38.2 90 18 128/73 (91) 97 Room Air 05/09/18 16:00 Room Air 05/09/18 15:14 37.8 93 21 130/90 (103) 95 Nasal Cannula 2.0 Physical Exam General Appearance: WD/WN, + mild distress Eyes: normal inspection, sclerae normal Respiratory/Chest: chest non-tender, + decreased breath sounds Cardiovascular: regular rate, rhythm, no murmur Abdomen: normal bowel sounds Extremities: + swelling, + pertinent finding (has knee pain as expected post op ) Neurologic/Psychiatric: alert, oriented x 3 Laboratory Results Last 24 Hours Test 05/10/18 05:47 Prothrombin Time 12.7 SECONDS Prothromb Time International Ratio 1.2 Assessment and Plan 77-year-old white male admitted on April 30, 2018 with pneumonia possible sepsis , bacteremia possible from right knee infection, and severe hyperkalemia, Possible hospital-acquired pneumonia patient was in [facility] and was discharged on April 05, 2018 Knee and blood cultures are concerning for MSSA, will require 6 weeks of Iv antibiotics once blood cultures are negative will insert PICC line Right knee septic arthritis, lateral and medial meniscus tears, synovitis, partial anterior cruciate ligament tear s/p Right Knee Arthroscopic Irrigation and Debridement, partial medial and lateral meniscectomy, debridement ACL, synovectomy by Dr. Bertha Ellison 05/02 WBAT RLE; last dose june 11 acute blood loss anemia, will check iron levels and follow, pt refused transfusion based on mormonism beliefs MSSA bacteremia, blood cultures and culture of aspiration of fluid positive, , repeat cultures sent once again and cultures from 05/05 negative Is on Rocephin IV after discussed with infectious disease, infectious disease input feels 6 week total length of IV antibiotic for septic arthritis and MSSA bacteremia, now does have negative cultures will have picc line placed 05/08 Severe hyperkalemia on admission, resolved Lung Mass with history of previous, ruled out pneumonia, Ct surgery, Repeat Ct , Dr Paul performed bronchoscopy 05/08 for tissue biopsy, final pathology is pending Acute on chronic kidney disease stage III. Continues to be improving Coumadin coagulopathy with INR is 6.9 upon admission, s/p 1 dose of vitamin K, restarted oral Coumadin, With history of pulmonary embolism/afib, iv vitamin K reduced INR for bronchoscopy and possible biopsy 05/08, restart oral dose . History of atrial fibrillation, on Coumadin. seem to be having paroxysmal runs of afib but is rate controlled and asymptomatic hx of Rheumatoid arthritis, is on oral steroid prior to admission, has been on hydrocortisone IV, resumed po Severe constipation, suppository and enema resolved Continued [facility] stay due to: multiple IV medications needed Discharge planning: rehab hospital
[2018-05-10] MEDS: CEFTRIAXONE SOD INJ 1 GM in DEXTROSE 5% ADD-VANTAGE 50ML 50 ML IV SCH (13:56)
[2018-05-10 15:00] VITALS: BP 118/68; PULSE 101; TEMP 37.4; O2SAT 93
[2018-05-10] MEDS: WARFARIN SOD 2.5 MG TAB PO SCH (16:20)
[2018-05-10 23:00] VITALS: BP 129/75; PULSE 88; TEMP 37.3; O2SAT 93
[2018-05-11 06:19] LABS: HEMATOCRIT 22.2 % (42-52); HEMOGLOBIN 6.8 g/dL (14.0-18.0); MEAN CELL VOLUME 91.4 fL (80-100); MEAN CORPUSCULAR HGB CONC 30.6 g/dl (32-36); MEAN PLATELET VOLUME 9.3 fL (7.4-10.4); PLATELET COUNT 216 K/uL (130-400); RED CELL DISTRIBUTION WIDTH SD 53.5 fL (36.4-46.3); WHITE BLOOD COUNT 7.04 K/uL (4.8-10.8)
[2018-05-11 06:41] LABS: CALCIUM 7.7 mg/dl (8.5-10.1); CREATININE 1.35 mg/dl (0.60-1.40); POTASSIUM 3.7 mmol/L (3.5-5.1)
--- NOTE | 2018-05-11 07:27 | Anesthesiology Progress Note ---
Anesthesia Post Op Note Date & Time May 11, 2018 at 07:25 Vital Signs Pain Intensity: 0.0 Vital Signs Past 12 Hours Date Time Temp Pulse Resp B/P (MAP) Pulse Ox O2 Delivery O2 Flow Rate FiO2 05/10/18 23:23 Room Air 05/10/18 23:00 37.3 88 18 129/75 (93) 93 Room Air Notes Mental Status: alert / awake / arousable, participated in evaluation Pt Amnestic to Procedure: Yes Nausea / Vomiting: adequately controlled Pain: adequately controlled Airway Patency, RR, SpO2: stable & adequate BP & HR: stable & adequate Hydration State: stable & adequate Anesthetic Complications: no major complications apparent
[2018-05-11 07:29] VITALS: BP 151/78; PULSE 94; TEMP 37.1; O2SAT 92
[2018-05-11] MEDS: POLYETHYLENE (MIRALAX) 17 GM PACK PO SCH ×2 (08:44→20:54)
[2018-05-11] MEDS: AMLODIPINE BESYLATE 5 MG TAB PO SCH (08:45)
[2018-05-11] MEDS: LEFLUNOMIDE 10 MG TAB PO SCH (08:45)
[2018-05-11] MEDS: PRAVASTATIN SOD 10 MG TAB PO SCH (08:45)
[2018-05-11] MEDS: LISINOPRIL 20 MG TAB PO SCH (08:46)
[2018-05-11] MEDS: SODIUM BICARBONATE 650 MG TAB PO SCH ×3 (08:46→20:54)
[2018-05-11] MEDS: METOPROLOL TARTRATE 25 MG TAB PO SCH ×2 (08:46→20:53)
[2018-05-11] MEDS: DOCUSATE SODIUM 100 MG CAP PO SCH ×2 (08:46→20:53)
[2018-05-11] MEDS: PANTOprazole SOD 40 MG TAB PO SCH ×2 (08:48→20:53)
[2018-05-11] MEDS: OXYCODONE HCL IR 5 MG TAB (IMMEDIATE RELEASE) PO PRN (11:51)
[2018-05-11] MEDS ORDERED: PRED10TA PO (12:23)
--- NOTE | 2018-05-11 12:25 | Hospitalist Progress Note ---
Hospitalist Progress Note Date of Service May 11, 2018. Subjective Pt evaluation today including: conversation w/ patient, conversation w/ family , conversation w/ medical cost consultant (Thoracic Surgery, oncology) Patient has pain in the right knee. Denies shortness of breath, has some cough. He has chronic pain in his hands and states that he takes prednisone 10 mg every day and usually twice a day. He confirms that he declines all blood products. Denies headache, chest pain. He is moving his bowels. There is no blood. All Other Systems: Reviewed and Negative Objective Vital Signs Date Time Temp Pulse Resp B/P (MAP) Pulse Ox O2 Delivery O2 Flow Rate FiO2 05/11/18 07:29 37.1 94 16 151/78 (102) 92 Room Air 05/11/18 07:27 Room Air 05/10/18 23:23 Room Air 05/10/18 23:00 37.3 88 18 129/75 (93) 93 Room Air 05/10/18 15:05 Room Air 05/10/18 15:00 37.4 101 18 118/68 (85) 93 Room Air Physical Exam General Appearance: WD/WN, no apparent distress Eyes: normal inspection, EOMI, sclerae normal ENT: hearing grossly normal, + pertinent finding (Mild facial droop on the left ) Neck: trachea midline Respiratory/Chest: no respiratory distress, no accessory muscle use, + crackles (At the right base), + rhonchi, + wheezing Cardiovascular: regular rate, rhythm, + pertinent finding (Anasarca) Abdomen: normal bowel sounds, non tender, soft Extremities: + swelling (Anasarca as above; hands with swollen MCP and PIP joints; right knee with sutures in place, no surrounding erythema, positive tenderness to palpation the medial knee) Neurologic/Psychiatric: alert, + pertinent finding (Weakness left upper and lower extremities) Skin: warm/dry Laboratory Results Last 24 Hours Test 05/11/18 05:41 White Blood Count 7.04 K/uL Red Blood Count 2.43 M/uL Hemoglobin 6.8 g/dL Hematocrit 22.2 % Mean Corpuscular Volume 91.4 fL Mean Corpuscular Hemoglobin 28.0 pg Mean Corpuscular Hemoglobin Concent 30.6 g/dl RDW Standard Deviation 53.5 fL RDW Coefficient of Variation 16.0 % Platelet Count 216 K/uL Mean Platelet Volume 9.3 fL Sodium Level 136 mmol/L Potassium Level 3.7 mmol/L Chloride Level 102 mmol/L Carbon Dioxide Level 28 mmol/L Anion Gap 6.0 mmol/L Blood Urea Nitrogen 21 mg/dl Creatinine 1.35 mg/dl Est Creatinine Clear Calc Drug Dose 51.6 ml/min Estimated GFR () 58.3 Estimated GFR (Non- 50.3 BUN/Creatinine Ratio 15.7 Random Glucose 90 mg/dl Calcium Level 7.7 mg/dl Iron Level 19 mcg/dl Assessment and Plan This patient is a 77-year-old white male with a history of recent right MCA CVA , COPD, HTN, PE, long-standing rheumatoid arthritis on chronic prednisone, PAF on Coumadin, hyperlipidemia, cerebral aneurysms, gout, and chronic diastolic CHF , who was admitted on April 30, 2018 with pneumonia with possible sepsis, bacteremia likely from right knee infection, and severe hyperkalemia. Possible hospital-acquired pneumonia patient was in [facility] and was discharged on April 05, 2018 Knee and blood cultures are positive for MSSA, and he will require 6 weeks of Iv antibiotics. Right knee septic arthritis, lateral and medial meniscus tears, synovitis, partial anterior cruciate ligament tear, gouty crystals seen on fluid analysis. s/p Right Knee Arthroscopic Irrigation and Debridement, partial medial and lateral meniscectomy, debridement ACL, synovectomy by Dr. Bertha Ellison 05/02 WBAT RLE -Pain control as needed -Needs rehab placement when medically stable Acute blood loss anemia, pt has refused blood transfusion based on worship beliefs-hemoglobin even lower today at 6.8. He is hemodynamically stable. Serum iron level was low, but ferritin and transferrin sat were not checked. -Discussed with hematology and will give IV Venofer 100 mg daily 3 doses -Give Procrit 40,000 units subcu once weekly -Follow CBC -Check B12 and folate and replete as needed MSSA bacteremia, blood cultures and culture of aspiration of fluid positive, , repeat cultures sent once again and cultures from 05/05 negative Is on Rocephin IV after discussed with infectious disease, infectious disease input feels 6 week total length of IV antibiotic for septic arthritis and MSSA bacteremia, now does have negative cultures and had the picc line placed 05/08 Severe hyperkalemia on admission, resolved Lung Mass with history of previous, ruled out pneumonia, Ct surgery, Repeat Ct , Dr Paul performed bronchoscopy 05/08 for tissue biopsy, 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 Continues to be improving Coumadin coagulopathy with INR is 6.9 upon admission, s/p 1 dose of vitamin K, restarted oral Coumadin, With history of pulmonary embolism/afib, iv vitamin K reduced INR for bronchoscopy and possible biopsy 05/08, restarted oral dose -Follow PT/INR . History of atrial fibrillation, on Coumadin. seem to be having paroxysmal runs of afib but is rate controlled and asymptomatic Hx of Rheumatoid arthritis, is on oral steroid prior to admission, had been on hydrocortisone IV here, resumed po prednisone-this is not a as needed dose- changed to scheduled 10 mg in the morning and a as needed 10 mg dose in the afternoon which is how he takes it at home -Remains on his DMARD drug here called Arava-I will contact his latex foam worker tomorrow, Dr. Neff at [phone] to see if he thinks his medication should be held while he is currently being treated for his knee infection and bacteremia. This will also be important if he is to undergo any chemotherapy in the near future as well Severe constipation, suppository and enema resolved Cerebral aneurysm-3 of them were found on CT angiogram here-unclear what further workup needs to be done for this-I will try to obtain his [facility] records and discuss this with his family Prophylaxis-Coumadin Disposition-likely to rehab in the next couple of days if hemoglobin improves
[2018-05-11] MEDS ORDERED: IRON SUCROSE INJ 100 MG in SODIUM CHLORIDE 0.9% 100ML 100 ML IV SCH (12:45)
--- NOTE | 2018-05-11 13:33 | SURGERY PROGRESS NOTE ---
DATE: 05/11/2018 Mr. Davis was seen today. He has had no change clinically. I discussed this with Dr. Vargas from pathology and the mass in his upper lobe is an adenocarcinoma. He did have enough to send off for genomic studies. The patient's hemoglobin has dropped to 6.8, but he was only 7.7 when he was admitted. He is on room air and his x-ray after the EBUS / ENB looked quite good. All of the washings were negative for any growth. I am going to ask Dr. Cartwright to evaluate him from a hematology/oncology standpoint. I had a long talk with the patient's daughter at the bedside. I told her I do not think he is going to be a candidate for surgery witj all of his other problem; however, I would like to have an oncology evaluation, so we can discuss this further. SEVERIANO
[2018-05-11] MEDS: CEFTRIAXONE SOD INJ 1 GM in DEXTROSE 5% ADD-VANTAGE 50ML 50 ML IV SCH (14:04)
[2018-05-11 15:07] VITALS: BP 136/74; PULSE 105; TEMP 37.4; O2SAT 92
[2018-05-11] MEDS: WARFARIN SOD 2.5 MG TAB PO SCH (16:02)
[2018-05-11 16:15] VITALS: O2SAT 92
--- NOTE | 2018-05-11 16:58 | Oncology Consultation ---
Oncology/Heme Consultation Date of Consultation: May 11, 2018. Attending Physician: Marily Wakefield MD History of Present Illness Mr. Davis is a 77 year old man with a history of rheumatoid arthritis on leflunomide and chronic steroids. He also suffered an acute embolic right MCA stroke in February. As part of a workup for that episode, he had a CTA of his neck that incidentally identified a AFSHAN lung mass. He was transferred to [place] to manage his stroke, with a plan to work up the lung mass following his recovery. He was at rehab following that stay when he developed right knee pain. He presented 05/01 with an inflamed, tender right knee. It was aspirated on admission , revealing frankly purulent fluid that grew out MSSA. He was also found to have a MSSA bacteremia and is on IV antibiotics. During this period, he was also treated for a RLL pneumonia. He underwent a diagnostic ENB and EBUS on Friday which revealed a AFSHAN lung adenocarcinoma. Multiple hilar and mediastinal nodes were sampled, but the specimens were inadequate for diagnosis. He is very weak and drifted in and out while we were speaking today. His primary source of pain is his right knee. He has been weak for the last several months, though he has had a number of other issues going on. He denies any cough or hemoptysis. Past Medical/Surgical History Medical Problems: (1) Acute right MCA stroke Status: Acute (2) Aneurysm, cerebral, nonruptured Status: Acute (3) CHI (closed head injury) Status: Acute (4) Chronic anemia Status: Acute (5) Chronic kidney disease Status: Acute (6) Chronic renal failure Status: Acute (7) Hyperkalemia Status: Acute (8) Hypoxemia Status: Acute (9) Pulmonary mass Status: Acute (10) Rheumatoid arthritis Status: Acute (11) Right lower lobe pneumonia Status: Acute (12) Scalp hematoma Status: Acute (13) Scalp laceration Status: Acute (14) Supratherapeutic INR Status: Acute Family History Cancer Diabetes mellitus Heart disease Hypertension Lung disease Social History Smoking Status: Former Smoker Marital Status: Housing Status: lives alone Occupation Status: retired Allergies Coded Allergies: No Known Allergies (Unverified , 04/30/18) Home Medications Scheduled Amlodipine (Norvasc), 10 MG PO QAM Leflunomide (Arava), 20 MG PO QAM Lisinopril (Prinivil), 20 MG PO QAM Pravastatin (Pravachol ), 10 MG PO QAM Prednisone (Prednisone), 10 MG PO QAM Sodium Bicarbonate (Antacid) (Sodium Bicarbonate), 650 MG PO TID Warfarin Sod (Jantoven), 3 MG PO 2100 Scheduled PRN Acetaminophen (Tylenol), 1,000 MG PO Q8 PRN for Pain Docusate Sodium (Colace), 1 CAP PO BID PRN for Constipation Current Inpatient Medications Current Inpatient Medications Medications (Trade) Dose Ordered Sig/Sascha Route Start Time Stop Time Status Last Admin Dose Admin Acetaminophen (Tylenol Tab) 650 mg Q4H PRN PO 04/30/18 16:30 05/30/18 16:29 05/09/18 03:47 650 MG Al Hydrox/Mg Hydrox/Simethicone (Maalox Max Susp) 15 ml Q4H PRN PO 04/30/18 16:30 05/30/18 16:29 Magnesium Hydroxide (Milk Of Magnesia Susp) 30 ml Q12H PRN PO 04/30/18 16:30 05/30/18 16:29 Zolpidem Tartrate (Ambien Tab) 5 mg HSZ PRN PO 04/30/18 16:30 05/30/18 16:29 Ondansetron HCl (Zofran Inj) 4 mg Q6H PRN IV 04/30/18 16:30 05/30/18 16:29 Polyethylene (Miralax Powder Packet) 17 gm DAILY PRN PO 04/30/18 16:30 05/30/18 16:29 Amlodipine Besylate (Norvasc Tab) 10 mg QAM PO 05/01/18 09:00 05/31/18 08:59 05/11/18 08:45 10 MG Docusate Sodium (coLACE CAP) 100 mg BID PRN PO 04/30/18 16:45 05/30/18 16:44 Pravastatin Sodium (Pravachol Tab) 10 mg QAM PO 05/01/18 09:00 05/31/18 08:59 05/11/18 08:45 10 MG Leflunomide (Arava) 20 mg QAM PO 05/01/18 09:00 05/31/18 08:59 05/11/18 08:45 20 MG Sodium Bicarbonate (Sodium Bicarbonate Tab) 650 mg TID PO 04/30/18 21:00 05/30/18 20:59 05/11/18 14:03 650 MG Hydralazine HCl (HydrALAZINE INJ) 20 mg Q4 PRN IV. 04/30/18 16:45 05/30/18 16:44 Morphine Sulfate (MoRPHine SULFATE INJ) 4 mg Q6 PRN IV 04/30/18 16:45 05/14/18 16:44 05/04/18 20:58 4 MG Docusate Sodium (coLACE CAP) 100 mg BID PO 04/30/18 21:00 05/30/18 20:59 05/11/18 08:46 100 MG Bisacodyl (Dulcolax Supp) 10 mg DAILY PRN OR 05/01/18 13:00 05/31/18 12:59 Sodium Biphosphate/ Sodium Phosphate (Fleet Enema) 132 ml DAILY PRN OR 05/01/18 13:00 05/31/18 12:59 05/02/18 05:00 132 ML Lidocaine (AneCream 4%) 1 appln Q12 PRN EXT 05/01/18 13:15 05/31/18 13:14 05/01/18 13:59 1 APPLN Oxycodone HCl (Roxicodone Immediate Rel Tab) `1-2 tabs for pain 1 tab ... Q4H PRN PO 05/01/18 14:00 05/15/18 13:59 05/11/18 11:51 10 MG Metoprolol Tartrate (Lopressor Tab) 12.5 mg BID PO 05/02/18 09:00 06/01/18 08:59 05/11/18 08:46 12.5 MG Ceftriaxone Sodium 1 gm/ Dextrose 50 ml @ 100 mls/hr Q24H IV 05/03/18 14:00 05/17/18 13:59 05/11/18 14:04 100 MLS/HR Polyethylene (Miralax Powder Packet) 17 gm BID PO 05/05/18 21:00 05/31/18 08:59 Acetaminophen (Tylenol Tab) 1,000 mg Q8 PRN PO 05/08/18 11:15 06/07/18 11:14 05/09/18 23:12 1,000 MG Lisinopril (Zestril Tab) 20 mg QAM PO 05/09/18 09:00 06/08/18 08:59 05/11/18 08:46 20 MG Heparin Sodium (Porcine) (Heparin 10 Unit/ ml 5 ml Flush) 5 ml PRN PRN FLUSH 05/09/18 00:15 06/08/18 00:14 05/11/18 14:40 5 ML Warfarin Sodium (Coumadin Tab) 2.5 mg DAILY@1600 PO 05/09/18 16:00 06/02/18 15:59 05/11/18 16:02 2.5 MG Pantoprazole Sodium (Protonix Tab) 40 mg BID PO 05/09/18 21:00 06/08/18 20:59 05/10/18 20:27 40 MG Albuterol/ Ipratropium (Duoneb) 3 ml Q4 PRN INH 05/09/18 13:30 06/08/18 13:29 Prednisone (PredniSONE TAB) 10 mg DAILY PO 05/12/18 09:00 06/08/18 16:29 Prednisone (PredniSONE TAB) 10 mg QPM PRN PO 05/11/18 12:30 06/10/18 12:29 Iron Sucrose 100 mg/Sodium Chloride 105 ml @ 420 mls/hr DAILY IV 05/12/18 09:00 05/13/18 09:14 Epoetin Edinson (Procrit Inj) 40,000 units 1700 ONCE SQ 05/11/18 17:00 05/11/18 17:01 Review of Systems Constitutional: + weakness, + fatigue Respiratory: No cough, No shortness of breath, No hemoptysis Cardiovascular: No chest pain Abdomen: No pain, No nausea, No vomiting Musculoskeletal: + joint pain (right knee pain) Genitourinary - Male: No hematuria Neurologic: + weakness Hematologic / Lymphatic: No abnormal bleeding/bruising Physical Exam Date Time Temp Pulse Resp B/P (MAP) Pulse Ox O2 Delivery O2 Flow Rate FiO2 05/11/18 15:07 37.4 105 18 136/74 (94) 92 Room Air 05/11/18 07:29 37.1 94 16 151/78 (102) 92 Room Air 05/11/18 07:27 Room Air 05/10/18 23:23 Room Air 05/10/18 23:00 37.3 88 18 129/75 (93) 93 Room Air General Appearance: + pertinent finding ENT: pharynx normal Respiratory/Chest: chest non-tender, + decreased breath sounds (in both bases) Cardiovascular: regular rate, rhythm Abdomen/GI: non tender, soft Extremities/Musculoskelatal: + swelling (in both upper extremities) Neurologic/Psych: oriented x 3, + pertinent finding (variable alertness, but easily arousable) Laboratory Results Last 24 Hours Test 05/11/18 05:41 White Blood Count 7.04 K/uL Red Blood Count 2.43 M/uL Hemoglobin 6.8 g/dL Hematocrit 22.2 % Mean Corpuscular Volume 91.4 fL Mean Corpuscular Hemoglobin 28.0 pg Mean Corpuscular Hemoglobin Concent 30.6 g/dl RDW Standard Deviation 53.5 fL RDW Coefficient of Variation 16.0 % Platelet Count 216 K/uL Mean Platelet Volume 9.3 fL Sodium Level 136 mmol/L Potassium Level 3.7 mmol/L Chloride Level 102 mmol/L Carbon Dioxide Level 28 mmol/L Anion Gap 6.0 mmol/L Blood Urea Nitrogen 21 mg/dl Creatinine 1.35 mg/dl Est Creatinine Clear Calc Drug Dose 51.6 ml/min Estimated GFR () 58.3 Estimated GFR (Non- 50.3 BUN/Creatinine Ratio 15.7 Random Glucose 90 mg/dl Calcium Level 7.7 mg/dl Iron Level 19 mcg/dl Assessment & Plan Mr. Davis has numerous medical issues, many of which are more imminent threats to his life than his cancer. He has a lung adenocarcinoma and may be stage IV, depending on the origin of the solid-appearing nodule in his RLL. However, he is bacteremic and has a septic arthritis and will need to finish treatment for these issues before chemo. He will also need to get substantially stronger in order to tolerate chemo, as his PS (ECOG 3) is not safe for chemo. Furthermore, his serum albumin is less than 2, which is a very poor prognostic sign. In cancer patients, this portends a survival in weeks to months at best. If he can make a significant improvement, we could consider completing his staging and discussing systemic therapy. However, hospice may also be a reasonable consideration, given his overall poor prognosis and multiple concomitant issues. On another note, he is very anemic and is religiously opposed to blood transfusions. He is starting IV iron and I would add Procrit 40K units SC weekly. We should also make sure his other hematinics (like B12 and Folate) are adequate, to maximize his response to growth factors.
[2018-05-11] MEDS ORDERED: EPOETIN ALFA 40,000 UNITS/ML VIAL SQ ONE (17:00)
[2018-05-11 20:45] VITALS: BP 124/66; PULSE 102
[2018-05-11 22:55] VITALS: BP 136/69; PULSE 91; TEMP 37.2; O2SAT 92
[2018-05-12] VITALS (8 sets, daily range): BP systolic 108–138; BP diastolic 67–79; PULSE 88–94; TEMP 36.9–37; O2SAT 92–96
[2018-05-12] MEDS: OXYCODONE HCL IR 5 MG TAB (IMMEDIATE RELEASE) PO PRN ×4 (04:23→17:05)
[2018-05-12 06:22] LABS: HEMATOCRIT 22.3 % (42-52); HEMOGLOBIN 6.8 g/dL (14.0-18.0); MEAN CELL VOLUME 91.4 fL (80-100); MEAN CORPUSCULAR HEMOGLOBIN 27.9 pg (25-34); MEAN CORPUSCULAR HGB CONC 30.5 g/dl (32-36); MEAN PLATELET VOLUME 9.2 fL (7.4-10.4); PLATELET COUNT 218 K/uL (130-400); RED CELL DISTRIBUTION WIDTH SD 53.2 fL (36.4-46.3); WHITE BLOOD COUNT 6.04 K/uL (4.8-10.8)
[2018-05-12 06:31] LABS: INR 1.5 (0.9-1.1)
[2018-05-12 06:48] LABS: ALBUMIN 1.5 gm/dl (3.4-5.0); CALCIUM 7.7 mg/dl (8.5-10.1); CREATININE 1.31 mg/dl (0.60-1.40); POTASSIUM 3.4 mmol/L (3.5-5.1); TOTAL PROTEIN 5.6 gm/dl (6.4-8.2)
[2018-05-12 06:53] LABS: BASO % 0.5 %; BASO ABS # 0.03 K/uL (0-0.2); EOS % 1.8 %; EOS ABS # 0.11 K/uL (0-0.5); IG# 0.29 K/uL (0.00-0.02); LYMPH % 15.7 %; LYMPH ABS # 0.95 K/uL (1.2-3.4); MONO % 8.6 %; MONO ABS # 0.52 K/uL (0.11-0.59); NEUT % 68.6 %; NEUT ABS # 4.14 K/uL (1.4-6.5)
[2018-05-12] MEDS: LEFLUNOMIDE 10 MG TAB PO SCH (08:19)
[2018-05-12] MEDS: DOCUSATE SODIUM 100 MG CAP PO SCH ×2 (08:19→20:51)
[2018-05-12] MEDS ORDERED: POTASSIUM CHLORIDE 10 MEQ TABCR PO STA (08:19)
[2018-05-12] MEDS: POLYETHYLENE (MIRALAX) 17 GM PACK PO SCH ×2 (08:20→20:51)
[2018-05-12] MEDS: AMLODIPINE BESYLATE 5 MG TAB PO SCH (08:20)
[2018-05-12] MEDS: PRAVASTATIN SOD 10 MG TAB PO SCH (08:20)
[2018-05-12] MEDS: PANTOprazole SOD 40 MG TAB PO SCH ×2 (08:21→20:54)
[2018-05-12] MEDS: SODIUM BICARBONATE 650 MG TAB PO SCH ×3 (08:21→20:54)
[2018-05-12] MEDS: LISINOPRIL 20 MG TAB PO SCH (08:22)
[2018-05-12] MEDS: METOPROLOL TARTRATE 25 MG TAB PO SCH ×2 (08:22→20:54)
[2018-05-12] MEDS: IRON SUCROSE INJ 100 MG in SODIUM CHLORIDE 0.9% 100ML 100 ML IV SCH (09:06)
--- NOTE | 2018-05-12 11:19 | SURGERY PROGRESS NOTE ---
DATE: 05/12/2018 Mr. Davis was seen today on 05/12/2018. Hemoglobin remains low at 6.8. His vital signs have been stable. He is satting well on room air. His white count is 6040. His PT/INR are up to 16 and 1.5. BUN and creatinine are stable at 19 and 1.31. ASSESSMENT AND PLAN: Adenocarcinoma of left upper lobe. Dr. Cartwright's input is greatly appreciated. This patient is not a surgical candidate. It does not, however, appear to me that he has metastatic disease, although a PET scan would be helpful in that regard. I do not think that the lesions on the right represented anything neoplastic. Having said that, this patient is not a candidate for much of anything given his multiple comorbid problems and I agree with Dr. Cartwright's assessment.
--- NOTE | 2018-05-12 12:11 | Hospitalist Progress Note ---
Hospitalist Progress Note Date of Service May 12, 2018. Subjective Pt evaluation today including: conversation w/ patient, conversation w/ family , conversation w/ agricultural consultant (Palliative Care, oncology) Patient feels weak. Denies shortness of breath or cough. No chest pain or abdominal pain. He is moving his bowels. Daughter and patient in agreement at this time that they would like him to complete his course of IV antibiotics and received the IV iron treatments while here, but after the antibiotic. Is completed, he would like to transition to hospice care. He is not interested in pursuing chemotherapy or radiation treatment for his lung cancer after that. They are agreeable to palliative care consultation. He would also like to return home if possible to get his IV antibiotics there. All Other Systems: Reviewed and Negative Objective Vital Signs Date Time Temp Pulse Resp B/P (MAP) Pulse Ox O2 Delivery O2 Flow Rate FiO2 05/12/18 12:08 36.9 90 17 123/76 (92) 96 Room Air 05/12/18 08:26 94 129/74 (92) 05/12/18 08:05 93 Room Air 05/12/18 07:35 Room Air 05/12/18 07:35 36.9 90 17 138/79 (98) 93 Room Air 05/11/18 23:09 Room Air 05/11/18 22:55 37.2 91 18 136/69 (91) 92 Room Air 05/11/18 20:45 102 124/66 (85) 05/11/18 16:15 92 05/11/18 15:07 37.4 105 18 136/74 (94) 92 Room Air Physical Exam General Appearance: WD/WN, no apparent distress (Sitting in the chair but dozing off at times throughout our conversation) Eyes: normal inspection, sclerae normal ENT: hearing grossly normal Neck: trachea midline Respiratory/Chest: no respiratory distress, no accessory muscle use, + wheezing (Scattered expiratory wheezes, rhonchi at the right base) Cardiovascular: regular rate, rhythm, + pertinent finding (Anasarca with 2+ pitting edema in all 4 extremities) Abdomen: normal bowel sounds, non tender, soft Extremities: non-tender, + swelling (As above), + pertinent finding (Swelling and stiffness in the bilateral hand joints) Neurologic/Psychiatric: alert, + depressed affect Skin: normal color, warm/dry, no rash Laboratory Results Last 24 Hours Test 05/11/18 17:43 05/12/18 05:19 Iron Level 45 mcg/dl Transferrin 129 mg/dl Transferrin % Saturation 25 % Ferritin 2192.9 ng/ml Vitamin B12 Level 768 pg/mL Folate 6.53 ng/mL White Blood Count 6.04 K/uL Red Blood Count 2.44 M/uL Hemoglobin 6.8 g/dL Hematocrit 22.3 % Mean Corpuscular Volume 91.4 fL Mean Corpuscular Hemoglobin 27.9 pg Mean Corpuscular Hemoglobin Concent 30.5 g/dl Platelet Count 218 K/uL Mean Platelet Volume 9.2 fL Neutrophils (%) (Auto) 68.6 % Lymphocytes (%) (Auto) 15.7 % Monocytes (%) (Auto) 8.6 % Eosinophils (%) (Auto) 1.8 % Basophils (%) (Auto) 0.5 % Neutrophils # (Auto) 4.14 K/uL Lymphocytes # (Auto) 0.95 K/uL Monocytes # (Auto) 0.52 K/uL Eosinophils # (Auto) 0.11 K/uL Basophils # (Auto) 0.03 K/uL RDW Standard Deviation 53.2 fL RDW Coefficient of Variation 16.0 % Immature Granulocyte % (Auto) 4.8 % Immature Granulocyte # (Auto) 0.29 K/uL Rouleau 1+ Prothrombin Time 16.0 SECONDS Prothromb Time International Ratio 1.5 Sodium Level 138 mmol/L Potassium Level 3.4 mmol/L Chloride Level 103 mmol/L Carbon Dioxide Level 28 mmol/L Anion Gap 7.0 mmol/L Blood Urea Nitrogen 19 mg/dl Creatinine 1.31 mg/dl Est Creatinine Clear Calc Drug Dose 53.2 ml/min Estimated GFR () 60.4 Estimated GFR (Non- 52.1 BUN/Creatinine Ratio 14.7 Random Glucose 102 mg/dl Calcium Level 7.7 mg/dl Total Bilirubin 0.5 mg/dl Direct Bilirubin 0.1 mg/dl Aspartate Amino Transf (AST/SGOT) 41 U/L Alanine Aminotransferase (ALT/SGPT) 34 U/L Alkaline Phosphatase 87 U/L Total Protein 5.6 gm/dl Albumin 1.5 gm/dl Assessment and Plan This patient is a 77-year-old white male with a history of recent right MCA CVA , COPD, HTN, PE, long-standing rheumatoid arthritis on chronic prednisone, PAF on Coumadin, hyperlipidemia, cerebral aneurysms, gout, and chronic diastolic CHF , who was admitted on April 30, 2018 with pneumonia with possible sepsis, bacteremia likely from right knee infection, and severe hyperkalemia. Possible hospital-acquired pneumonia patient was in [facility] and was discharged on April 05, 2018 Knee and blood cultures are positive for MSSA, and he will require 6 weeks of Iv antibiotics. Right knee septic arthritis, lateral and medial meniscus tears, synovitis, partial anterior cruciate ligament tear, gouty crystals seen on fluid analysis. s/p Right Knee Arthroscopic Irrigation and Debridement, partial medial and lateral meniscectomy, debridement ACL, synovectomy by Dr. Bertha Ellison 05/02 WBAT RLE -Pain control as needed with acetaminophen, oxycodone as needed -No longer going to rehab as he wants to transition to home hospice given the new diagnosis of cancer as below -Follow-up with orthopedics within 2 weeks after discharge Acute blood loss anemia/anemia of chronic disease-has long-standing anemia likely secondary to rheumatoid arthritis and various immune modulating medications, pt has refused blood transfusion based on christianity beliefs- hemoglobin stable today at 6.8. He is hemodynamically stable. Serum iron level was low initially, but ferritin and transferrin sat were not checked prior to getting his IV Venofer yesterday. Therefore, ferritin appears very high that he had received IV iron. -Continue IV Venofer 100 mg daily 3 doses-today day #2 -Give Procrit 40,000 units subcu once weekly-received 1 dose here on 05/11 -Follow CBC in the morning -B12 normal at 768, folate low normal at 6.53-will replace folic acid 1 mg p.o. once daily Hypokalemia-potassium low today at 3.4 -Replete with potassium chloride 40 mEq p.o. 1 MSSA bacteremia, blood cultures and culture of aspiration of fluid positive, , repeat cultures sent once again and cultures from 05/05 negative Is on Rocephin IV after discussed with infectious disease, infectious disease input feels 6 week total length of IV antibiotic for septic arthritis and MSSA bacteremia, now does have negative cultures and had the picc line placed 05/08 -Plan for home IV antibiotics upon discharge tomorrow for total of 6 weeks Severe hyperkalemia on admission, resolved Left upper lobe lung mass-proven to be adenocarcinoma, ruled out pneumonia. Dr Paul of thoracic surgery performed bronchoscopy 05/08 for tissue biopsy. Lymph node sampling was insufficient to see if has lymphatic spread. Unclear if has other metastases, would require PET scan as an outpatient -Hematology/oncology consultation appreciated -Patient and his daughter have decided that they will not pursue any treatment given the overall poor prognosis and he would rather have better quality of life rather than undergo chemotherapy and radiation-hospice to be initiated after completion of IV antibiotic therapy for his knee infection -He is severely hypoalbuminemic, is anemic, and has very poor functional status and multiple comorbidities-his prognosis is not good overall -Can follow-up with oncology as an outpatient after discharge if he changes his mind about pursuing treatment for his lung cancer Acute on chronic kidney disease stage III. Continues to be improved and stable , creatinine 1.31 -Avoid nephrotoxins -Renally dose medications Coumadin coagulopathy with INR is 6.9 upon admission, s/p 1 dose of vitamin K, restarted oral Coumadin, With history of pulmonary embolism/afib, iv vitamin K reduced INR for bronchoscopy and possible biopsy 05/08, restarted oral dose -Follow PT/INR-INR today still subtherapeutic at 1.5 -Continue Coumadin . History of atrial fibrillation, on Coumadin. seem to be having paroxysmal runs of afib but is rate controlled and asymptomatic -Continue metoprolol, Coumadin Hx of Rheumatoid arthritis, is on oral steroid prior to admission, had been on hydrocortisone IV here, resumed po prednisone -Continue Prinzide 10 mg in the morning and 10 mg in the afternoon as needed -Remains on his DMARD drug here called [facility]-I contacted his soiled linen distributor, Dr. Neff at [phone], to see if she thinks his medication should be held while he is currently being treated for his knee infection and bacteremia. I left a message and am awaiting a call back. Severe constipation, suppository and enema resolved. -Continue MiraLAX twice daily Cerebral aneurysm-3 of them were found on CT angiogram here-he saw the neurosurgeon at [place] who did not want to pursue any intervention until his lung mass was further worked up. Now that he has known lung adenocarcinoma, there will not be any intervention of the cerebral and Prophylaxis-Coumadin Disposition-to home tomorrow with home IV antibiotics and when completed, will transition to hospice care Appreciate palliative care consultation-POLST form filled out today.
[2018-05-12] MEDS: CEFTRIAXONE SOD INJ 1 GM in DEXTROSE 5% ADD-VANTAGE 50ML 50 ML IV SCH (13:47)
--- NOTE | 2018-05-12 15:25 | Palliative Care Consultation ---
Consultation Date of Consultation: May 12, 2018. Requesting Physician: Dr. Wakefield Attending Physician: Dr. Wakefield Reason for Consultation: Goals of care, POLST History of Present Illness This is a 77 year old male patient with PMH recent embolic right MCA CVA, COPD, HTN, PE, long-standing rheumatoid arthritis on chronic prednisone, paroxysmal afib on Coumadin, hyperlipidemia, cerebral aneurysms, gout, and chronic diastolic CHF. Admitted on April 30, 2018 with pneumonia with possible sepsis, bacteremia likely from right knee infection, and severe hyperkalemia. Possible hospital-acquired pneumonia patient was in [facility] and was discharged on April 05, 2018. Knee and blood cultures are positive for MSSA, and he will require 6 weeks of Iv antibiotics. Patient admitted for IV abx. During previous hospitalization was found to have incidental finding of AFSHAN lung mass for which he underwent ENB and EBUS on Friday which revealed AFSHAN lung adenocarcinoma. Patient has poor performance status to begin with. Has anasarca, albumin 1.5, which of course is poor prognostic sign. Patient is anemic but his mu-ism beliefs prohibit him from receiving blood transfusions. Patient has indicated that he wants to go home with hospice, his daughter Luciana is supportive. Palliative care consulted. I met with patient and his daughter, Luciana, in room 351. Patient awake, alert and oriented x4, sitting up in chair denying any complaints. Daughter Luciana is supportive and knowledgeable about plan. Patient states he wants to go home with IV abx for the knee and pneumonia to get him as well as possible. He then wants to transition to hospice care at home. daughter Luciana stated family can provide his care. POLST form completed as follows: DNR, comfort measures only, abx with comfort as the goal, no artificial hydration/nutrition. Daughter Luciana Mccray is POA. Past Medical/Surgical History Medical History: 1. Like I mentioned in the above which include a CVA with left sided residual weakness 2. Rheumatoid arthritis. 3. Pulmonary embolization in the lung. 4. AFib on Coumadin. 5. Hypertension. 6. Rheumatoid arthritis. 7. Dyslipidemia. Social History Smoking Status: Former Smoker History of Alcohol Use: Yes (OCC BEER ) Marital Status: Occupation Status: retired Review of Systems Constitutional: + weakness ENT: No trouble swallowing Respiratory: No cough, No shortness of breath Cardiac: + edema, No chest pain Abdomen: No pain, No nausea, No vomiting Male : No problem reported Psychiatric: No depression symptoms, No anxiety Allergies Coded Allergies: No Known Allergies (Unverified , 04/30/18) Medications Current Inpatient Medications Medications (Trade) Dose Ordered Sig/Sascha Route Start Time Stop Time Status Last Admin Dose Admin Acetaminophen (Tylenol Tab) 650 mg Q4H PRN PO 04/30/18 16:30 05/30/18 16:29 05/09/18 03:47 650 MG Al Hydrox/Mg Hydrox/Simethicone (Maalox Max Susp) 15 ml Q4H PRN PO 04/30/18 16:30 05/30/18 16:29 Magnesium Hydroxide (Milk Of Magnesia Susp) 30 ml Q12H PRN PO 04/30/18 16:30 05/30/18 16:29 Zolpidem Tartrate (Ambien Tab) 5 mg HSZ PRN PO 04/30/18 16:30 05/30/18 16:29 Ondansetron HCl (Zofran Inj) 4 mg Q6H PRN IV 04/30/18 16:30 05/30/18 16:29 Polyethylene (Miralax Powder Packet) 17 gm DAILY PRN PO 04/30/18 16:30 05/30/18 16:29 Amlodipine Besylate (Norvasc Tab) 10 mg QAM PO 05/01/18 09:00 05/31/18 08:59 05/12/18 08:20 10 MG Docusate Sodium (coLACE CAP) 100 mg BID PRN PO 04/30/18 16:45 05/30/18 16:44 Pravastatin Sodium (Pravachol Tab) 10 mg QAM PO 05/01/18 09:00 05/31/18 08:59 05/12/18 08:20 10 MG Leflunomide (Arava) 20 mg QAM PO 05/01/18 09:00 05/31/18 08:59 05/12/18 08:19 20 MG Sodium Bicarbonate (Sodium Bicarbonate Tab) 650 mg TID PO 04/30/18 21:00 05/30/18 20:59 05/12/18 13:47 650 MG Hydralazine HCl (HydrALAZINE INJ) 20 mg Q4 PRN IV. 04/30/18 16:45 05/30/18 16:44 Morphine Sulfate (MoRPHine SULFATE INJ) 4 mg Q6 PRN IV 04/30/18 16:45 05/14/18 16:44 05/04/18 20:58 4 MG Docusate Sodium (coLACE CAP) 100 mg BID PO 04/30/18 21:00 05/30/18 20:59 05/11/18 08:46 100 MG Bisacodyl (Dulcolax Supp) 10 mg DAILY PRN [place] 05/01/18 13:00 05/31/18 12:59 Sodium Biphosphate/ Sodium Phosphate (Fleet Enema) 132 ml DAILY PRN [place] 05/01/18 13:00 05/31/18 12:59 05/02/18 05:00 132 ML Lidocaine (AneCream 4%) 1 appln Q12 PRN EXT 05/01/18 13:15 05/31/18 13:14 05/01/18 13:59 1 APPLN Oxycodone HCl (Roxicodone Immediate Rel Tab) `1-2 tabs for pain 1 tab ... Q4H PRN PO 05/01/18 14:00 05/15/18 13:59 05/12/18 12:51 10 MG Metoprolol Tartrate (Lopressor Tab) 12.5 mg BID PO 05/02/18 09:00 06/01/18 08:59 05/12/18 08:22 12.5 MG Ceftriaxone Sodium 1 gm/ Dextrose 50 ml @ 100 mls/hr Q24H IV 05/03/18 14:00 05/17/18 13:59 05/12/18 13:47 100 MLS/HR Polyethylene (Miralax Powder Packet) 17 gm BID PO 05/05/18 21:00 05/31/18 08:59 Acetaminophen (Tylenol Tab) 1,000 mg Q8 PRN PO 05/08/18 11:15 06/07/18 11:14 05/09/18 23:12 1,000 MG Lisinopril (Zestril Tab) 20 mg QAM PO 05/09/18 09:00 06/08/18 08:59 05/12/18 08:22 20 MG Heparin Sodium (Porcine) (Heparin 10 Unit/ ml 5 ml Flush) 5 ml PRN PRN FLUSH 05/09/18 00:15 06/08/18 00:14 05/12/18 14:23 5 ML Warfarin Sodium (Coumadin Tab) 2.5 mg DAILY@1600 PO 05/09/18 16:00 06/02/18 15:59 05/11/18 16:02 2.5 MG Pantoprazole Sodium (Protonix Tab) 40 mg BID PO 05/09/18 21:00 06/08/18 20:59 05/12/18 08:21 40 MG Albuterol/ Ipratropium (Duoneb) 3 ml Q4 PRN INH 05/09/18 13:30 06/08/18 13:29 Prednisone (PredniSONE TAB) 10 mg DAILY PO 05/12/18 09:00 06/08/18 16:29 05/12/18 08:21 10 MG Prednisone (PredniSONE TAB) 10 mg QPM PRN PO 05/11/18 12:30 06/10/18 12:29 Iron Sucrose 100 mg/Sodium Chloride 105 ml @ 420 mls/hr DAILY IV 05/12/18 09:00 05/13/18 09:14 05/12/18 09:06 420 MLS/HR Folic Acid (Folvite Tab) 1 mg QAM PO 05/12/18 09:00 06/11/18 08:59 05/12/18 09:30 1 MG Physical Exam Date Time Temp Pulse Resp B/P (MAP) Pulse Ox O2 Delivery O2 Flow Rate FiO2 05/12/18 15:03 36.9 90 20 134/77 (96) 96 Room Air 05/12/18 12:08 36.9 90 17 123/76 (92) 96 Room Air 05/12/18 08:26 94 129/74 (92) 05/12/18 08:05 93 Room Air 05/12/18 07:35 Room Air 05/12/18 07:35 36.9 90 17 138/79 (98) 93 Room Air 05/11/18 23:09 Room Air 05/11/18 22:55 37.2 91 18 136/69 (91) 92 Room Air 05/11/18 20:45 102 124/66 (85) 05/11/18 16:15 92 General Appearance: no apparent distress, + obese ENT: hearing grossly normal Neck: supple, no JVD Respiratory: no respiratory distress, no accessory muscle use, + decreased breath sounds Cardiovascular: regular rate, rhythm, + pertinent finding (widespread edema) Abdomen: normal bowel sounds, non tender, soft Musculoskeletal: pertinent finding (anasarca) Neurologic/Psychiatric: alert, normal mood/affect, oriented x 3 Skin: + pallor Laboratory Results Last 24 Hours Test 05/11/18 17:43 05/12/18 05:19 Iron Level 45 mcg/dl Transferrin 129 mg/dl Transferrin % Saturation 25 % Ferritin 2192.9 ng/ml Vitamin B12 Level 768 pg/mL Folate 6.53 ng/mL White Blood Count 6.04 K/uL Red Blood Count 2.44 M/uL Hemoglobin 6.8 g/dL Hematocrit 22.3 % Mean Corpuscular Volume 91.4 fL Mean Corpuscular Hemoglobin 27.9 pg Mean Corpuscular Hemoglobin Concent 30.5 g/dl Platelet Count 218 K/uL Mean Platelet Volume 9.2 fL Neutrophils (%) (Auto) 68.6 % Lymphocytes (%) (Auto) 15.7 % Monocytes (%) (Auto) 8.6 % Eosinophils (%) (Auto) 1.8 % Basophils (%) (Auto) 0.5 % Neutrophils # (Auto) 4.14 K/uL Lymphocytes # (Auto) 0.95 K/uL Monocytes # (Auto) 0.52 K/uL Eosinophils # (Auto) 0.11 K/uL Basophils # (Auto) 0.03 K/uL RDW Standard Deviation 53.2 fL RDW Coefficient of Variation 16.0 % Immature Granulocyte % (Auto) 4.8 % Immature Granulocyte # (Auto) 0.29 K/uL Rouleau 1+ Prothrombin Time 16.0 SECONDS Prothromb Time International Ratio 1.5 Sodium Level 138 mmol/L Potassium Level 3.4 mmol/L Chloride Level 103 mmol/L Carbon Dioxide Level 28 mmol/L Anion Gap 7.0 mmol/L Blood Urea Nitrogen 19 mg/dl Creatinine 1.31 mg/dl Est Creatinine Clear Calc Drug Dose 53.2 ml/min Estimated GFR () 60.4 Estimated GFR (Non- 52.1 BUN/Creatinine Ratio 14.7 Random Glucose 102 mg/dl Calcium Level 7.7 mg/dl Total Bilirubin 0.5 mg/dl Direct Bilirubin 0.1 mg/dl Aspartate Amino Transf (AST/SGOT) 41 U/L Alanine Aminotransferase (ALT/SGPT) 34 U/L Alkaline Phosphatase 87 U/L Total Protein 5.6 gm/dl Albumin 1.5 gm/dl Assessment & Plan Palliative Performance Scale: 50 % Problem list: Weakness RLL pneumonia AFSHAN lung adenocarcinoma Septic right knee- MSSA Septicemia- MSSA Goals of care POLST Palliative care recs: -As discussed with patient and his daughter, Luciana, patient is DNR. -Patient wishes to go home with home health initially to continue his course of IV abx with eventual transition to hospice. He DOES NOT want to return to the hospital. -POLST form completed as follows: DNR, comfort measures only, abx with comfort as the goal, no artificial hydration/nutrition. Daughter Luciana Mccray is POA. -Continue Roxicodone as needed for knee pain. No other symptoms at this time. -No further workup or treatment for the cancer. Thank you kindly for this consult. Please contact me with any further palliative care needs. Total time spent 50 minutes with >50% of time spent at bedside with patient and daughter/POA discussing goals of care and completing POLST form.
[2018-05-12] MEDS: ACETAMINOPHEN 500 MG TAB PO PRN (16:12)
[2018-05-12] MEDS: WARFARIN SOD 2.5 MG TAB PO SCH (16:12)
[2018-05-13] MEDS: OXYCODONE HCL IR 5 MG TAB (IMMEDIATE RELEASE) PO PRN ×2 (05:00→13:40)
[2018-05-13 05:52] LABS: INR 1.8 (0.9-1.1)
[2018-05-13 06:10] LABS: HEMATOCRIT 22.3 % (42-52); HEMOGLOBIN 6.7 g/dL (14.0-18.0); MEAN CELL VOLUME 91.8 fL (80-100); MEAN CORPUSCULAR HEMOGLOBIN 27.6 pg (25-34); MEAN PLATELET VOLUME 8.8 fL (7.4-10.4); PLATELET COUNT 238 K/uL (130-400); RED CELL DISTRIBUTION WIDTH CV 15.9 % (11.5-14.5); RED CELL DISTRIBUTION WIDTH SD 53.4 fL (36.4-46.3); WHITE BLOOD COUNT 6.36 K/uL (4.8-10.8)
[2018-05-13 06:20] LABS: CALCIUM 7.5 mg/dl (8.5-10.1); CREATININE 1.55 mg/dl (0.60-1.40); POTASSIUM 4.5 mmol/L (3.5-5.1)
[2018-05-13 07:52] VITALS: BP 124/76; PULSE 92; TEMP 36.9; O2SAT 92
[2018-05-13 07:58] VITALS: O2SAT 92
--- NOTE | 2018-05-13 08:47 | SURGERY PROGRESS NOTE ---
DATE: 05/13/2018 Mr. Davis had a quiet night. He is still on room air, and his vital signs are stable. Hemoglobin is down to 6.7, but he does not want a transfusion. His PT and INR are 18.9 and 1.8. His BUN and creatinine are 20 and 1.55, which is a bit above his baseline. Patient is going to be discharged home on hospice, which I think is appropriate. Greatly appreciate palliative medicine input. I will sign off at this point, and if I am needed, please call.
[2018-05-13] MEDS: POLYETHYLENE (MIRALAX) 17 GM PACK PO SCH (09:00)
[2018-05-13] MEDS: DOCUSATE SODIUM 100 MG CAP PO SCH (09:00)
[2018-05-13] MEDS: LISINOPRIL 20 MG TAB PO SCH (09:03)
[2018-05-13] MEDS: SODIUM BICARBONATE 650 MG TAB PO SCH ×2 (09:03→13:39)
[2018-05-13] MEDS: AMLODIPINE BESYLATE 5 MG TAB PO SCH (09:03)
[2018-05-13] MEDS: PANTOprazole SOD 40 MG TAB PO SCH (09:03)
[2018-05-13] MEDS: PRAVASTATIN SOD 10 MG TAB PO SCH (09:04)
[2018-05-13] MEDS: METOPROLOL TARTRATE 25 MG TAB PO SCH (09:05)
[2018-05-13 09:06] VITALS: BP 127/74; PULSE 106
[2018-05-13] MEDS: IRON SUCROSE INJ 100 MG in SODIUM CHLORIDE 0.9% 100ML 100 ML IV SCH (09:11)
[2018-05-13] MEDS ORDERED: PRVC10 PO (10:13)
[2018-05-13] MEDS ORDERED: [UNRECOGNIZED DRUG - CODE] EXT (10:13)
[2018-05-13] MEDS ORDERED: FLV1 PO (10:13)
[2018-05-13] MEDS ORDERED: CMD25 PO (10:13)
[2018-05-13] MEDS ORDERED: LPR25 PO (10:13)
[2018-05-13] MEDS ORDERED: PRED10TA PO (10:13)
[2018-05-13] MEDS ORDERED: AMLO10TA3 PO (10:13)
[2018-05-13] MEDS ORDERED: MRLP17 PO (10:13)
[2018-05-13] MEDS ORDERED: LISI20TA3 PO (10:13)
[2018-05-13] MEDS ORDERED: VNTHFA/IN INH (10:13)
[2018-05-13] MEDS ORDERED: CEFT1INJ6 IV (10:13)
[2018-05-13] MEDS ORDERED: RXC5 PO (10:13)
[2018-05-13] MEDS ORDERED: SODI325T9 PO (10:13)
[2018-05-13] MEDS ORDERED: PANT40TA2 PO (10:13)
--- NOTE | 2018-05-13 11:09 | Discharge Instructions ---
Discharge Instructions Date of Service May 13, 2018. Admission Reason for Admission: Pna, Hyperkalemia Discharge Discharge Diagnosis / Problem: Septic arthritis, Staphylococcus bacteremia, lung cancer Discharge Goals Goal(s): Improve disease control, Learn about illness, Diagnostic testing, Therapeutic intervention Activity Recommendations Activity Limitations: as noted below Exercise/Sports Limitations: gradually increase as tolerated Shower/Bathe: no limitations (Keep PICC line dry) . Instructions / Follow-Up Instructions / Follow-Up You were admitted with an infection in your knee and bloodstream, as well as a pneumonia. This was treated with knee surgery and IV antibiotics which will need to continue for 4 more weeks at least. You had a bronchoscopy with biopsies of a lung mass that was confirmed to be cancer of the lung. You have decided to pursue hospice care after completion of your IV antibiotics. We support your decision to do so. You can continue to take your medications as prescribed, except your stonecutter assistant did recommend stopping your Arava permanently. If you continue on your Coumadin, you should have your PT/INR checked within the next 2-3 days. You are severely anemic and were treated with IV iron and a medication called Procrit which helps stimulate the bone marrow to make red blood cells as you declined a red blood cell transfusion. If possible, please follow-up with your primary care physician within 1-2 weeks , as well as the orthopedic surgeon. Current Hospital Diet Patient's current hospital diet: AHA Diet (Heart Healthy) Discharge Diet Recommended Diet: AHA Diet (Heart Healthy) Procedures Procedures Performed: 1. Endobronchial Ultrasound with biopsy; Navigational Bronchoscopy 2. Right Knee Arthroscopic Irrigation and Debridement, partial medial and lateral menisectomy, debridement ACL, synovectomy 3. Right lower extremity venous Doppler 4. Renal ultrasound 5. Multiple chest x-rays 6. Knee x-ray 7. CT chest Pending Studies Studies pending at discharge: yes List of pending studies: Genetic analysis of lung biopsy Laboratory Results Last 24 Hours Test 05/13/18 05:19 White Blood Count 6.36 K/uL Red Blood Count 2.43 M/uL Hemoglobin 6.7 g/dL Hematocrit 22.3 % Mean Corpuscular Volume 91.8 fL Mean Corpuscular Hemoglobin 27.6 pg Mean Corpuscular Hemoglobin Concent 30.0 g/dl RDW Standard Deviation 53.4 fL RDW Coefficient of Variation 15.9 % Platelet Count 238 K/uL Mean Platelet Volume 8.8 fL Prothrombin Time 18.9 SECONDS Prothromb Time International Ratio 1.8 Sodium Level 135 mmol/L Potassium Level 4.5 mmol/L Chloride Level 102 mmol/L Carbon Dioxide Level 25 mmol/L Anion Gap 8.0 mmol/L Blood Urea Nitrogen 20 mg/dl Creatinine 1.55 mg/dl Est Creatinine Clear Calc Drug Dose 45.4 ml/min Estimated GFR () 49.3 Estimated GFR (Non- 42.5 BUN/Creatinine Ratio 13.0 Random Glucose 155 mg/dl Calcium Level 7.5 mg/dl Medical Emergencies . Who to Call and When: Medical Emergencies: If at any time you feel your situation is an emergency, please call 911 immediately. . Non-Emergent Contact Non-Emergency issues call your: Primary Care Provider Call Non-Emergent contact if: temperature is above 101, your pain is not controlled, your pain is worsening, your pain is unusual for you, your pain is concerning you, wound has increased drainage, wound has increased redness, wound has increased pain, you have any medication questions You have worsening shortness of breath, cough, or chest pain. . . "Provider Documentation" section prepared by Marily Wakefield. . Mass Spectroscopist Recommendations Mass Spectroscopist Recommendations: ACTIVITY RECOMMENDATIONS: * You may walk on the leg with or without crutches as comfort permits. * Bending of the knee should start at once. * Do not shower for 48 hours following surgery. SPECIAL CARE INSTRUCTIONS: * You may cleanse the skin adjacent to the small wounds with soap and water at the time of the first dressing change. * The application of an ice bag to the front and sides of the knee will decrease swelling and discomfort for the first 48 hours. * The small incisions may be sore and develop bruising. This bruising does not require any special care. SPECIAL PRECAUTIONS: * If you experience unusual pain unrelieved by prescriptions, temperature elevation (100 degrees F. or above) or progressive swelling or bleeding, you should contact our office at for further evaluation. * You may have been prescribed pain medication. If you experience nausea and/or fine skin rash, discontinue this medication and contact our office at for an alternate medication. DRESSING: * Dressing should be comfortable and absorb any leakage of fluid and/or blood. * The dressing may become moist or bloodstained. Change regularly if this happens. * Once the wounds are dry, bandaids can be placed over the small surgical incisions. * Bandaids may be used over next several days as needed and can be discontinued when there is not further drainage from the wounds. FOLLOW UP VISIT: If appointment is not already scheduled: Please call [facility] to make a follow-up appointment with Dr Ellison in 10-14 days from the day of your surgery at . [place] Drug Monitoring Program Search Results: patient reviewed within database, no issues identified
[2018-05-13 11:11] VITALS: BP 110/69; PULSE 89; TEMP 37.1; O2SAT 95
--- NOTE | 2018-05-13 11:29 | Discharge Summary ---
Discharge Summary Date of Service May 13, 2018. 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 Suspected hospital-acquired pneumonia Lateral and medial meniscus tears, synovitis, partial anterior cruciate ligament tear Acute gout right knee Acute blood loss anemia in the setting of anemia of chronic disease and of iron deficiency Folic acid borderline deficiency Hypokalemia Severe hypoalbuminemic Acute on chronic kidney disease stage III Coumadin coagulopathy with INR is 6.9 upon admission Severe constipation Procedures: 1. Endobronchial Ultrasound with biopsy; Navigational Bronchoscopy 2. Right Knee Arthroscopic Irrigation and Debridement, partial medial and lateral menisectomy, debridement ACL, synovectomy 3. Right lower extremity venous Doppler 4. Renal ultrasound 5. Multiple chest x-rays 6. Knee x-ray 7. CT chest 8. Echocardiogram Consultations: Orthopedic surgery Thoracic surgery Hematology/oncology Nephrology Infectious disease Palliative care medicine Medication Reconciliation New Medications: Albuterol Hfa (Ventolin Hfa) 200 Puffs/96785 Mcg Aers 2 PUFFS INH Q4H PRN for SOB/Wheezing, #1 INHALER Ceftriaxone Sodium (Rocephin) 1 Gm Inj 1 GM IV Q24H for 28 Days, #28 VIAL Folic Acid (Folic Acid) 1 Mg Tab 1 MG PO QAM for 30 Days, #30 TAB Lidocaine (Anecream) 45 Appln/15 Gm Cr 1 APPLN EXT Q12 PRN for pain for 30 Days, #1 TU Please give tube from hospital Metoprolol Tartrate (Lopressor) 25 Mg Tab 12.5 MG PO BID for 30 Days, #30 TAB Oxycodone HCl (Oxycodone HCl) 5 Mg Tab 5 MG PO Q4H PRN for Pain for 7 Days, #42 TAB Pantoprazole (Pantoprazole Sodium) 40 Mg Tab 40 MG PO BID for 30 Days, #60 TAB Polyethylene (Miralax) 17 Gm Pow 17 GM PO BID for 30 Days, #1 BTL Pravastatin Sod (Pravastatin Sodium) 10 Mg Tab 10 MG PO QAM, #30 TAB Warfarin Sod (Coumadin) 2.5 Mg Tab 2.5 MG PO DAILY@1600 for 30 Days, #30 TAB Continued Medications: Acetaminophen (Tylenol) 500 Mg Tab 1000 MG PO Q8 PRN for Pain Amlodipine (Norvasc) 10 Mg Tab 10 MG PO QAM for 30 Days, #30 TAB (This prescription has been renewed) Docusate Sodium (Colace) 100 Mg Cap 1 CAP PO BID PRN for Constipation Lisinopril (Prinivil) 20 Mg Tab 20 MG PO QAM, #30 TAB (This prescription has been renewed) Prednisone (Prednisone) 10 Mg Tab 10 MG PO QAM for 30 Days, #60 TAB (This prescription has been renewed) And can take an extra 10mg qpm as needed for arthritis pain Sodium Bicarbonate (Antacid) (Sodium Bicarbonate) 325 Mg Tab 650 MG PO TID, #180 TAB (This prescription has been renewed) Discontinued Medications: Leflunomide (Arava) 20 Mg Tab 20 MG PO QAM Pravastatin (Pravachol ) 20 Mg Tab 10 MG PO QAM Warfarin Sod (Jantoven) 3 Mg Tab 3 MG PO 2100 Discharge Exam Patient has pain in the right knee. Denies chest pain or shortness of breath. He is tolerating p.o., able to get his urine out, and moving his bowels. He is anxious for discharge to home. He is fairly weak but is able to ambulate with assistance Physical Exam General Appearance: WD/WN, no apparent distress (Sitting in the chair) Eyes: normal inspection, sclerae normal ENT: hearing grossly normal, mild left facial droop Neck: trachea midline Respiratory/Chest: no respiratory distress, no accessory muscle use, + wheezing (Scattered expiratory wheezes but improved from previous, rhonchi at the right base) Cardiovascular: irregularly irregular today, with normal rate, + pertinent finding (Anasarca with 3+ pitting edema in all 4 extremities) Abdomen: normal bowel sounds, non tender, soft Extremities: non-tender, + swelling (As above), + pertinent finding (Swelling and stiffness in the bilateral hand joints) Neurologic/Psychiatric: alert, + depressed affect Skin: normal color, warm/dry, no rash Review of Systems: Constitutional: + fatigue, No fever, No chills Eyes: No problem reported ENT: No problem reported Respiratory: No problem reported Cardiovascular: No chest pain Abdomen: No pain, No nausea, No vomiting, No diarrhea, No constipation, No GI bleeding Musculoskeletal: + joint pain Genitourinary - Male: No problem reported Neurologic: + weakness (Left side) Psychiatric: No problem reported Endocrine: No problem reported Hematologic / Lymphatic: No problem reported Integumentary: No problem reported Hospital Course This patient is a 77-year-old white male with a history of recent right MCA CVA , COPD, HTN, PE, long-standing rheumatoid arthritis on chronic prednisone, PAF on Coumadin, hyperlipidemia, cerebral aneurysms, gout, and chronic diastolic CHF , who was admitted on April 30, 2018 with pneumonia with possible sepsis, bacteremia likely from right knee infection, and severe hyperkalemia. Possible hospital-acquired pneumonia patient was in [facility] and was discharged on April 05, 2018 Knee and blood cultures are positive for MSSA, and he will require 6 weeks of Iv antibiotics. Right knee septic arthritis, lateral and medial meniscus tears, synovitis, partial anterior cruciate ligament tear, gouty crystals seen on fluid analysis. s/p Right Knee Arthroscopic Irrigation and Debridement, partial medial and lateral meniscectomy, debridement ACL, synovectomy by Dr. Bertha Ellison 05/02 WBAT RLE -Pain control as needed with acetaminophen, oxycodone as needed -No longer going to rehab as he wants to transition to home hospice given the new diagnosis of cancer as below -Follow-up with orthopedics within 2 weeks after discharge -Finish out 4 more weeks of IV Rocephin with PICC line in place Acute blood loss anemia/anemia of chronic disease-has long-standing anemia likely secondary to rheumatoid arthritis and various immune modulating medications, pt has refused blood transfusion based on orthodoxy beliefs- hemoglobin stable today at 6.7. He is hemodynamically stable. Serum iron level was low initially, but ferritin and transferrin sat were not checked prior to getting his IV Venofer yesterday. Therefore, ferritin appears very high that he had received IV iron. -Received 3 doses of IV Venofer 100 mg daily -Received Procrit 40,000 units subcu on 05/11 and could continue once weekly if desires -Can follow CBC as an outpatient once weekly while on antibiotics -B12 normal at 768, folate low normal at 6.53-will replace folic acid 1 mg p.o. once daily Hypokalemia-potassium replaced and repeat BMP normal MSSA bacteremia, blood cultures and culture of aspiration of fluid positive, , repeat cultures sent once again and cultures from 05/05 negative Is on Rocephin IV after discussed with infectious disease, infectious disease input feels 6 week total length of IV antibiotic for septic arthritis and MSSA bacteremia, now does have negative cultures and had the picc line placed 05/08 -Plan for home IV antibiotics upon discharge tomorrow for total of 6 weeks -Follow weekly CBC, CMP, ESR, CRP while on IV antibiotics Severe hyperkalemia on admission, resolved Left upper lobe lung mass-proven to be adenocarcinoma, ruled out pneumonia. Dr Paul of thoracic surgery performed bronchoscopy 05/08 for tissue biopsy. Lymph node sampling was insufficient to see if has lymphatic spread. Unclear if has other metastases, would require PET scan as an outpatient -Hematology/oncology consultation appreciated -Patient and his daughter have decided that they will not pursue any treatment given the overall poor prognosis and he would rather have better quality of life rather than undergo chemotherapy and radiation-hospice to be initiated after completion of IV antibiotic therapy for his knee infection -He is severely hypoalbuminemic, is anemic, and has very poor functional status and multiple comorbidities-his prognosis is not good overall -Can follow-up with oncology as an outpatient after discharge if he changes his mind about pursuing treatment for his lung cancer GIANCARLO in the setting of chronic kidney disease stage III. Creatinine fairly stable but with mild increase on the day of discharge 1.55. Making urine, volume status with volume overload due to hypoalbuminemia -Avoid nephrotoxins -Renally dose medications -Following weekly CMP as an outpatient while on IV antibiotics Coumadin coagulopathy with INR is 6.9 upon admission, s/p 1 dose of vitamin K, restarted oral Coumadin, With history of pulmonary embolism/afib, iv vitamin K reduced INR for bronchoscopy and possible biopsy 05/08, restarted oral dose -Follow PT/INR-INR today still subtherapeutic at 1.8 -Continue Coumadin and will need PT/INR in 2-3 days . History of atrial fibrillation, on Coumadin. seem to be having paroxysmal runs of afib but is rate controlled and asymptomatic-in A. fib on the day of discharge by clinical exam but rate controlled. -Continue metoprolol, Coumadin Hx of Rheumatoid arthritis, is on oral steroid prior to admission, had been on hydrocortisone IV here, resumed po prednisone -Continue prednisone 10 mg in the morning and 10 mg in the afternoon as needed -He remained on his DMARD drug here called Arava during his admission-I contacted his can sealer, Dr. Neff at [phone], to see if she thinks his medication should be held while he is currently being treated for his knee infection and bacteremia. His can sealer did contact me on the day of discharge and we did agree that he should permanently discontinue his Arava given his ongoing infection and lung cancer I discussed this with the patient today. Severe constipation, suppository and enema resolved. -Continue MiraLAX twice daily Cerebral aneurysm-he had 3 cerebral aneurysms found on CT angiogram here-he saw the neurosurgeon at [facility] who did not want to pursue any intervention until his lung mass was further worked up. Now that he has known lung adenocarcinoma , there will not be any intervention of the cerebral and Prophylaxis-Coumadin Disposition-to home today with home IV antibiotics and when completed, will transition to hospice care Appreciate palliative care consultation-POLST form filled out prior to discharge Total Time Spent: Greater than 30 minutes This includes examination of the patient, discharge planning, medication reconciliation, and communication with other providers. Discharge Instructions Please refer to the electronic Patient Visit Report (Discharge Instructions) for additional information. Follow-Up With PCP and orthopedics within 1-2 weeks Additional Copies To Mehrdad Ellison D.O.; Emery Dash D.O.
[2018-05-13 12:20] VITALS: BP 110/69; PULSE 89; TEMP 37.1; O2SAT 95
[2018-05-13] MEDS: CEFTRIAXONE SOD INJ 1 GM in DEXTROSE 5% ADD-VANTAGE 50ML 50 ML IV SCH (13:39)
== END 2018-05-13 14:44 | disposition home health service (06) | DRG 854 ==
LOC: EDBD 12:22 → C.EDC 12:23 → C.2E 16:35 → ENRESERV 16:57 → C.MSW 05-03 14:09
PROVIDERS: ADMIT Hospitalist; ATTEND Family Medicine
PROC: 0Y9F3ZX Drainage of Right Knee Region, Percutaneous Approach, Diagnostic (ICD-10-PCS; 2018-05-01)
PROC: 0SBC4ZZ Excision of Right Knee Joint, Percutaneous Endoscopic Approach (ICD-10-PCS; principal; 2018-05-02 09:45)
PROC: 0MBN4ZZ Excision of Right Knee Bursa and Ligament, Percutaneous Endoscopic Approach (ICD-10-PCS; principal; 2018-05-02 09:45)
PROC: 07B74ZX Excision of Thorax Lymphatic, Percutaneous Endoscopic Approach, Diagnostic (ICD-10-PCS; 2018-05-08)
PROC: 0BBG8ZX Excision of Left Upper Lung Lobe, Via Natural or Artificial Opening Endoscopic, Diagnostic (ICD-10-PCS; 2018-05-08)
PROC: 02HV33Z Insertion of Infusion Device into Superior Vena Cava, Percutaneous Approach (ICD-10-PCS; 2018-05-08)
DX: A41.01 Sepsis due to Methicillin susceptible Staphylococcus aureus (principal); M00.861 Arthritis due to other bacteria, right knee; I69.354 Hemiplegia and hemiparesis following cerebral infarction affecting left non-dominant side; N17.9 Acute kidney failure, unspecified; C34.12 Malignant neoplasm of upper lobe, left bronchus or lung; D62 Acute posthemorrhagic anemia; M06.9 Rheumatoid arthritis, unspecified; E87.5 Hyperkalemia; I12.9 Hypertensive chronic kidney disease with stage 1 through stage 4 chronic kidney disease, or unspecified chronic kidney disease; N18.3 Chronic kidney disease, stage 3 (moderate); I48.2 Chronic atrial fibrillation; E78.5 Hyperlipidemia, unspecified; S83.241A Other tear of medial meniscus, current injury, right knee, initial encounter; S83.281A Other tear of lateral meniscus, current injury, right knee, initial encounter; M65.88 Other synovitis and tenosynovitis, other site; S83.511A Sprain of anterior cruciate ligament of right knee, initial encounter; M17.11 Unilateral primary osteoarthritis, right knee; K59.00 Constipation, unspecified; D63.8 Anemia in other chronic diseases classified elsewhere; Z53.1 Procedure and treatment not carried out because of patient's decision for reasons of belief and group pressure; Z79.01 Long term (current) use of anticoagulants; Z79.52 Long term (current) use of systemic steroids; Z79.899 Other long term (current) drug therapy; Z86.711 Personal history of pulmonary embolism; Z87.891 Personal history of nicotine dependence; X58.XXXA Exposure to other specified factors, initial encounter; Z66 Do not resuscitate; Z51.5 Encounter for palliative care

== ENCOUNTER 2018-11-10 18:22 | Inpatient (IN) ==
[2018-11-10] MEDS ORDERED: CEFEPIME 2,000 MG in SYRINGE 7.5 ML IV STA (18:36)
[2018-11-10] MEDS ORDERED: VANCOMYCIN HCL 2,250 MG in SODIUM CHLORIDE 0.9% 500 ML IV ONE (18:41)
[2018-11-10] MEDS ORDERED: VANCOMYCIN CONSULT ACTIVE PRN (18:41)
[2018-11-10] MEDS ORDERED: FUROSEMIDE 40 MG/4 ML VIAL IV STA (19:03)
--- NOTE | 2018-11-10 19:03 | XRay Report ---
XR chest 1V portable CLINICAL HISTORY: Dyspnea dyspnea COMPARISON STUDY: 10/29/2018 FINDINGS: Mild stable cardiomegaly. Central catheters. Vena cava. Slight improvement of the patient's congestive failure. Mild bibasilar atelectatic change. IMPRESSION: Pulmonary vascular congestion. The above report was generated using voice recognition software. It may contain grammatical, syntax or spelling errors. Electronically signed by: Jericho Dawn M.D. 11/10/2018 7:02 PM
[2018-11-10 19:06] LABS: HCO3 VBG 13 mmol/L; PCO2 VBG 26 mmHg (38-50); PO2 VBG 31 mmHg; pH VBG 7.33 (7.36-7.41)
[2018-11-10 19:08] LABS: Oxygen Saturation VBG < 60.0 %
[2018-11-10] MEDS ORDERED: fentaNYL citrate 100 MCG/2 ML VIAL ONE (19:09)
[2018-11-10] MEDS: fentaNYL citrate 100 MCG/2 ML VIAL IV PRN ×3 (19:14→19:50)
[2018-11-10 19:18] LABS: INR 2.4 (0.9-1.1); Partial Thromboplastin Ratio 2.2; Prothrombin Time 22.7 Seconds (9.0-12.0)
[2018-11-10 19:19] LABS: Partial Thromboplastin Time 56.9 Seconds (21.0-31.0)
[2018-11-10] MEDS ORDERED: ACETAMINOPHEN 1000 MG/100 ML IV IV STA (19:27)
[2018-11-10 19:31] LABS: Albumin Globulin Ratio 0.5 (0.9-2); Albumin Level 2.2 gm/dl (3.4-5.0); BUN Creatinine Ratio 10.9 (10-20); Bilirubin,Total 0.3 mg/dl (0.2-1); Calcium 8.3 mg/dl (8.5-10.1); Est GFR (Non-African American) 9.5; Globulin 4.5 gm/dl (2.5-4.0); Magnesium 1.3 mg/dl (1.8-2.4); Potassium 5.5 mmol/L (3.5-5.1); Total Protein 6.7 gm/dl (6.4-8.2); Troponin I 0.036 ng/ml (0-0.045)
[2018-11-10 19:56] LABS: Hematocrit (blood only) 26.7 % (42-52); Hemoglobin 8.7 g/dL (14.0-18.0); Mean Corpuscular Hgb Conc 32.6 g/dL (32-36); Mean Corpuscular Volume 88.7 fL (80-100); Platelet Count 29 K/uL (130-400); RDW Coefficient of Variation 15.9 % (11.5-14.5); RDW Standard Deviation 51.9 fL (36.4-46.3); Red Blood Count 3.01 M/uL (4.7-6.1); White Blood Count 0.97 K/uL (4.8-10.8)
[2018-11-10 19:59] LABS: Influenza A virus by PCR Neg for Influ A (Neg); Influenza B virus by PCR Neg for Influ B (Neg)
[2018-11-10] MEDS ORDERED: LORazepam 0.5 MG/1 ML VIAL IV PRN (20:04)
[2018-11-10] MEDS: MoRPHine SULFATE 2 MG/ML CARP IV PRN ×4 (20:20→21:10)
[2018-11-10] MEDS: LORazepam 0.5 MG/1 ML VIAL IV PRN ×2 (20:47→21:10)
[2018-11-10] MEDS ORDERED: MoRPHine SULFATE 2 MG/ML CARP IV STA (21:10)
[2018-11-10] MEDS ORDERED: MoRPHine SULFATE 2 MG/ML CARP IV PRN (21:10)
[2018-11-10] MEDS ORDERED: ACETAMINOPHEN 65 ML IV PRN (23:46)
[2018-11-10] MEDS ORDERED: MoRPHine SULFATE 4 MG/ML 1 ML CARP\\VIAL IV PRN (23:46)
[2018-11-10] MEDS ORDERED: LORazepam 2 MG/4 ML VIAL IV PRN (23:46)
[2018-11-10] MEDS ORDERED: ONDANSETRON INJ 2 MG/ML 2 ML VIAL IV PRN (23:46)
[2018-11-10] MEDS ORDERED: MoRPHine SULFATE 4 MG/ML 1 ML CARP\\VIAL ONE (23:51)
[2018-11-10] MEDS ORDERED: LORazepam 2 MG/4 ML VIAL ONE (23:52)
[2018-11-11] MEDS ORDERED: SCOPOLAMINE 1.5 MG TDSY TD ONE
[2018-11-11] MEDS ORDERED: HEPARIN 100 UNIT/ML 5ML FLUSH FLUSH PRN (00:18)
--- NOTE | 2018-11-11 00:46 | Emergency Department Note ---
Entered by Colby Quinonez acting as a scribe for Rupert Cameron M.D. History of Present Illness General Chief complaint: Respiratory Distress Stated complaint: RESP DISTRESS Time Seen by Provider: 11/10/18 18:40 Source: family (daughter of pt) and EMS Limitations: clinical acuity History of Present Illness Provider complaint: Respiratory distress Onset (ago): unknown Location: chest Associated symptoms: + confusion; no fever/chills Treatments prior to arrival: other (biPap) The patient is a 78 year old male who presents to the Emergency Room with complaints of shortness of breath. The patient has a DNR. The HPI is limited secondary to clinical acuity. EMS, who is bedside, reports that the patient has been declining over the past couple days, with his oxygen saturations being in the 50s when they first arrived to treat the patient. EMS adds that the patient was placed on biPap with continuous neb. The patient has a complex recent medical history: he is undergoing chemotherapy for lung cancer with his last treatment around 10 days ago. The patient's daughter, who is also in the room, adds that the patient had a stroke approximately 8 months ago and is currently on blood thinners. She adds that the patient had issues swallowing after the chemotherapy and also has mouth sores. The patient's daughter reports that the patient has atrial fibrillation, but has no history of cardiac problems. She adds that the patient has a history of recent pneumonia. She denies that the patient has a fever. Home Medications Home Medications Medication Instructions Recorded Confirmed Type albuterol sulfate [Ventolin HFA] 2 puff INHALATION Q4H PRN 07/04/18 11/10/18 History docusate sodium 100 mg PO BID PRN 07/04/18 11/10/18 History folic acid 1 mg PO QAM 07/04/18 11/10/18 History polyethylene glycol 3350 17 g PO BID PRN 07/04/18 11/10/18 History pravastatin 10 mg PO QAM 07/04/18 11/10/18 History prednisone 10 mg PO QAM 07/04/18 11/10/18 History warfarin 2.5 mg PO Q2D 07/04/18 11/10/18 History warfarin 5 mg PO Q2D 07/04/18 11/10/18 History Lactobacillus acidoph-L.bulgar 2 tab PO BID #120 tab 07/10/18 11/10/18 Rx [Lactinex] metoprolol tartrate 25 mg PO BID #60 tab 07/10/18 11/10/18 Rx cephalexin [Keflex] 500 mg PO BID 08/26/18 11/10/18 History cyanocobalamin (vitamin B-12) 1,000 mcg PO QAM 08/26/18 11/10/18 History omeprazole 20 mg PO BID 08/26/18 11/10/18 History tamsulosin 0.4 mg PO QAM #30 cap 09/15/18 11/10/18 Rx tramadol [Ultram] 50 mg PO QID PRN #18 tab 09/15/18 11/10/18 Rx acetaminophen 500 mg PO Q6H PRN 10/16/18 11/10/18 History cholecalciferol (vitamin D3) 2,000 unit PO QAM 10/16/18 11/10/18 History [Vitamin D3] Allergies Allergy/AdvReac Type Severity Reaction Status Date / Time No Known Allergies Allergy Verified 11/10/18 20:26 Past Med/Surg History Medical History Rheumatoid arthritis ON PREDNISONE 10MG DAILY Atrial fibrillation ON COUMADIN Hyperlipidemia Septic arthritis RIGHT KNEE= S/P I&D 07/06/2018= S/P 6 WEEKS ABX Chronic combined systolic (congestive) and diastolic (congestive) heart failure "NO EVIDENCE OF ACUTE EXACERBATION" PER RECENT [facility] ADMISSION Gout Cerebral aneurysm X3 (UNDER SURVEILLANCE) Obesity Stroke left arm -weaker - Otherwise all functions returned to normal. Some short term memory loss COPD (chronic obstructive pulmonary disease) Anemia CHRONIC- BASELINE HGB 8 RANGE PER CHART REVIEW Hypertension Chronic kidney disease, stage III (moderate) Hx of cancer of lung Had left upper lobectomy 09/09/2018 [facility] - will be starting chemo 10/22/2017 Hx pulmonary embolism Surgical History S/P arthroscopy RIGHT KNEE ARTHROSCOPY/I&D= 07/06/18= LMA#5 AT [facility] (2/2 SEPTIC ARTHRITIS) History of colonoscopy History of lung surgery EBUS= 05/08/18= GRADE 1 VIEW, MAC 3, ETT 8.5 AT [facility] 09/09/18 = robot assisted left wedge resection and left upper lobectomy H/O elbow surgery LEFT H/O total hip arthroplasty RIGHT HIP History of lung surgery EBUS 04/2018. 8.5 ETT. Mac 3. Grade 1 view. History of surgery Venous sccess insertion Family History Sister Family hx of colon cancer Father Family history of esophageal cancer Father Diabetes Mother Diabetes Other Gout Social History marital status: / Current Living Situation: Alone Feels Safe at Home: Yes Smoking Status: Former smoker Tobacco Type: cigarettes Cigarettes per Day: 30 CIGS DAILY X 35 YEARS Second Hand Exposure: No Hx Alcohol Use: Yes Alcohol type: beer Alcohol Intake Frequency: holidays/ special occasions only Hx Substance Use: No Beliefs That Will Affect Care: None Preferred Language: Yoruba Communication Ability: Effective Review of Systems See HPI for pertinent positives & negatives. Limited secondary to acuity and respiratory status. Physical Exam Vital Signs Vital Signs - 24 hr 11/10/18 17:48 11/10/18 18:28 11/10/18 18:29 Temperature Temperature Source Sepsis Recent Fever Within 48 Hours Sepsis New/Unexplained Change in Mental Status Sepsis Action Taken by Nursing Pulse Rate 144 H 134 H Pulse Rate [Apical] Pulse Rhythm Regular Pulse Strength Respiratory Rate Respiratory Effort / Characteristics Spontaneous Accessory Muscle Use Labored Respiratory Depth Deep Respiratory Pattern Rapid/Deep Tachypnea Blood Pressure Blood Pressure [Right Arm] Blood Pressure Mean Blood Pressure Mean [Right Arm] Blood Pressure Position Pulse Oximetry 100 96 Oxygen Delivery Method BiPAP BiPAP Oxygen Flow Rate 100 100 Fraction of Inspired Oxygen 100 SaO2/FiO2 Ratio 11/10/18 18:30 11/10/18 18:35 11/10/18 18:42 Temperature Temperature Source Sepsis Recent Fever Within 48 Hours Sepsis New/Unexplained Change in Mental Status Sepsis Action Taken by Nursing Pulse Rate 142 H 136 H 144 H Pulse Rate [Apical] Pulse Rhythm Pulse Strength Respiratory Rate 32 H Respiratory Effort / Characteristics Spontaneous Short of Breath Respiratory Depth Respiratory Pattern Tachypnea Blood Pressure 170/146 H Blood Pressure [Right Arm] Blood Pressure Mean 154 Blood Pressure Mean [Right Arm] Blood Pressure Position Pulse Oximetry 96 Oxygen Delivery Method Oxygen Flow Rate Fraction of Inspired Oxygen 100 SaO2/FiO2 Ratio 11/10/18 18:45 11/10/18 18:50 11/10/18 18:52 Temperature 39.1 C H Temperature Source Axillary Sepsis Recent Fever Within 48 Hours Yes Sepsis New/Unexplained Change in Mental Status Yes Sepsis Action Taken by Nursing Physician Notified Pulse Rate 131 H 134 H 146 H Pulse Rate [Apical] Pulse Rhythm Regular Pulse Strength Normal Respiratory Rate 32 H Respiratory Effort / Characteristics Spontaneous Accessory Muscle Use Labored Short of Breath SOB on Exertion Respiratory Depth Respiratory Pattern Blood Pressure 174/124 H 162/125 H Blood Pressure [Right Arm] Blood Pressure Mean 140 137 Blood Pressure Mean [Right Arm] Blood Pressure Position Sitting Pulse Oximetry 100 88 L Oxygen Delivery Method BiPAP Oxygen Flow Rate Fraction of Inspired Oxygen 100 SaO2/FiO2 Ratio 100 11/10/18 19:00 11/10/18 19:02 11/10/18 19:15 Temperature Temperature Source Sepsis Recent Fever Within 48 Hours Sepsis New/Unexplained Change in Mental Status Sepsis Action Taken by Nursing Pulse Rate 133 H 142 H 141 H Pulse Rate [Apical] Pulse Rhythm Pulse Strength Respiratory Rate Respiratory Effort / Characteristics Respiratory Depth Respiratory Pattern Blood Pressure 80/56 L Blood Pressure [Right Arm] Blood Pressure Mean 64 Blood Pressure Mean [Right Arm] Blood Pressure Position Pulse Oximetry 80 L 78 L Oxygen Delivery Method Oxygen Flow Rate Fraction of Inspired Oxygen SaO2/FiO2 Ratio 11/10/18 19:18 11/10/18 19:30 11/10/18 19:31 Temperature Temperature Source Sepsis Recent Fever Within 48 Hours Sepsis New/Unexplained Change in Mental Status Sepsis Action Taken by Nursing Pulse Rate 143 H 141 H 144 H Pulse Rate [Apical] Pulse Rhythm Pulse Strength Respiratory Rate 31 H Respiratory Effort / Characteristics Respiratory Depth Respiratory Pattern Blood Pressure 94/37 L 68/61 L Blood Pressure [Right Arm] Blood Pressure Mean 56 63 Blood Pressure Mean [Right Arm] Blood Pressure Position Pulse Oximetry 77 L 80 L 85 L Oxygen Delivery Method BiPAP BiPAP Oxygen Flow Rate 100 Fraction of Inspired Oxygen 100 SaO2/FiO2 Ratio 11/10/18 19:45 11/10/18 19:46 11/10/18 19:51 Temperature Temperature Source Sepsis Recent Fever Within 48 Hours Sepsis New/Unexplained Change in Mental Status Sepsis Action Taken by Nursing Pulse Rate 132 H 134 H 136 H Pulse Rate [Apical] Pulse Rhythm Pulse Strength Respiratory Rate 42 H 49 H Respiratory Effort / Characteristics Respiratory Depth Respiratory Pattern Blood Pressure 93/51 L 53/31 L Blood Pressure [Right Arm] Blood Pressure Mean 65 38 Blood Pressure Mean [Right Arm] Blood Pressure Position Pulse Oximetry 82 L 83 L 81 L Oxygen Delivery Method BiPAP BiPAP Oxygen Flow Rate Fraction of Inspired Oxygen 100 100 SaO2/FiO2 Ratio 11/10/18 20:00 11/10/18 20:12 11/10/18 20:15 Temperature Temperature Source Sepsis Recent Fever Within 48 Hours Sepsis New/Unexplained Change in Mental Status Sepsis Action Taken by Nursing Pulse Rate 129 H 134 H 130 H Pulse Rate [Apical] Pulse Rhythm Pulse Strength Respiratory Rate 47 H 52 H 50 H Respiratory Effort / Characteristics Respiratory Depth Respiratory Pattern Blood Pressure 96/70 L Blood Pressure [Right Arm] Blood Pressure Mean 78 Blood Pressure Mean [Right Arm] Blood Pressure Position Pulse Oximetry 81 L 81 L 84 L Oxygen Delivery Method BiPAP BiPAP BiPAP Oxygen Flow Rate Fraction of Inspired Oxygen 100 100 100 SaO2/FiO2 Ratio 11/10/18 20:30 11/10/18 20:32 11/10/18 20:42 Temperature Temperature Source Sepsis Recent Fever Within 48 Hours Sepsis New/Unexplained Change in Mental Status Sepsis Action Taken by Nursing Pulse Rate 135 H 136 H 132 H Pulse Rate [Apical] Pulse Rhythm Pulse Strength Respiratory Rate 50 H 48 H 50 H Respiratory Effort / Characteristics Respiratory Depth Respiratory Pattern Blood Pressure 119/94 80/45 L Blood Pressure [Right Arm] Blood Pressure Mean 102 56 Blood Pressure Mean [Right Arm] Blood Pressure Position Pulse Oximetry 82 L 84 L 88 L Oxygen Delivery Method BiPAP BiPAP BiPAP Oxygen Flow Rate Fraction of Inspired Oxygen 100 100 100 SaO2/FiO2 Ratio 11/10/18 20:45 11/10/18 21:00 11/10/18 21:15 Temperature Temperature Source Sepsis Recent Fever Within 48 Hours Sepsis New/Unexplained Change in Mental Status Sepsis Action Taken by Nursing Pulse Rate 134 H 134 H 137 H Pulse Rate [Apical] Pulse Rhythm Pulse Strength Respiratory Rate 40 H 45 H 43 H Respiratory Effort / Characteristics Respiratory Depth Respiratory Pattern Blood Pressure Blood Pressure [Right Arm] Blood Pressure Mean Blood Pressure Mean [Right Arm] Blood Pressure Position Pulse Oximetry 91 92 99 Oxygen Delivery Method BiPAP BiPAP Nasal Cannula Oxygen Flow Rate 7 Fraction of Inspired Oxygen 100 100 SaO2/FiO2 Ratio 11/10/18 21:20 11/10/18 21:30 11/10/18 21:45 Temperature Temperature Source Sepsis Recent Fever Within 48 Hours Sepsis New/Unexplained Change in Mental Status Sepsis Action Taken by Nursing Pulse Rate 141 H 140 H 134 H Pulse Rate [Apical] Pulse Rhythm Pulse Strength Respiratory Rate 44 H 36 H 39 H Respiratory Effort / Characteristics Respiratory Depth Respiratory Pattern Blood Pressure Blood Pressure [Right Arm] Blood Pressure Mean Blood Pressure Mean [Right Arm] Blood Pressure Position Pulse Oximetry 95 93 99 Oxygen Delivery Method Nasal Cannula Nasal Cannula Nasal Cannula Oxygen Flow Rate 4 4 4 Fraction of Inspired Oxygen SaO2/FiO2 Ratio 11/10/18 22:00 11/10/18 22:15 11/10/18 22:30 Temperature Temperature Source Sepsis Recent Fever Within 48 Hours Sepsis New/Unexplained Change in Mental Status Sepsis Action Taken by Nursing Pulse Rate 132 H 133 H 135 H Pulse Rate [Apical] Pulse Rhythm Pulse Strength Respiratory Rate 34 H 33 H 36 H Respiratory Effort / Characteristics Respiratory Depth Respiratory Pattern Blood Pressure Blood Pressure [Right Arm] Blood Pressure Mean Blood Pressure Mean [Right Arm] Blood Pressure Position Pulse Oximetry 100 100 100 Oxygen Delivery Method Nasal Cannula Nasal Cannula Nasal Cannula Oxygen Flow Rate 4 4 4 Fraction of Inspired Oxygen SaO2/FiO2 Ratio 11/10/18 22:45 11/10/18 23:00 11/10/18 23:15 Temperature 36.5 C Temperature Source Oral Sepsis Recent Fever Within 48 Hours Sepsis New/Unexplained Change in Mental Status Sepsis Action Taken by Nursing Pulse Rate 135 H 132 H Pulse Rate [Apical] 130 H Pulse Rhythm Pulse Strength Respiratory Rate 33 H 28 H 31 H Respiratory Effort / Characteristics Respiratory Depth Respiratory Pattern Blood Pressure Blood Pressure [Right Arm] 72/37 L Blood Pressure Mean Blood Pressure Mean [Right Arm] 48 Blood Pressure Position Pulse Oximetry 100 100 97 Oxygen Delivery Method Nasal Cannula Nasal Cannula Nasal Cannula Oxygen Flow Rate 4 4 4 Fraction of Inspired Oxygen SaO2/FiO2 Ratio 11/10/18 23:25 Temperature Temperature Source Sepsis Recent Fever Within 48 Hours Sepsis New/Unexplained Change in Mental Status Sepsis Action Taken by Nursing Pulse Rate Pulse Rate [Apical] Pulse Rhythm Pulse Strength Respiratory Rate Respiratory Effort / Characteristics Respiratory Depth Respiratory Pattern Blood Pressure Blood Pressure [Right Arm] Blood Pressure Mean Blood Pressure Mean [Right Arm] Blood Pressure Position Pulse Oximetry Oxygen Delivery Method Nasal Cannula Oxygen Flow Rate 4 Fraction of Inspired Oxygen SaO2/FiO2 Ratio GENERAL: Awake, minimally alert, respiratory distress, on biPap. HENT: Normocephalic, atraumatic. EYES: Normal conjunctiva. Sclera non-icteric. NECK: Supple. No nuchal rigidity. RESPIRATORY: Diminished bases, increased work of breathing. CARDIAC: Tachycardic. Irregular rhythm. Extremities warm and poorly perfused GI: Soft, mild distension. Non tender RECTAL: Deferred. MUSCULOSKELETAL: Atraumatic. Chest examination reveals no tenderness. LOWER EXTREMITIES: Calves are equal size bilaterally and non-tender. 2-3+ pitting edema NEURO: Normal sensorium. No sensory or motor deficits noted. No facial droop. SKIN: Warm and dry. No jaundice noted. Course 1818: Past medical records reviewed. The patient was evaluated in room B01, and a complete history and physical examination were performed. 1902: I reevaluated the patient. He is not doing well. 2143: Discussed with Dr. Rashid for admission. Family aware and multiple reassessments and communications with them over the last several hours. Administered Medications Discontinued Medications Acetaminophen (Ofirmev) 1,000 mg IV ONE STA Stop: 11/10/18 19:28 Last Admin: 11/10/18 19:36 Dose: 1,000 mg Fentanyl Citrate (Fentanyl Citrate) Confirm Administered Dose 100 mcg .ROUTE .K-MED ONE Stop: 11/10/18 19:10 Last Admin: 11/10/18 19:15 Dose: Not Given Fentanyl Citrate (Fentanyl Citrate) 25 mcg IV Q15M PRN PRN Reason: Pain Stop: 11/24/18 19:07 Last Admin: 11/10/18 19:50 Dose: 25 mcg Admin: 11/10/18 19:28 Dose: 25 mcg Admin: 11/10/18 19:14 Dose: 25 mcg Furosemide (Lasix) 40 mg IV NOW STA Stop: 11/10/18 19:04 Last Admin: 11/10/18 19:14 Dose: 40 mg Cefepime HCl 2,000 mg/ Syringe 20 mls @ 5.5 mls/min IV NOW STA Stop: 11/10/18 18:39 Last Admin: 11/10/18 19:15 Dose: 5.5 mls/min Vancomycin HCl 2,250 mg/ (Sodium Chloride) 545 mls @ 200 mls/hr IV NOW ONE Stop: 11/10/18 21:10 Last Infusion: 11/10/18 21:47 Dose: 0 mls/hr Admin: 11/10/18 19:14 Dose: 200 mls/hr Lorazepam (Ativan) 0.5 mg in 1 mls @ 1 mls/min IV NOW PRN PRN Reason: Agitation Stop: 12/10/18 20:03 Last Admin: 11/10/18 20:14 Dose: 1 mls/min Lorazepam (Ativan) 0.5 mg in 1 mls @ 1 mls/min IV Q30M PRN PRN Reason: Agitation Stop: 12/10/18 20:03 Last Admin: 11/10/18 21:10 Dose: 1 mls/min Admin: 11/10/18 20:47 Dose: 1 mls/min Lorazepam (Ativan) Confirm Administered Dose 2 mg .ROUTE .STK-MED ONE Stop: 11/10/18 23:53 Last Admin: 11/10/18 23:57 Dose: 2 mg Morphine Sulfate (Morphine Sulfate) 2 mg IV Q20M PRN PRN Reason: Pain Stop: 11/24/18 20:04 Last Admin: 11/10/18 21:10 Dose: 2 mg Admin: 11/10/18 20:58 Dose: 2 mg Admin: 11/10/18 20:41 Dose: 2 mg Admin: 11/10/18 20:20 Dose: 2 mg Morphine Sulfate (Morphine Sulfate) 4 mg IV Q20M PRN PRN Reason: Pain Stop: 11/24/18 20:04 Last Admin: 11/10/18 21:28 Dose: 4 mg Morphine Sulfate (Morphine Sulfate) 2 mg IV NOW STA Stop: 11/10/18 21:11 Last Admin: 11/10/18 21:13 Dose: Not Given Morphine Sulfate (Morphine Sulfate) Confirm Administered Dose 4 mg .ROUTE .STK- MED ONE Stop: 11/10/18 23:52 Last Admin: 11/10/18 23:57 Dose: 4 mg Medical Decision Making Differential Diagnosis Included PE, ACS, aortic dissection, sepsis/infection, hypercapnia, pneumonia, pneumothorax, electrolyte abnormality, fluid overload/pulmonary edema/CHF among other processes were considered. Medical Records Attestation: I reviewed the patient's medical records. Home Medications Current Medication List: was personally reviewed by me Laboratory Data Attestation: I reviewed the patient's lab results. Result diagrams: 11/10/18 18:26 11/10/18 18:26 Lab Results 11/10/18 11/10/18 11/10/18 Range/Units 18:26 18:26 18: WBC 0.97 L* (4.8-10.8) K/uL RBC 3.01 L (4.7-6.1) M/uL Hgb 8.7 L (14.0-18.0) g/dL Hct 26.7 L (42-52) % MCV 88.7 (80-100) fL MCH 28.9 (25-34) pg MCHC 32.6 (32-36) g/dL RDW Std Deviation 51.9 H (36.4-46.3) fL RDW Coeff of Lyle 15.9 H (11.5-14.5) % Plt Count 29 L* (130-400) K/uL PT 22.7 H (9.0-12.0) Seconds INR 2.4 H (0.9-1.1) APTT 56.9 H* (21.0-31.0) Seconds PTT Ratio 2.2 VBG pH (7.36-7.41) VBG pCO2 (38-50) mmHg VBG pO2 mmHg VBG HCO3 mmol/L VBG O2 Saturation % VBG Base Excess mEq/L Barometric Pressure mm/Hg Sodium 133 L (136-145) mmol/L Potassium 5.5 H (3.5-5.1) mmol/L Chloride 101 (98-107) mmol/L Carbon Dioxide 12 L (21-32) mmol/L Anion Gap 20.0 H (3-11) BUN 58 H (7-18) mg/dl Creatinine 5.33 H* (0.6-1.4) mg/dl Est Cr Clr Drug Dosing 14.0 ml/min Est GFR ( Amer) 11.0 Est GFR (Non-Af Amer) 9.5 BUN/Creatinine Ratio 10.9 (10-20) Glucose 138 H (70-99) mg/dl POC Lactic Acid Zoran (0.90-1.70) mmol/L Calcium 8.3 L (8.5-10.1) mg/dl Magnesium 1.3 L (1.8-2.4) mg/dl Total Bilirubin 0.3 (0.2-1) mg/dl AST 106 H (15-37) U/L ALT 40 (12-78) U/L Alkaline Phosphatase 61 (45-117) U/L Troponin I 0.036 (0-0.045) ng/ml NT-Pro-B Natriuret Pep 99844 H (0-1800) pg/ml Total Protein 6.7 (6.4-8.2) gm/dl Albumin 2.2 L (3.4-5.0) gm/dl Globulin 4.5 H (2.5-4.0) gm/dl Albumin/Globulin Ratio 0.5 L (0.9-2) Influenza Type A (PCR) (Neg) Influenza Type B (PCR) (Neg) 11/10/18 11/10/18 11/10/18 Range/Units 18:41 18:48 19:15 WBC (4.8-10.8) K/uL RBC (4.7-6.1) M/uL Hgb (14.0-18.0) g/dL Hct (42-52) % MCV (80-100) fL MCH (25-34) pg MCHC (32-36) g/dL RDW Std Deviation (36.4-46.3) fL RDW Coeff of Lyle (11.5-14.5) % Plt Count (130-400) K/uL PT (9.0-12.0) Seconds INR (0.9-1.1) APTT (21.0-31.0) Seconds PTT Ratio VBG pH 7.33 L (7.36-7.41) VBG pCO2 26 L (38-50) mmHg VBG pO2 31 mmHg VBG HCO3 13 mmol/L VBG O2 Saturation < 60.0 % VBG Base Excess -11.0 mEq/L Barometric Pressure 725.0 mm/Hg Sodium (136-145) mmol/L Potassium (3.5-5.1) mmol/L Chloride (98-107) mmol/L Carbon Dioxide (21-32) mmol/L Anion Gap (3-11) BUN (7-18) mg/dl Creatinine (0.6-1.4) mg/dl Est Cr Clr Drug Dosing ml/min Est GFR ( Amer) Est GFR (Non-Af Amer) BUN/Creatinine Ratio (10-20) Glucose (70-99) mg/dl POC Lactic Acid Zoran 8.21 H (0.90-1.70) mmol/L Calcium (8.5-10.1) mg/dl Magnesium (1.8-2.4) mg/dl Total Bilirubin (0.2-1) mg/dl AST (15-37) U/L ALT (12-78) U/L Alkaline Phosphatase (45-117) U/L Troponin I (0-0.045) ng/ml NT-Pro-B Natriuret Pep (0-1800) pg/ml Total Protein (6.4-8.2) gm/dl Albumin (3.4-5.0) gm/dl Globulin (2.5-4.0) gm/dl Albumin/Globulin Ratio (0.9-2) Influenza Type A (PCR) Neg for Influ A (Neg) Influenza Type B (PCR) Neg for Influ B (Neg) Imaging Data Radiologist's Impression: Radiology results as stated below per my review and the radiologist's interpretation: XR chest 1V portable CLINICAL HISTORY: Dyspnea dyspnea COMPARISON STUDY: 10/29/2018 FINDINGS: Mild stable cardiomegaly. Central catheters. Vena cava. Slight improvement of the patient's congestive failure. Mild bibasilar atelectatic change. IMPRESSION: Pulmonary vascular congestion. The above report was generated using voice recognition software. It may contain grammatical, syntax or spelling errors. Electronically signed by: Jericho Dawn M.D. 11/10/2018 7:02 PM ECG Data Attestation: I personally reviewed and interpreted this ECG as follows: Indication: SOB/dyspnea Rate (beats per minute): 140 Rhythm: atrial fibrillation Findings: + other (Non specific T waves change); no ST elevation Blood Pressure Blood Pressure Findings: Low blood pressure Blood Pressure Disposition: further management by hospitalist MINNA Narrative 78-year-old gentleman with a history of lung cancer currently on chemotherapy along with additional history of atrial fibrillation on Coumadin, CHF, COPD, CKD , right septic knee on Keflex presenting with increased edema and worsening shortness of breath over the last several days. Significant worsened today and hypoxic per EMS. Patient placed on BiPAP prior to arrival. Was somewhat cyanotic and mottled per EMS report prior to arrival and received breathing treatments. Upon arrival here the patient declines intubation or CPR. BiPAP was maintained. Patient was noted to be febrile upon arrival and is on chemotherapy. Given this and his respiratory distress was given cefepime and vancomycin. Blood cultures and lactate was ordered. Lactate at 8.2. Lab called regarding significant neutropenia with thrombocytopenia and blasts concerning for sepsis based on differential. EKG completed showing tachycardia probably somewhat provoked due to illness, respiratory status, and breathing treatments. Did not pursue aggressive rate control the patient is already anticoagulated. X-ray of pulmonary vascular congestion and given Lasix. Patient has evidence of acute renal failure with a creatinine greater than 5. Patient continues to clinically declined and marito discussion with family member given his decreased mental status they do not wish to pursue aggressive treatments. Patient was given some fentanyl for diffuse pain and air hunger. We will honor her wishes to decline advanced airway or CPR. All proceeding with antibiotics and diuretics they wish to transition the patient to comfort care and measures will continue on diuretics and antibiotics. They did not seem impressed to start vasopressors at this time. Discussion with family members patient was transitioned from BiPAP to nasal cannula. Medicated for comfort. They declined additional blood pressure monitoring. Patient stabilized and was maintained comfortable on nasal cannula with pulse ox in the 80s. Discussed with the hospitalist for admission for continued comfort care given goals of care. Impression & Plan Acute respiratory failure with hypoxia, Sepsis, Pulmonary edema, Acute renal failure, Atrial fibrillation with RVR Critical Care Time I have personally spent greater than 100 minutes of critical care time in the direct management of this patient. This includes bedside care, interpretation of diagnostic studies, and testing, discussion with consultants, patient, and family members, and other required patient management activities. This 100 minutes is in excess of all separately billable procedures. Critical Care Time: Yes Total Critical Care Time: 100 Discharge Plan Visit Data Chief Complaint: Respiratory Distress Stated Complaint: RESP DISTRESS ED Provider: Rupert Cameron Discharge Problem: Acute respiratory failure with hypoxia, Sepsis, Pulmonary edema, Acute renal failure, Atrial fibrillation with RVR Patient Disposition: Admitted As Inpatient Condition: Critical Discharge Instructions Interventions: ED Discharge Assessment Last Done: 11/10/18 23:25 The derrickibe's documentation has been prepared under my direction and personally reviewed by me in its entirety. I confirm that the note above accurately reflects all work, treatment, procedures, and medical decision making performed by me.
--- NOTE | 2018-11-11 00:56 | History & Physical Report ---
Date of Service November 10, 2018 Assessment & Plan (1) Acute respiratory failure with hypoxia: Patient presenting with acute hypoxic respiratory failure in setting of presumed sepsis with multiple medical comorbidities. Patient unresponsive to verbal or painful stimuli at present. Large amount of family at the bedside. In accordance with the patient's wishes the patient will be made comfort care. -Admission to 4th floor -Comfort measures to include Morphine, Ativan, Scopolamine, Zofran and Tylenol as needed -Supplemental O2 as needed for comfort -No blood draws or VS to be obtained History of Present Illness Chief Complaint: respiratory distress Primary Care Provider: Emery Dash Mr. Davis is a 78yo male with multiple medical problems to include lung CA on chemotherapy, last treatment received 10/30/18, AF, COPD, CHF, CVA 8 months ago on anticoagulation, right septic knee on Keflex, presenting with respiratory failure. Family at bedside during encounter, provided history as patient is unresponsive. This evening the patient was found to be somnolent and minimally responsive, unable to get up from chair. Also in respiratory distress with RR in the 40's. Home O2 monitoring with undetectable oxygen saturation. Family noted crackles in bilateral lungs. Per family the patient has been declining over the past few days. EMS was called and the patient was placed on BiPAP with continuous neb treatment. Family at bedside. Patient is DNR/DNI, he expressed wishes to have very minimal life-sustaining measures taken Allergies Allergy/AdvReac Type Severity Reaction Status Date / Time No Known Allergies Allergy Verified 11/10/18 20:26 Home Medications Home Medications Medication Instructions Recorded Confirmed Type albuterol sulfate [Ventolin HFA] 2 puff INHALATION Q4H PRN 07/04/18 11/10/18 History docusate sodium 100 mg PO BID PRN 07/04/18 11/10/18 History folic acid 1 mg PO QAM 07/04/18 11/10/18 History polyethylene glycol 3350 17 g PO BID PRN 07/04/18 11/10/18 History pravastatin 10 mg PO QAM 07/04/18 11/10/18 History prednisone 10 mg PO QAM 07/04/18 11/10/18 History warfarin 2.5 mg PO Q2D 07/04/18 11/10/18 History warfarin 5 mg PO Q2D 07/04/18 11/10/18 History Lactobacillus acidoph-L.bulgar 2 tab PO BID #120 tab 07/10/18 11/10/18 Rx [Lactinex] metoprolol tartrate 25 mg PO BID #60 tab 07/10/18 11/10/18 Rx cephalexin [Keflex] 500 mg PO BID 08/26/18 11/10/18 History cyanocobalamin (vitamin B-12) 1,000 mcg PO QAM 08/26/18 11/10/18 History omeprazole 20 mg PO BID 08/26/18 11/10/18 History tamsulosin 0.4 mg PO QAM #30 cap 09/15/18 11/10/18 Rx tramadol [Ultram] 50 mg PO QID PRN #18 tab 09/15/18 11/10/18 Rx acetaminophen 500 mg PO Q6H PRN 10/16/18 11/10/18 History cholecalciferol (vitamin D3) 2,000 unit PO QAM 10/16/18 11/10/18 History [Vitamin D3] Past Med/Surg History Medical History Rheumatoid arthritis ON PREDNISONE 10MG DAILY Atrial fibrillation ON COUMADIN Hyperlipidemia Septic arthritis RIGHT KNEE= S/P I&D 07/06/2018= S/P 6 WEEKS ABX Chronic combined systolic (congestive) and diastolic (congestive) heart failure "NO EVIDENCE OF ACUTE EXACERBATION" PER RECENT [facility] ADMISSION Gout Cerebral aneurysm X3 (UNDER SURVEILLANCE) Obesity Stroke left arm -weaker - Otherwise all functions returned to normal. Some short term memory loss COPD (chronic obstructive pulmonary disease) Anemia CHRONIC- BASELINE HGB 8 RANGE PER CHART REVIEW Hypertension Chronic kidney disease, stage III (moderate) Hx of cancer of lung Had left upper lobectomy 09/09/2018 [facility] - will be starting chemo 10/22/2017 Hx pulmonary embolism Surgical History S/P arthroscopy RIGHT KNEE ARTHROSCOPY/I&D= 07/06/18= LMA#5 AT [facility] (2/2 SEPTIC ARTHRITIS) History of colonoscopy History of lung surgery EBUS= 05/08/18= GRADE 1 VIEW, MAC 3, ETT 8.5 AT [facility] 09/09/18 = robot assisted left wedge resection and left upper lobectomy H/O elbow surgery LEFT H/O total hip arthroplasty RIGHT HIP History of lung surgery EBUS 04/2018. 8.5 ETT. Mac 3. Grade 1 view. History of surgery Venous sccess insertion Family History Sister Family hx of colon cancer Father Family history of esophageal cancer Father Diabetes Mother Diabetes Other Gout Social History marital status: / Current Living Situation: Alone Feels Safe at Home: Yes Smoking Status: Former smoker Tobacco Type: cigarettes Cigarettes per Day: 30 CIGS DAILY X 35 YEARS Second Hand Exposure: No Hx Alcohol Use: Yes Alcohol type: beer Alcohol Intake Frequency: holidays/ special occasions only Hx Substance Use: No Beliefs That Will Affect Care: None Preferred Language: Kinyarwanda Communication Ability: Effective Review of Systems All systems reviewed & are unremarkable except as noted in HPI & below Physical Exam 2 Vital Signs (Past 24 Hours): Last Vital Signs Temp 36.5 C 11/10/18 23:15 Pulse 130 H 11/10/18 23:15 Resp 31 H 11/10/18 23:15 BP 72/37 L 11/10/18 23:15 Pulse Ox 97 11/10/18 23:15 Physical Exam: General: patient unarousable, nonverbal, does not follow commands Skin: warm, dry, intact, no rashes or lesions HEENT: NC/AT, left pupil large and unreactive, right pupil pinpoint, anicteric sclera, conjunctiva without injection, nares patent, dry mucus membranes, no oropharyngeal lesions, neck supple, trachea midline, no LAD, no thyromegaly, no JVD Heart: +S1/S2, regular, tachycardic, no m/r/g Lungs: patient tachypneic, shallow breaths, equal air entry bilaterally, no rales/rhonchi/wheezes Abd: +BS, soft, NT/ND, no masses/organomegaly/ascites Ext: warm, 2+ pulses in UE/LE bilaterally, no clubbing/cyanosis or edema Neuro: unarousable, does not follow commands, does not withdraw from painful stimuli Results & Data Laboratory Results Lab Results 11/10/18 11/10/18 11/10/18 Range/Units 18:26 18:26 18:26 WBC 0.97 L* (4.8-10.8) K/uL RBC 3.01 L (4.7-6.1) M/uL Hgb 8.7 L (14.0-18.0) g/dL Hct 26.7 L (42-52) % MCV 88.7 (80-100) fL MCH 28.9 (25-34) pg MCHC 32.6 (32-36) g/dL RDW Std Deviation 51.9 H (36.4-46.3) fL RDW Coeff of Lyle 15.9 H (11.5-14.5) % Plt Count 29 L* (130-400) K/uL PT 22.7 H (9.0-12.0) Seconds INR 2.4 H (0.9-1.1) APTT 56.9 H* (21.0-31.0) Seconds PTT Ratio 2.2 VBG pH (7.36-7.41) VBG pCO2 (38-50) mmHg VBG pO2 mmHg VBG HCO3 mmol/L VBG O2 Saturation % VBG Base Excess mEq/L Barometric Pressure mm/Hg Sodium 133 L (136-145) mmol/L Potassium 5.5 H (3.5-5.1) mmol/L Chloride 101 (98-107) mmol/L Carbon Dioxide 12 L (21-32) mmol/L Anion Gap 20.0 H (3-11) BUN 58 H (7-18) mg/dl Creatinine 5.33 H* (0.6-1.4) mg/dl Est Cr Clr Drug Dosing 14.0 ml/min Est GFR ( Amer) 11.0 Est GFR (Non-Af Amer) 9.5 BUN/Creatinine Ratio 10.9 (10-20) Glucose 138 H (70-99) mg/dl POC Lactic Acid Zoran (0.90-1.70) mmol/L Calcium 8.3 L (8.5-10.1) mg/dl Magnesium 1.3 L (1.8-2.4) mg/dl Total Bilirubin 0.3 (0.2-1) mg/dl AST 106 H (15-37) U/L ALT 40 (12-78) U/L Alkaline Phosphatase 61 (45-117) U/L Troponin I 0.036 (0-0.045) ng/ml NT-Pro-B Natriuret Pep 39668 H (0-1800) pg/ml Total Protein 6.7 (6.4-8.2) gm/dl Albumin 2.2 L (3.4-5.0) gm/dl Globulin 4.5 H (2.5-4.0) gm/dl Albumin/Globulin Ratio 0.5 L (0.9-2) Influenza Type A (PCR) (Neg) Influenza Type B (PCR) (Neg) 11/10/18 11/10/18 11/10/18 Range/Units 18:41 18:48 19:15 WBC (4.8-10.8) K/uL RBC (4.7-6.1) M/uL Hgb (14.0-18.0) g/dL Hct (42-52) % MCV (80-100) fL MCH (25-34) pg MCHC (32-36) g/dL RDW Std Deviation (36.4-46.3) fL RDW Coeff of Lyle (11.5-14.5) % Plt Count (130-400) K/uL PT (9.0-12.0) Seconds INR (0.9-1.1) APTT (21.0-31.0) Seconds PTT Ratio VBG pH 7.33 L (7.36-7.41) VBG pCO2 26 L (38-50) mmHg VBG pO2 31 mmHg VBG HCO3 13 mmol/L VBG O2 Saturation < 60.0 % VBG Base Excess -11.0 mEq/L Barometric Pressure 725.0 mm/Hg Sodium (136-145) mmol/L Potassium (3.5-5.1) mmol/L Chloride (98-107) mmol/L Carbon Dioxide (21-32) mmol/L Anion Gap (3-11) BUN (7-18) mg/dl Creatinine (0.6-1.4) mg/dl Est Cr Clr Drug Dosing ml/min Est GFR ( Amer) Est GFR (Non-Af Amer) BUN/Creatinine Ratio (10-20) Glucose (70-99) mg/dl POC Lactic Acid Zoran 8.21 H (0.90-1.70) mmol/L Calcium (8.5-10.1) mg/dl Magnesium (1.8-2.4) mg/dl Total Bilirubin (0.2-1) mg/dl AST (15-37) U/L ALT (12-78) U/L Alkaline Phosphatase (45-117) U/L Troponin I (0-0.045) ng/ml NT-Pro-B Natriuret Pep (0-1800) pg/ml Total Protein (6.4-8.2) gm/dl Albumin (3.4-5.0) gm/dl Globulin (2.5-4.0) gm/dl Albumin/Globulin Ratio (0.9-2) Influenza Type A (PCR) Neg for Influ A (Neg) Influenza Type B (PCR) Neg for Influ B (Neg) Diagnostic Findings XR chest 1V portable CLINICAL HISTORY: Dyspnea dyspnea COMPARISON STUDY: 10/29/2018 FINDINGS: Mild stable cardiomegaly. Central catheters. Vena cava. Slight improvement of the patient's congestive failure. Mild bibasilar atelectatic change. IMPRESSION: Pulmonary vascular congestion. The above report was generated using voice recognition software. It may contain grammatical, syntax or spelling errors. Electronically signed by: Jericho Dawn M.D. 11/10/2018 7:02 PM Dictated: 11/10/181899 Transcribed: 11/10/181899 ECG Additional Comments: AF with RVR at 140bpm, normal axis, QRS=74, MLb=109 Code Status & VTE Plan Code Status DNR/DNI VTE Prophylaxis Plan VTE Prophylaxis will be ordered: No Critical Care Time Critical Care Time: No
[2018-11-11 06:53] LABS: Echinocytes 1+; Ovalocytes 1+; Toxic Granulation 3+
[2018-11-11 06:56] LABS: ALC (manual) 0.28 K/uL (1.2-3.4); Basophils # (manual) 0.01 K/uL (0-0.2); Basophils % (manual) 0.9 %; Blast # (manual) 0.04 K/uL (0-0); Blast Cells % (manual) 4.4 %; Eosinophils # (manual) 0.01 K/uL (0-0.5); Lymphocytes # (manual) 0.28 K/uL (1.2-3.4); Lymphocytes % (manual) 29.3 %; Metamyelocytes # (manual) 0.03 K/uL (0-0); Metamyelocytes % (manual) 2.6 %; Monocytes % (manual) 10.5 %; Myelocytes % (manual) 0.4 %; Neutrophils % (manual) 48.9 %; Promyelocytes # (manual) 0.02 K/uL (0-0); Promyelocytes % (manual) 1.7 %
[2018-11-11] MEDS ORDERED: CHECK SCOPOLAMINE PATCH PLACEMENT SCH (08:00)
[2018-11-13] MEDS ORDERED: SCOPOLAMINE 1.5 MG TDSY TD SCH (21:00)
--- NOTE | 2018-11-20 09:46 | Discharge Summary ---
Date of Service November 11, 2018 Admission HPI Per Admitting Provider Mr. Davis is a 78yo male with multiple medical problems to include lung CA on chemotherapy, last treatment received 10/30/18, AF, COPD, CHF, CVA 8 months ago on anticoagulation, right septic knee on Keflex, presenting with respiratory failure. Family at bedside during encounter, provided history as patient is unresponsive. This evening the patient was found to be somnolent and minimally responsive, unable to get up from chair. Also in respiratory distress with RR in the 40's. Home O2 monitoring with undetectable oxygen saturation. Family noted crackles in bilateral lungs. Per family the patient has been declining over the past few days. EMS was called and the patient was placed on BiPAP with continuous neb treatment. Family at bedside. Patient is DNR/DNI, he expressed wishes to have very minimal life-sustaining measures taken Admission Exam (Per Admitting) Constitutional Vital Signs (Past 24 Hours): Last Vital Signs Temp 36.5 C 11/10/18 23:15 Pulse 130 H 11/10/18 23:15 Resp 31 H 11/10/18 23:15 BP 72/37 L 11/10/18 23:15 Pulse Ox 97 11/10/18 23:15 Physical Exam: General: patient unarousable, nonverbal, does not follow commands Skin: warm, dry, intact, no rashes or lesions HEENT: NC/AT, left pupil large and unreactive, right pupil pinpoint, anicteric sclera, conjunctiva without injection, nares patent, dry mucus membranes, no oropharyngeal lesions, neck supple, trachea midline, no LAD, no thyromegaly, no JVD Heart: +S1/S2, regular, tachycardic, no m/r/g Lungs: patient tachypneic, shallow breaths, equal air entry bilaterally, no rales/rhonchi/wheezes Abd: +BS, soft, NT/ND, no masses/organomegaly/ascites Ext: warm, 2+ pulses in UE/LE bilaterally, no clubbing/cyanosis or edema Neuro: unarousable, does not follow commands, does not withdraw from painful stimuli Discharge Data Consultations 11/10/18 21:44 ED Decision to Admit Stat Hospital Course (1) Acute respiratory failure with hypoxia: Patient was admitted with acute hypoxic respiratory failure. Per his wishes he wanted to aggressive life-sustaining measures taken. He was admitted to the 4th floor and comfort measures were initiated. On 11/11/18 at 0055 the patient was found to be pulseless, no spontaneous respirations, pupils fixed and dilated. He was pronounced at 0055. Family was present during time of .
== END 2018-11-11 00:55 | disposition expired | DRG 951 ==
LOC: ED 18:22 → 4E 22:45